=== PATIENT | male | born 1965 | race Asian ===

== ENCOUNTER 2022-03-10 20:09 | Outpatient (RCR) | payer OTHER, SELFPAY ==
[2022-03-10 21:00] LABS: Basophils Absolute Auto 0.02 K/uL (0.00-0.30); Basophils Percent Auto 0.3 % (0.0-3.0); Eosinophils Absolute Auto 0.07 K/uL (0.00-0.50); Eosinophils Percent Auto 1.1 % (0.0-7.0); Hematocrit 46.2 % (37.0-53.0); Hemoglobin* 14.8 gm/dL (13.5-17.5); Immature Granulocytes Abs Auto 0.01 K/uL (0.00-0.30); Lymphocytes Absolute Auto 2.08 K/uL (0.90-2.90); Lymphocytes Percent Auto 33.3 % (20-44); Mean Corpuscular HGB Conc 32 gm/dL (32-36); Mean Corpuscular Hemoglobin 30 pg (26-34); Mean Corpuscular Volume 94 fL (80-100); Monocytes Percent Auto 7.2 % (0.0-11.0); Neutrophils Absolute Auto 3.61 K/uL (1.7-7.0); Neutrophils Percent Auto 57.9 % (42.0-72.0); Platelet Count* 312 K/uL (140-440); RDW Coefficient of Variation % 12.3 % (11.5-15.5); Red Blood Count 4.93 m/uL (4.30-5.90); White Blood Count* 6.24 K/uL (4.50-11.00)
[2022-03-10 21:03] LABS: Slide Review Reflex No
[2022-11-22 17:03] LABS: Basophils Absolute Auto 0.02 K/uL (0.00-0.30); Basophils Percent Auto 0.3 % (0.0-3.0); Eosinophils Absolute Auto 0.14 K/uL (0.00-0.50); Eosinophils Percent Auto 2.2 % (0.0-7.0); Hematocrit 43.9 % (37.0-53.0); Hemoglobin* 14.4 gm/dL (13.5-17.5); Lymphocytes Absolute Auto 2.04 K/uL (0.90-2.90); Lymphocytes Percent Auto 31.4 % (20-44); Mean Corpuscular HGB Conc 33 gm/dL (32-36); Mean Corpuscular Hemoglobin 31 pg (26-34); Mean Corpuscular Volume 95 fL (80-100); Monocytes Percent Auto 7.2 % (0.0-11.0); Neutrophils Absolute Auto 3.83 K/uL (1.7-7.0); Neutrophils Percent Auto 58.9 % (42.0-72.0); Platelet Count* 272 K/uL (140-440); RDW Coefficient of Variation % 12.4 % (11.5-15.5); Red Blood Count 4.64 m/uL (4.30-5.90)
[2022-11-22 17:10] LABS: Slide Review Reflex No
== END 2023-03-03 23:00 | disposition home or self-care (01) ==
LOC: NPLBINS 20:09
PROVIDERS: PCP Internal Medicine; Visit Provider Internal Medicine
DX: Z79.899 Other long term (current) drug therapy (principal)
CPT/HCPCS: 36415; 85025

== ENCOUNTER 2022-07-06 18:06 | Emergency (ER) | payer OTHER, SELFPAY ==
[2022-07-06 19:59] VITALS: BP 125/64; PULSE 63; RESP 18; TEMP 36.4; O2SAT 97; BMI 32.9
--- NOTE | 2022-07-06 21:10 | CRLHL7_ITS ---
For Patients: As a result of the Century Cures Act, medical imaging exams and procedure reports are released immediately into your electronic medical record. You may view this report before your referring provider. If you have questions, please contact your health care provider. INDICATION: Vertigo. TECHNIQUE: CT head without contrast. COMPARISON: None. FINDINGS: CSF spaces: Within normal limits for age. Brain parenchyma: The mora-white differentiation is normal. Basal ganglia calcifications. No sign of mass, hemorrhage, or midline shift. Skull base and calvarium: The visualized paranasal sinuses and mastoid air cells demonstrate no acute or significant findings. Mildly anteroposterior elongation of the globes, nonspecific may reflect staphyloma versus axial myopia. No skull fractures. IMPRESSION: No acute intracranial abnormality. Please note that all CT scans at this facility use dose modulation, iterative reconstruction, and/or weight-based dosing when appropriate to reduce radiation dose to as low as reasonably achievable. Dictated by Holland Ng MD @ 07/06/2022 10:04:24 PM (Electronically Signed)
--- NOTE | 2022-07-06 21:10 | CRLHL7_ITS ---
For Patients: As a result of the Century Cures Act, medical imaging exams and procedure reports are released immediately into your electronic medical record. You may view this report before your referring provider. If you have questions, please contact your health care provider. DATE: 07/06/2022 CLINICAL HISTORY: Patient with vertigo. TECHNIQUE: Standard helical CT image acquisition of the neck up to the skull base after bolus intravenous contrast enhancement. Multiplanar reconstructed images performed on a separate workstation. COMPARISON: CT same day. FINDINGS: The origins of the great vessels from the aortic arch are patent. The origin of the right vertebral artery is patent. The origin of the left vertebral artery is patent. The common carotid arteries are patent. There is no stenosis at the origin of the right internal carotid artery. There is no stenosis at the origin of the left internal carotid artery. The rest of the cervical segments of the internal carotid arteries are patent up to the skull base. The left vertebral artery is dominant. The cervical segments of the vertebral arteries are patent up to the skull base. The visualized intracranial vasculature is unremarkable. The visualized lung apices are unremarkable. The thyroid gland is unremarkable. The soft tissues of the neck are unremarkable. There are degenerative changes in the cervical spine. IMPRESSION: Normal CT angiogram of the neck. Please note that all CT scans at this facility use dose modulation, iterative reconstruction, and/or weight-based dosing when appropriate to reduce radiation dose to as low as reasonably achievable. Dictated by Natasha Pritchard MD @ 07/07/2022 9:25:19 AM (Electronically Signed)
--- NOTE | 2022-07-06 21:10 | CRLHL7_ITS ---
For Patients: As a result of the Century Cures Act, medical imaging exams and procedure reports are released immediately into your electronic medical record. You may view this report before your referring provider. If you have questions, please contact your health care provider. DATE: 07/06/2022 CLINICAL HISTORY: Patient with vertigo. TECHNIQUE: Standard helical CT image acquisition through the intracranial circulation following intravenous administration of contrast material with bolus tracking. Multiplanar reconstructed images were performed and interpreted. COMPARISON: CT same day. FINDINGS: There is no cerebral aneurysm or large vessel occlusion. The right internal carotid artery is normal. The right middle cerebral artery and its branches are normal. The right anterior cerebral artery and its branches are normal. The left internal carotid artery is normal. The left middle cerebral artery and its branches are normal. The left anterior cerebral artery and its branches are normal. The anterior communicating artery is well visualized and appears normal. The right vertebral artery and PICA are normal. The left vertebral artery and PICA are normal. The left vertebral artery is dominant. The basilar artery is patent and appears normal. The right posterior cerebral artery is normal. The left posterior cerebral artery is normal. The visualized venous structures are patent. IMPRESSION: Normal CT angiogram of the head without intracranial aneurysm or other neurovascular abnormality. Please note that all CT scans at this facility use dose modulation, iterative reconstruction, and/or weight-based dosing when appropriate to reduce radiation dose to as low as reasonably achievable. Dictated by Natasha Pritchard MD @ 07/07/2022 9:27:36 AM (Electronically Signed)
--- OUTSIDE RECORDS SUMMARY | 2022-07-06 21:19 | XMS_ITS | Clinical Summary ---
:1965 Author Organization [facility] [place] [address] Care Team Providers Name Role Phone Rafaela Collins MD Primary Care Provider Allergies Active Allergy Reactions Severity Noted Date Comments Gluten Diarrhea High 04/09/2020 Lactose Diarrhea High 04/09/2020 Medications Medication Sig Dispensed Refills Start Date End Date Status prednisoLONE acetate Place 1 Drop into 0 02/18/2020 Active 1% ophthalmic both eyes every (ECONOPRED PLUS, PRED hour. FORTE, OMNIPRED) suspension ibuprofen (ADVIL; Take 600 mg by 0 Active MOTRIN) 200 mg tablet mouth once daily if needed. medication order CYCLOGYL? 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 Add as: CYCLOGYL 1 % ophthalmic solution 1 dispense in past 2 months Kan Cabrera MA ...............9:20 AM 04/09/2020 predniSONE Take 1 to 2 tabs 120 tablet 1 04/23/2020 Active (DELTASONE) 20 mg daily as directed tabletIndications: in taper Dwcs-Llinaots-Fudywx syndrome of both eyes predniSONE Take 1-1/2 tabs 100 tablet 1 05/22/2020 A ctive (DELTASONE) 10 mg daily x2 weeks tabletIndications: then 1 tab daily Jwcg-Vmjvugej-Bjegxv syndrome of both eyes, Sensorineural hearing loss (SNHL) of both ears pantoprazole TAKE 1 TABLET BY 90 tablet 0 10/16/2020 Active (PROTONIX) 40 mg MOUTH EVERY DAY delayed-release tabletIndications: Ghwy-Tedvejdo-Betgvx syndrome of both eyes Active Problems Problem Noted Date Ftgh-Kfkjrvwc-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 2-4 times a month 02/19/2020 How many drinks containing alcohol do you have on a Not aske d typical day when you are drinking? How often do you have six or more drinks on one Not asked occasion? Comment: Not asked Sex Assigned at Date Recorded Not on file Obstetrics History Last Filed Vital Signs Vital Sign Reading Time Taken Comments Blood Pressure 110/67 02/21/2020 9:05 AM CDT Pulse 66 02/21/2020 9:05 AM CDT Temperature 36.5 ??C (97.7 ??F) 02/21/2020 9:05 AM CDT Respiratory Rate 16 02/21/2020 9:05 AM CDT Oxygen Saturation 94% 02/21/2020 9:05 AM CDT Inhaled Oxygen Concentration - - Weight 106.6 kg (235 lb) 02/19/2020 2:39 PM CDT Height 177.8 cm (5' 10) 02/19/2020 2:39 PM CDT Body Mass Index 33.72 02/19/2020 2:39 PM CDT Plan of Treatment Health Maintenance Due Date Last Done Comments COVID-19 vaccine series (#1) 04/12/1966 Tdap 1976 Depression screening for age 12+ 1977 BMI (ht and wt on same day) for age 18+ 1983 Hepatitis C screening for age 18-79 1983 Tetanus booster 1985 Colonoscopy through age 75 2010 Lipids for age 45-75 2010 Zoster (shingles) series for age 50+ (1 of 2) 2015 Influenza for age 50-64 05/05/2022 Results Not on filefrom Last 3 Months Insurance Payer Benefit Plan / Subscriber ID Effective Dates Phone Addre ss Type Group [employer] [place] [employer] [id number] 2015-Present [address] [place] [address] ([id number] Advance Directives Latest Code Status on File Code Status Date Activated Date Inactivated Comments Full Code 02/19/2020 6:33 PM 02/21/2020 2:35 PM Care Teams Layer Out Plate Glass Relationship Specialty Start Date End Date Rafaela Collins MD PCP - General Internal Medicine 02/19/201999 [place] [address]
[2022-07-06 21:43] LABS: Basophils Absolute Auto 0.01 K/uL (0.00-0.30); Basophils Percent Auto 0.1 % (0.0-3.0); Eosinophils Absolute Auto 0.02 K/uL (0.00-0.50); Eosinophils Percent Auto 0.2 % (0.0-7.0); Hematocrit 47.1 % (37.0-53.0); Hemoglobin* 15.4 gm/dL (13.5-17.5); Lymphocytes Percent Auto 10.3 % (20-44); Mean Corpuscular HGB Conc 33 gm/dL (32-36); Mean Corpuscular Hemoglobin 31 pg (26-34); Mean Corpuscular Volume 94 fL (80-100); Monocytes Percent Auto 2.3 % (0.0-11.0); Platelet Count* 266 K/uL (140-440); RDW Coefficient of Variation % 12.3 % (11.5-15.5); Red Blood Count 5.04 m/uL (4.30-5.90); White Blood Count* 10.34 K/uL (4.50-11.00)
[2022-07-06 21:53] LABS: Slide Review Reflex No
[2022-07-06 22:08] LABS: Albumin* 4.8 g/dL (3.3-5.0); Chloride* 101 mmol/L (96-114); Potassium* 3.9 mmol/L (3.6-5.1); Sodium* 138 mmol/L (135-149)
[2022-07-06 22:10] LABS: Carbon Dioxide* 28 mmol/L (20-32); Creatinine* 0.8 mg/dL (0.5-1.5); Est. Creatinine Clearance* 106.46; Estimated Glomerular Filt Rate 104 ml/min
[2022-07-06 22:11] LABS: Alanine Aminotransferase* 33 U/L (4-50); Alkaline Phosphatase* 78 U/L (40-150); Aspartate Amino Transferase* 36 U/L (12-35); Bilirubin Direct* 0.1 mg/dL (0.0-0.5); Bilirubin Total* 0.5 mg/dL (0.1-1.5); Blood Urea Nitrogen* 14 mg/dL (7-30); Calcium* 9.5 mg/dL (8.4-10.6); Glucose* 130 mg/dL (60-115); Total Protein* 7.4 g/dL (6.0-8.3)
--- NOTE | 2022-07-06 22:14 | ED.GENADULT ---
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 Patient states that morning he felt a little bit off. He states that he stood up 1 time and felt a little bit lightheaded. But around 4 in he became acutely nauseated began to experience vertiginous symptoms with the room moving around him, and started vomiting profusely. This lasted for 2 hours nonstop. He stated that closed his eyes the feeling of lightheadedness and dizziness continued and this did not help the vomiting. He did state that if he stood very very still it helps a little bit but certainly did not remove the symptoms completely. After 2 hours of this, his symptoms finally started to subside and that is when he was able to get into his car and come to the ER. He states that now he feels very tired but he feels significantly better. He is no longer vertiginous. The room is no longer spinning around him. He is no longer vomiting or feeling nauseated. She states that he does get vertigo episodes because of the VKH, but has never been acute like this and associated with all the vomiting. He did call his doctor at [facility] who recommended he come to the ED to have his eye pressures checked. Related Data Home Medications Medication Instructions Recorded Confirmed mycophenolate mofetil 500 mg tablet 500 mg PO TID 07/06/22 07/06/22 prednisolone acetate 1 % eye drp ophthalmic (eye) 07/06/22 drops,suspension Allergies Allergy/AdvReac Type Severity Reaction Status Date / Time lactose AdvReac Intermediate diarrhea, Verified 07/06/22 21:33 GI upset Gluten Meal AdvReac Intermediate diarrhea, Uncoded 03/09/22 14:28 GI upset Review of Systems Status of ROS: Reports: 10 or more systems reviewed and unremarkable except as noted in History and below [facility] Surgical History (Updated 03/09/22 @ 14:28 by Nino Schaefer) History of appendectomy (2019) Social History Smoking Status: Never smoker How often do you have a drink containing alcohol: monthly or less AUDIT-C Alcohol total score: 1 Non-prescribed substance use: marijuana (any form) Exam Narrative: Exam Narrative: Well-nourished well-developed patient in no acute distress. Alert and oriented. Answers questions appropriately. Mood and affect are appropriate. Thoughts are goal oriented and rational. No tangential or magical thinking noted. Patient speaks in full sentences without needing to catch their breath. HEENT: Normocephalic atraumatic. Pupils are equally round reactive to light. Extraocular muscles are intact. Conjunctivae are moist without any icterus noted. Moist mucous membranes. Posterior pharynx is normal. Neck is soft without any lymphadenopathy or thyromegaly. No masses are appreciated. Cardiovascular: Heart is regular rate and rhythm S1 and S2 are present without any murmurs. Lungs: Clear to auscultation bilaterally no wheezes rhonchi or rales are appreciated. Patient takes deep breaths without any discomfort. Abdomen: Soft and nontender nondistended with normal bowel sounds. No guarding or rebound. No masses or organomegaly appreciated. Extremities: Bilateral lower extremities are without edema. Normal DP and PT pulses. Skin: Well perfused without any obvious rashes. Strength is 5/5 of the upper and lower extremities. Reflexes are 2+ and symmetric at the knees. Romberg sign is negative. Cranial nerves 3-12 are normal. Rvxdxe-kb-rkor is normal. Pxpg-fh-nsvq is normal. There is no nystagmus either horizontally or vertically. Gait is normal. Const: Vital Signs, click to edit/add: Vital Signs - 24 hr 07/06/22 19:59 Temperature 97.5 F L Pulse Rate [Pulse Oximeter] 63 Respiratory Rate 18 Blood Pressure [Ri ght Upper Arm] 125/64 Pulse Oximetry 97 Oxygen Delivery Me thod Room Air Course Course Hospital Course: Given the acute nature of his symptoms I was concerned about possibility of a stroke. We did proceed with a head CT, head and neck CTA. All were within normal limits. His labs were unremarkable. We were able to check his eye pressure: 18 mmHg on the right and 15 on the left-both within normal range. Vital Signs Vital signs: Initial Vital Signs Temperature 97.5 F L 07/06/22 19:59 Temperature Source Temporal Artery Scan 07/06/22 19:59 Pulse Rate 63 07/06/22 19:59 Respiratory Rate 18 07/06/22 19:59 Blood Pressure 125/64 07/06/22 19:59 Blood Pressure Mean 84 07/06/22 19:59 Blood Pressure Position Sitting 07/06/22 19:59 Pulse Oximetry 97 07/06/22 19:59 Oxygen Delivery Method 07/06/22 19:59 Vital Signs Temperature 97.5 F L 07/06/22 19:59 Pulse Rate 63 07/06/22 19:59 Respiratory Rate 18 07/06/22 19:59 Blood Pressure 125/64 07/06/22 19:59 Pulse Oximetry 97 07/06/22 19:59 Oxygen Delivery Method 07/06/22 19:59 Temperature 97.5 F L 07/06/22 19:59 Pulse Rate 63 07/06/22 19:59 Respiratory Rate 18 07/06/22 19:59 Blood Pressure 125/64 07/06/22 19:59 Pulse Oximetry 97 07/06/22 19:59 Oxygen Delivery Method 07/06/22 19:59 Medical Decision Making MDM Narrative Medical decision making narrative: Acute episode of vertigo and vomiting now resolved. Unclear if this is related to his VKH disease. Symptoms now completely resolved without any evidence of stroke on CTA. At this point given that the patient is asymptomatic, I do recommend he follow-up is team of doctors for further management. Lab Data Lab results reviewed: Yes I reviewed the patient's lab results Labs: Lab Results 07/06/22 07/06/22 Range/Units 21:25 21:25 WBC 10.34 (4.50-11.00) K/uL RBC 5.04 (4.30-5.90) m/uL Hgb 15.4 (13.5-17.5) gm/dL Hct 47.1 (37.0-53.0) % MCV 94 (80-100) fL MCH 31 (26-34) pg MCHC 33 (32-36) gm/dL RDW Coeff of Reilly 12.3 (11.5-15.5) % Plt Count 266 (140-440) K/uL Neut % (Auto) 87.0 H (42.0-72.0) % Lymph % (Auto) 10.3 L (20-44) % [place] % (Auto) 2.3 (0.0-11.0) % Eos % (Auto) 0.2 (0.0-7.0) % Baso % (Auto) 0.1 (0.0-3.0) % Neut # (Auto) 9.00 H (1.7-7.0) K/uL Lymph # (Auto) 1.10 (0.90-2.90) K/uL [place] # (Auto) 0.20 (0.00-0.90) K/UL Eos # (Auto) 0.02 (0.00-0.50) K/uL Baso # (Auto) 0.01 (0.00-0.30) K/uL Abs Immat Gran (auto) 0.01 (0.00-0.30) K/uL Sodium 138 (135-149) mmol/L Potassium 3.9 (3.6-5.1) mmol/L Chloride 101 (96-114) mmol/L Carbon Dioxide 28 (20-32) mmol/L BUN 14 (7-30) mg/dL Creatinine 0.8 (0.5-1.5) mg/dL Estimated Creat Clear 106.46 Estimated GFR 104 ml/min Glucose 130 H (60-115) mg/dL Calcium 9.5 (8.4-10.6) mg/dL Total Bilirubin 0.5 (0.1-1.5) mg/dL Direct Bilirubin 0.1 (0.0-0.5) mg/dL AST 36 H (12-35) U/L ALT 33 (4-50) U/L Alkaline Phosphatase 78 (40-150) U/L Troponin I < 0.01 L (0.01-0.04) ng/mL Total Protein 7.4 (6.0-8.3) g/dL Albumin 4.8 (3.3-5.0) g/dL Imaging Data CT scan - head: Attestation: I have reviewed the pertinent imaging results. Radiologist's impression: TECHNIQUE: CT head without contrast. COMPARISON: None. FINDINGS: CSF spaces: Within normal limits for age. Brain parenchyma: The mora-white differentiation is normal. Basal ganglia calcifications. No sign of mass, hemorrhage, or midline shift. Skull base and calvarium: The visualized paranasal sinuses and mastoid air cells demonstrate no acute or significant findings. Mildly anteroposterior elongation of the globes, nonspecific may reflect staphyloma versus axial myopia. No skull fractures. IMPRESSION: No acute intracranial abnormality. Head neck CTA: Attestation: I have reviewed the pertinent imaging results. Radiologist's impression: IMPRESSION: CTA head: Unremarkable. No sign of occlusion or significant aneurysm. CTA neck: Unremarkable. No sign of dissection or significant stenosis. ECG Data Attestation: I personally reviewed and interpreted this ECG as follows: (Sinus bradycardia with a pulse of 58, incomplete right bundle-branch block.) Discharge Plan Discharge Clinical Impression: Vertigo Patient Disposition: Home, Self-Care Condition: Improved Additional Instructions: Recommend you follow-up with your team of physicians for a follow-up examination. Prescriptions: No Action mycophenolate mofetil 500 mg tablet 500 mg PO TID prednisolone acetate 1 % drops,suspension ophthalmic (eye) Follow Up/Referrals: Rafaela Collins MD [Primary Care Provider] - Stand Alone Forms: Quantitative Medicine Info Instructions
[2022-07-06 22:26] LABS: Troponin I* < 0.01 ng/mL (0.01-0.04)
== END 2022-07-06 22:38 | disposition home or self-care (01) ==
PROVIDERS: Emergency Provider Family Medicine; PCP Internal Medicine
DX: R42 Dizziness and giddiness (principal)
CPT/HCPCS: 36415; 70450; 70496; 70498; 80048; 80076; 84484; 85025; 93005; 99285; Q9967

== ENCOUNTER 2023-03-29 11:30 | Outpatient (RCR) | payer OTHER, SELFPAY ==
[2023-03-29 11:45] LABS: Basophils Absolute Auto 0.02 K/uL (0.00-0.30); Basophils Percent Auto 0.4 % (0.0-3.0); Eosinophils Absolute Auto 0.22 K/uL (0.00-0.50); Eosinophils Percent Auto 4.1 % (0.0-7.0); Hemoglobin* 14.7 gm/dL (13.5-17.5); Lymphocytes Absolute Auto 2.21 K/uL (0.90-2.90); Lymphocytes Percent Auto 41.2 % (20-44); Mean Corpuscular HGB Conc 33 gm/dL (32-36); Mean Corpuscular Hemoglobin 31 pg (26-34); Mean Corpuscular Volume 95 fL (80-100); Monocytes Percent Auto 7.3 % (0.0-11.0); Neutrophils Absolute Auto 2.53 K/uL (1.7-7.0); Platelet Count* 271 K/uL (140-440); RDW Coefficient of Variation % 12.4 % (11.5-15.5); Red Blood Count 4.75 m/uL (4.30-5.90); White Blood Count* 5.37 K/uL (4.50-11.00)
[2023-03-29 11:50] LABS: Slide Review Reflex No
== END 2024-03-03 08:12 | disposition home or self-care (01) ==
LOC: LAB 11:30
PROVIDERS: PCP Internal Medicine; Visit Provider Internal Medicine
DX: Z79.899 Other long term (current) drug therapy (principal)
CPT/HCPCS: 36415; 85025

== ENCOUNTER 2023-08-21 15:16 | Outpatient (RCR) | payer OTHER, SELFPAY | END 2023-10-06 14:20 | disposition home or self-care (01) | PROVIDERS: PCP Internal Medicine; Visit Provider Physician Assistant Surgical | DX: M25.511 Pain in right shoulder (principal); M75.31 Calcific tendinitis of right shoulder; M53.84 Other specified dorsopathies, thoracic region; R29.898 Other symptoms and signs involving the musculoskeletal system; Z74.09 Other reduced mobility; Z51.89 Encounter for other specified aftercare | CPT/HCPCS: 97110; 97161 ==

== ENCOUNTER 2023-09-27 13:38 | Emergency (ER) | payer OTHER, SELFPAY ==
[2023-09-27] VITALS (20 sets, daily range): BP systolic 118–139; BP diastolic 76–106; PULSE 45–86; RESP 16; TEMP 35.9; O2SAT 97–100; BMI 30.3
--- NOTE | 2023-09-27 15:36 | ED.GENADULT ---
HPI - General Adult General Date Seen: 09/27/23 Chief complaint: Abdominal Pain Stated complaint: Abdominal pain Time Seen by Provider: 09/27/23 15:00 History of Present Illness HPI narrative: 57-year-old gentleman who presents to the ER today for abdominal pain. Patient began overnight last night. He was awoken sub 1st from sleep with abdominal pain. He has also had some bright red bloody stools today. He is intermittently nauseous. has h/o Bcaw-Fcskcmzp-Nnwfdp disease and takes mycophenalate . He also has a history of gluten sensitivity and can get crampy abdominal pain and bloody stools whenever he eats gluten. He has been fairly good restricting his gluten for the past few years so really has symptoms. He does not know what he ate that would have triggered a gluten reaction. He did have some gluten free pizza yesterday. He was awoken from sleep overnight with crampy abdominal pain. He had a bloody (bright red liquid blood) stool. Difficult estimate total volume but perhaps a tbsp or a couple of tbsp. He had a crampy pain that kept him up throughout the night. He was feeling tired and worn out this morning with ongoing pain. He did have 1 normal brown bowel movement this morning. Since then he has had several episodes where a head urgency to pass a BM but knows stool. This afternoon he had another episode where he thought he had to go to the bathroom but only passed a few drops of small red liquid. Difficult for him to estimate total volume but perhaps a tsp or tbsp. He is not lightheaded. He is not having fever or chills. No other body aches or systemic illness. No weakness. No rectal discomfort or any concern for skin breakdown or fissure. No recent travel. No recent antibiotics. No known sick contacts. He has been taking his mycophenolate, but actually is working with his doctors through the [facility] and may be reducing the dose upcoming. He is not on any other steroids. Related Data Home Medications Medication Instructions Recorded Confirmed mycophenolate mofetil 500 mg tablet 500 mg PO TID 07/06/22 08/15/23 prednisolone acetate 1 % eye drp ophthalmic (eye) 07/06/22 08/15/23 drops,suspension Allergies Allergy/AdvReac Type Severity Reaction Status Date / Time lactose AdvReac Intermediate diarrhea, Verified 08/15/23 14:37 GI upset gluten AdvReac Gastrointestinal Verified 08/15/23 14:37 [facility]et [facility] Medical History (Updated 09/27/23 @ 18:58 by Vinay Bull MD) Lesion of vocal cord (~1970) ?J38.3 - Other diseases of vocal cords (ICD-10) Surgical History (Updated 08/14/23 @ 14:52 by Magaly Naik ~ [facility], [facility]) History of arthroscopy of right knee (12/06/05) ?Z98.890 - Other specified postprocedural states (ICD-10) History of appendectomy (03/02/19) ?Z90.49 - Acquired absence of other specified parts of digestive tract (ICD-10) Social History Smoking Status: Never smoker How often do you have a drink containing alcohol: monthly or less AUDIT-C Alcohol total score: 1 Non-prescribed substance use: marijuana (any form) Exam Narrative: Exam Narrative: Constitutional: Appears well-developed and well-nourished. Alert. Conversant. Non toxic. HENT: Head: Atraumatic. Nose: Nose normal. Mouth/Throat: Oral mucosa is clear and moist. no trismus. Pharynx normal. Tonsils symmetric. No tonsillar enlargement, erythema, or exudate. Eyes: Conjunctivae normal. EOM normal. Pupils equal, round, and reactive to light. No scleral icterus. Neck: Normal range of motion. Neck supple. No tracheal deviation present. Cardiovascular: Normal rate, regular rhythm. No gallop. No friction rub. No murmur heard. Symmetric radial artery pulses Pulmonary/Chest: Effort normal. No stridor. No respiratory distress. No wheezes. No rales. No rhonchi . No tenderness. Abdominal: Soft. Bowel sounds normal. No distension. No mass. No tenderness. No rebound. No guarding. Musculoskeletal: RUE: Normal range of motion. No tenderness. No deformity LUE: Normal range of motion. No tenderness. No deformity RLE: Normal range of motion. No edema. No tenderness. No deformity LLE: Normal range of motion. No edema. No tenderness. No deformity Lymph: No cervical adenopathy. Neurological: Alert and oriented to person, place, and time. Normal strength. CN II-VII intact. No sensory deficit. GCS eye subscore is 4. GCS verbal subscore is 5. GCS motor subscore is 6. Normal coordination Skin: Skin is warm and dry. No rash noted. No pallor. Normal capillary refill. Psychiatric: Normal mood. Normal affect. Const: Vital Signs, click to edit/add: Vital Signs - 24 hr 09/27/23 13:44 09/27/23 13:58 09/27/23 13:59 Temperature 96.7 F L Pulse Rate 66 64 Pulse Rate [Pulse Oximeter] 45 L Respiratory Rate 16 Blood Pressure 139/106 H Blood Pressure [Ri ght Upper Arm] 118/76 Pulse Oximetry 100 100 [facility] 09/27/23 14:00 09/27/23 14:15 09/27/23 14:30 Temperature Pulse Rate 62 64 61 Pulse Rate [Pulse Oximeter] Respiratory Rate Blood Pressure Blood Pressure [Ri ght Upper Arm] Pulse Oximetry 99 100 100 [facility] 09/27/23 14:45 09/27/23 15:00 09/27/23 15:15 Temperature Pulse Rate 67 68 75 Pulse Rate [Pulse Oximeter] Respiratory Rate Blood Pressure Blood Pressure [Ri ght Upper Arm] Pulse Oximetry 100 99 99 [facility] 09/27/23 15:33 09/27/23 15:45 09/27/23 16:00 Temperature Pulse Rate 73 73 66 Pulse Rate [Pulse Oximeter] Respiratory Rate Blood Pressure Blood Pressure [Ri ght Upper Arm] Pulse Oximetry 99 100 99 [facility] 09/27/23 16:25 09/27/23 16:30 09/27/23 16:45 Temperature Pulse Rate 75 75 78 Pulse Rate [Pulse Oximeter] Respiratory Rate Blood Pressure Blood Pressure [Ri ght Upper Arm] Pulse Oximetry 97 98 99 [facility] 09/27/23 17:00 09/27/23 17:15 09/27/23 17:30 Temperature Pulse Rate 75 82 77 Pulse Rate [Pulse Oximeter] Respiratory Rate Blood Pressure Blood Pressure [Ri ght Upper Arm] Pulse Oximetry 97 97 97 [facility] 09/27/23 17:45 Temperature Pulse Rate 79 Pulse Rate [Pulse Oximeter] Respiratory Rate Blood Pressure Blood Pressure [Ri ght Upper Arm] Pulse Oximetry 97 Oxygen Delivery Me thod Course Course ED Course: Recheck-still declines pain meds. Doing well. No diarrhea in the past couple of hours since our 1st encounter. Pain still mild and tolerable. If anything, getting better. He is thirsty and wants to go home. Vital Signs Vital signs: Initial Vital Signs Temperature 96.7 F L 09/27/23 13:44 Temperature Source Temporal Artery Scan 09/27/23 13:44 Pulse Rate 45 L 09/27/23 13:44 Pulse Rhythm Irregular 09/27/23 13:44 Respiratory Rate 16 09/27/23 13:44 Blood Pressure 118/76 09/27/23 13:44 Blood Pressure Mean 90 09/27/23 13:44 Blood Pressure Position Sitting 09/27/23 13:44 Pulse Oximetry 100 09/27/23 13:44 Oxygen Delivery Method Room Air 09/27/23 13:44 Vital Signs Temperature 96.7 F L 09/27/23 13:44 Pulse Rate 45 L 09/27/23 13:44 Respiratory Rate 16 09/27/23 13:44 Blood Pressure 118/76 09/27/23 13:44 Pulse Oximetry 100 09/27/23 13:44 Oxygen Delivery Method Room Air 09/27/23 13:44 Temperature 96.7 F L 09/27/23 13:44 Pulse Rate 79 09/27/23 17:45 Respiratory Rate 16 09/27/23 13:44 Blood Pressure 139/106 H 09/27/23 13:58 Pulse Oximetry 97 09/27/23 17:45 Oxygen Delivery Method Room Air 09/27/23 13:44 Medical Decision Making [facility] Narrative Medical decision making narrative: Presented to the Emergency Department with bilateral lower quadrant, left> right sided abdominal pain along with a couple of bloody stools/a bit of diarrhea. The differential diagnosis of abdominal pain includes: Appendicitis, Bowel Obstruction, Ulcer, Ischemia, Cholecystitis, Diverticulitis, Pancreatitis, UTI, kidney stone, Enteritis/Colitis, amongst many other etiologies. []Laboratory testing does not reveal a cause for the patient's pain. Differential would also include colitis, such as infectious colitis, autoimmune. Less likely would be ischemic, given young age. He is on CellCept for his autoimmune disease which put him at risk for infections. He also has a history of gluten sensitivity so could be having symptoms due to gluten enteropathy as well. CT Imaging is noted to be normal. Laboratory workup reassuring. The exact etiology of the abdominal pain and bloody stool is not clear at this time. No life threatening cause or need for emergent surgery or hospital admission is detected today. The patient was advised that if symptoms do not completely resolve within another 12-24 hours re-evaluation with primary care or return to the ED is indicated. The patient also understands that if they worsen, they should return to the ER right away. I discussed the uncertainty about the diagnosis and answered the patient's questions. Abdominal pain return precautions discussed. Will order outpatient stool culture and C diff since he is on mycophenolate. He is provided with a stool collection kit and he will return back sample to the lab if ongoing diarrhea. Lab Data Labs: Lab Results 09/27/23 Range/Units 15:44 WBC 8.30 (4.50-11.00) K/uL RBC 4.76 (4.30-5.90) m/uL Hgb 14.5 (13.5-17.5) gm/dL Hct 45.1 (37.0-53.0) % MCV 95 (80-100) fL MCH 31 (26-34) pg MCHC 32 (32-36) gm/dL RDW Coeff of Reilly 12.4 (11.5-15.5) % Plt Count 289 (140-440) K/uL Neut % (Auto) 80.0 H (42.0-72.0) % Lymph % (Auto) 13.6 L (20-44) % Elk % (Auto) 6.0 (0.0-11.0) % Eos % (Auto) 0.2 (0.0-7.0) % Baso % (Auto) 0.1 (0.0-3.0) % Neut # (Auto) 6.60 (1.7-7.0) K/uL Lymph # (Auto) 1.10 (0.90-2.90) K/uL Elk # (Auto) 0.50 (0.00-0.90) K/UL Eos # (Auto) 0.02 (0.00-0.50) K/uL Baso # (Auto) 0.01 (0.00-0.30) K/uL Abs Immat Gran (auto) 0.01 (0.00-0.30) K/uL Imm/Tot Granulo (auto) 0.1 % Sodium 138 (135-149) mmol/L Potassium 4.1 (3.6-5.1) mmol/L Chloride 105 (96-114) mmol/L Carbon Dioxide 26 (20-32) mmol/L Anion Gap 7 (7-15) mEq/L BUN 11 (7-30) mg/dL Creatinine 0.6 (0.5-1.5) mg/dL Estimated Creat Clear 140.25 Estimated GFR 113 ml/min Glucose 105 (60-115) mg/dL Calcium 8.9 (8.4-10.6) mg/dL Total Bilirubin 0.6 (0.1-1.5) mg/dL AST 41 H (12-35) U/L ALT 40 (4-50) U/L Alkaline Phosphatase 73 (40-150) U/L Total Protein 6.8 (6.0-8.3) g/dL Albumin 4.2 (3.3-5.0) g/dL Lipase 46 (23-300) U/L Discharge Plan Discharge Clinical Impression: Bloody stool, Abdominal pain Patient Disposition: Home, Self-Care Condition: Stable Instructions: Rectal Bleeding (ED), Abdominal Pain (ED) Additional Instructions: As we discussed, please come back to the ER right away if her symptoms worsen. If your symptoms are not completely resolved within 24 hours, please come back to the ER for a recheck. If you have ongoing bloody stool or diarrhea, please collect a sample and bring back stool to the lab for a stool culture and Clostridium difficile test. Prescriptions: No Action mycophenolate mofetil 500 mg tablet 500 mg PO TID prednisolone acetate 1 % drops,suspension ophthalmic (eye) Follow Up/Referrals: Rafaela Collins MD [Primary Care Provider] - Stand Alone Forms: [employer] Info Instructions
--- NOTE | 2023-09-27 16:00 | CRLHL7_ITS ---
For Patients: As a result of the Century Cures Act, medical imaging exams and procedure reports are released immediately into your electronic medical record. You may view this report before your referring provider. If you have questions, please contact your health care provider. INDICATION: ABD PAIN, BLOODY DIARRHEA X1 DAY TECHNIQUE: CT abdomen and pelvis acquired with 100 cc Isovue 370 IV contrast. COMPARISON: CT abdomen/pelvis on March 02, 2019 FINDINGS: Lower chest: Stable calcified granulomas in the medial left lower lobe. Liver: Unremarkable. Normal in size and attenuation. No suspicious masses. Gallbladder and bile ducts: Unremarkable. No stones or inflammation. No biliary dilatation. Pancreas: Unremarkable. No mass or inflammation. Spleen: Unremarkable. Normal in size. No masses. Adrenal glands: Unremarkable. No nodules. Kidneys: Unremarkable. No suspicious masses. Tiny nonobstructing 2 millimeter stone at the lower pole of the right kidney. No hydronephrosis. GI tract: No evidence of bowel obstruction or inflammation. Status post appendectomy. Few colonic diverticula without CT evidence of acute diverticulitis. Vasculature: Abdominal aorta is normal in caliber. Mesenteric arteries are patent. Lymph nodes: No lymphadenopathy. Peritoneum/Abdominal Wall: Unremarkable. No sign of mass or infiltration. No free air or significant free fluid. Pelvis: Mildly enlarged prostate with similar appearing central calcifications. Bones: No acute fracture or malalignment. Similar-appearing degenerative disc disease throughout the lumbar spine. No suspicious osseous lesions. IMPRESSION: 1. No CT evidence of an acute process involving the abdomen or pelvis. 2. Incidental findings as detailed above. Please note that all CT scans at this facility use dose modulation, iterative reconstruction, and/or weight-based dosing when appropriate to reduce radiation dose to as low as reasonably achievable. Dictated by Anatoliy Christie MD @ 09/27/2023 4:44:26 PM (Electronically Signed)
[2023-09-27 16:17] LABS: Hematocrit 45.1 % (37.0-53.0); Hemoglobin* 14.5 gm/dL (13.5-17.5); Mean Corpuscular HGB Conc 32 gm/dL (32-36); Mean Corpuscular Hemoglobin 31 pg (26-34); Mean Corpuscular Volume 95 fL (80-100); Platelet Count* 289 K/uL (140-440); Red Blood Count 4.76 m/uL (4.30-5.90)
[2023-09-27 16:18] LABS: Basophils Absolute Auto 0.01 K/uL (0.00-0.30); Basophils Percent Auto 0.1 % (0.0-3.0); Eosinophils Absolute Auto 0.02 K/uL (0.00-0.50); Eosinophils Percent Auto 0.2 % (0.0-7.0); Immature Granulocytes Abs Auto 0.01 K/uL (0.00-0.30); Immature Granulocytes Pct Auto 0.1 %; Lymphocytes Percent Auto 13.6 % (20-44); RDW Coefficient of Variation % 12.4 % (11.5-15.5)
[2023-09-27 16:31] LABS: Slide Review Reflex No
[2023-09-27 16:35] LABS: Albumin* 4.2 g/dL (3.3-5.0); Chloride* 105 mmol/L (96-114); Potassium* 4.1 mmol/L (3.6-5.1); Sodium* 138 mmol/L (135-149)
[2023-09-27 16:38] LABS: Alanine Aminotransferase* 40 U/L (4-50); Alkaline Phosphatase* 73 U/L (40-150); Anion Gap 7 mEq/L (7-15); Aspartate Amino Transferase* 41 U/L (12-35); Bilirubin Total* 0.6 mg/dL (0.1-1.5); Blood Urea Nitrogen* 11 mg/dL (7-30); Calcium* 8.9 mg/dL (8.4-10.6); Carbon Dioxide* 26 mmol/L (20-32); Creatinine* 0.6 mg/dL (0.5-1.5); Est. Creatinine Clearance* 140.25; Estimated Glomerular Filt Rate 113 ml/min; Glucose* 105 mg/dL (60-115); Lipase* 46 U/L (23-300); Total Protein* 6.8 g/dL (6.0-8.3)
--- OUTSIDE RECORDS SUMMARY | 2023-09-27 16:38 | XMS_ITS | Encounter Summary ---
Author Name Unknown Organization [facility] Address [address] [place] [address] Care Team Providers Care Cooler Worker Name Role Phone Elsewhere, Pcp Primary Care Provider Unavailabl e Encounter Details Date Type Department Care Team (Late st Contact Info) Description 05/01/2023 Orders Only Division of Rheumatology in [place], [place] [address] [place] [address] Christofer England, FITNESS CLUB MANAGER, C.N.P. [address] [place] [address] Vogt Koyanagi Syndrome Bilateral Social History Tobacco Use Types Packs/Day Years Used Date Smoking Tobacco: Passive Smo ke Exposure - Never Smoker Passive Smoke Exposure: Yes Smokeless Tobacco: Former Chew Quit: 10/01/1988 Alcohol Use Standard Drinks/Week Comments Yes 4 (1 standard drink = 0.6 oz pur e alcohol) Humiliation, Afraid, Rape, and Kick questionnair e Answer Date Recorded Within the last year, have y ou been afraid of your partner or ex-partner? No 04/07/2023 Within the last year, have y ou been humiliated or emotionally abused in other ways by your partner or ex-partner? No Within the last year, have y ou been kicked, hit, slapped, or otherwise physically hurt by your partner or ex-partner? No 04/07/2023 Within the last year, have y ou been raped or forced to have any kind of sexual activity by your partner or ex-partner? No 04/07/2023 Social Connection and Isolation Panel [NHANES] A nswer Date Recorded In a typical week, how many times do you talk on the phone with family, friends, or neighbors? Never 08/15/2021 How often do you get together with friends or re latives? Once a week 08/15/2021 How often do you attend yarsani or orthodox serv ices? Never 08/15/2021 Do you belong to any clubs o r organizations such as yarsani groups, unions, fraternal or athletic groups, or school groups? No 08/15/2021 How often do you attend meet ings of the clubs or organizations you belong to? Never 08/15/2021 Are you , , di vorced, , never , or living with a partner? 08/15/2021 AUDIT-C Answer Date Recorded Q1: How often do you have a drink containing alc ohol? 2-3 times a week 08/15/2021 Q2: How many drinks containi ng alcohol do you have on a typical day when you are drinking? 1 or 2 08/15/2021 Q3: How often do you have si x or more drinks on one occasion? Never 08/15/2021 Overall Financial Resource Strain (CARDIA) Answe r Date Recorded How hard is it for you to pa y for the very basics like food, housing, medical care, and heating? Not hard at all 04/07/2023 [facility] of Occupat ional Health - Occupational Stress Questionnaire Answer Date Recorded Do you feel stress - tense, restless, nervous, or anxious, or unable to sleep at night because your mind is troubled all the time - these days? To some extent 08/15/2021 Exercise Vital Sign Answer Date Recorde d On average, how many days pe r week do you engage in moderate to strenuous exercise (like a brisk walk)? 4 days 02/01/2023 On average, how many minutes do you engage in exercise at this level? 70 min 02/01/2023 Hunger Vital Sign Answer Date Recorded Within the past 12 months, y ou worried that your food would run out before you got the money to buy more. Never true 04/07/20 23 Within the past 12 months, t he food you bought just didn't last and you didn't have money to get more. Never true 04/07/2023 PRAPARE - Transportation Answer Date Re corded In the past 12 months, has l ack of transportation kept you from medical appointments or from getting medications? No 12/2022 In the past 12 months, has l ack of transportation kept you from meetings, work, or from getting things needed for daily living? No 04/07/2023 Nutrition Answer Date Recorded Nutrition: EVOO Fat Source No 02/01 On average, how many serving s of fruits and vegetables do you eat per day (serving size is equal to 1 cup or approximately the size of a tennis ball)? 0-2 02/01/2023 Dental Answer Date Recorded Dental: Regular Dentist Yes 09/04/19 Employment Answer Date Recorded Employment status Employed and actively working without restrictions 02/01/2023 Housing Stability Answer Date Recorded What is your living situation today? I have a [facility] place to live 04/07/2023 Education Answer Date Recorded What is the highest level of school you have completed or the highest degree you have received? Professional school degree (e.g., MD, DDS, DVM, EFREM) 07/16/2020 Sex and Gender Information Value Date Recorded Sex Assigned at Male 08/15/2021 10:21 AM INSPECTOR [employer] Gender Identity Male 08/15/2021 10:21 AM INSPECTOR [employer] Sexual Orientation Straight 08/15/2021 10 :21 AM INSPECTOR [employer]S documented as of this encounter Plan of Treatment Not on file documented as of this encounter Visit Diagnoses Diagnosis Vogt Koyanagi Syndrome Bilateral documented in this encounter Care Teams Cooler Worker Relationship Specialty Start Date End Date Elsewhere, Pcp PCP - General Internal Medicine 04/13/23 documented as of this encounter
--- OUTSIDE RECORDS SUMMARY | 2023-09-27 16:38 | XMS_ITS | Clinical Summary ---
Author Name Unknown Organization [facility] Address [place], [place] [address] Care Team Providers Care Cylinder Honer Name Role Phone Rafaela Collins MD Primary Care Provider [phone] Allergies Active Allergy Reactions Criticality Noted Date Comments Gluten Diarrhea High 04/09/2020 Lactose Diarrhea High 04/09/2020 Medications Medication Sig Dispensed Refills Start Date End Date Status prednisoLONE acetate 1% ophthalmic (ECONOPRED PLUS, PRED FORTE, OMNIPRED) suspension Place 1 Drop into both eyes every hour. 0 02/18/2020 Active ibuprofen (ADVIL; MOTRIN) 200 mg tablet Take 600 mg by mouth once daily if needed. 0 Active medication order composer CYCLOGYL? AYLA 1% OP New Add as: CYCLOGYL 1 % ophthalmic solution 1 dispense in past 2 months Maryistarikki Cabrera MA ...............9:2 0 AM 04/09/2020 0 04/09/2020 Active predniSONE (DELTASONE) 20 mg tabletIndications:V oaa-Juokzsoe-Ojfxka syndrome of both eyes Take 1 to 2 tabs daily as directed in taper 120 tablet 1 04/23/2020 Active predniSONE (DELTASONE) 10 mg tabletIndications:V xsk-Dtvwdzdr-Hbgcuc syndrome of both eyes,Sensorineural hearing loss (SNHL) of both ears Take 1-1/2 tabs daily x2 weeks then 1 tab daily 100 tablet 1 05/22/2020 Active pantoprazole (PROTONIX) 40 mg delayed-release tabletIndications:V jwk-Kljgslqn-Vbslvj syndrome of both eyes TAKE 1 TABLET BY MOUTH EVERY DAY 90 tablet 0 10/16/2020 Active Active Problems Problem Noted Date Diagnosed Date Gerg-Jqqglhpv-Yebfei syndrome of both eyes 02/18 Acute headache 02/19/2020 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 Social History Tobacco Use Types Packs/Day Years Used Date Smoking Tobacco: Never Smokeless Tobacco: Former Chew Quit: 02/27/1990 Alcohol Use Standard Drinks/Week Comments Yes 0 (1 standard drink = 0.6 oz pur e alcohol) Social Connections Answer Date Recorded Frequency of Communication with Friends and Fami ly Not on file 09/04/2021 Financial Resource Strain Answer Date R ecorded Difficulty of Paying Living Expenses Not on file 09/04/2021 Difficulty of Paying Living Expenses Not on file 09/04/2021 Sex and Gender Information Value Date Recorded Sex Assigned at Not on file Gender Identity Not on file Sexual Orientation Not on file Obstetrics History Last Filed Vital Signs Vital Sign Reading Time Taken Comments Blood Pressure 110/67 02/21/2020 9:05 AM CDT Pulse 66 02/21/2020 9:05 AM CDT Temperature 36.5 ??C (97.7 ??F) 02/21/2020 9:05 AM CD T Respiratory Rate 16 02/21/2020 9:05 AM CDT [...] 1976 Depression screening for age 12+ 1977 HIV for age 15-65 1980 BMI (ht and wt on same day) for age 18+ 1983 Hepatitis C screening for ag e 18-79 1983 Tetanus booster 1985 Colonoscopy through age 75 2010 Lipids for age 45-75 2010 Zoster (shingles) series for age 50+ (1 of 2) 2015 Influenza for age 50-64 05/05/2023 Pneumococcal series for age 6-64 Aged Out No longer eligible based on patient's age to complete this topic Advance Directives Latest Code Status on File Code Status Date Activated Date Inactivated Comments Full Code 02/19/2020 6:33 PM 02/21/2020 2:35 PM Care Teams Cylinder Honer Relationship Specialty Start Date End Date Rafaela Collins MD [address] [place] [address] PCP - General Internal Medicine 02/19/20
--- OUTSIDE RECORDS SUMMARY | 2023-09-27 16:38 | XMS_ITS | Encounter Summary ---
Author Name Unknown Organization [facility] Address [address] [place] [address] Care Team Providers Care Salary And Wage Administrator Name Role Phone Elsewhere, Pcp Primary Care Provider Unavailabl e Reason for Visit * Reason Onset Date Comments Med Refill Order Clarification 05/03/2023 QTY still no t right Encounter Details Date Type Department Care Team (Late st Contact Info) Description 05/03/2023 Refill Division of Rheumatology in [place], [place] [address] [place] [address] Christofer England, TESTING ENGINEER, C.N.P. [address] [place] [address] Med Refill; Order Clarification (QTY still not right) Social History Tobacco Use Types Packs/Day Years [...] week 08/15/2021 How often do you attend jainism or episcopalian serv ices? Never 08/15/2021 Do you belong to any clubs o r organizations such as jainism groups, unions, fraternal or athletic groups, or [...] and heating? Not hard at all 04/07/2023 [facility] of Occupat ional Health - Occupational Stress [...] money to buy more. Never true 04/07/20 Within the past 12 months, t he [...] your living situation today? I have a [facility] place to live 04/07/2023 Education Answer Date Recorded What is the highest level of school you have completed or the highest degree you have received? Professional school degree (e.g., MD, DDS, DVM, EFREM) 07/16/2020 Sex and Gender Information Value Date Recorded Sex Assigned at Male 08/15/2021 10:21 AM DINKEY MECHANIC Gender Identity Male 08/15/2021 10:21 AM DINKEY MECHANIC Sexual Orientation Straight 08/15/2021 10 :21 AM DINKEY MECHANIC documented as of this encounter Miscellaneous Notes * Addendum Note - Kassidy Liang R.N. - 05/23/2023 1:02 PM CDTAddended by: KASSIDY LIANG on: 05/23/2023 01:02 PM Modules accepted: Orders * Telephone Encounter - Christofer England APRN, C.N.P. - 05/03/2023 12:36 PM CDT Updated rx sent. documented in this encounter Plan of Treatment Not on file documented as of this encounter Visit Diagnoses Diagnosis Vogt Koyanagi Syndrome Bilateral documented in this encounter Care Teams Salary And Wage Administrator Relationship Specialty Start Date End Date Elsewhere, Pcp PCP - General Internal Medicine 04/13/23 documented as of this encounter
--- OUTSIDE RECORDS SUMMARY | 2023-09-27 16:38 | XMS_ITS | Encounter Summary ---
Author Name Unknown Organization [facility] Address [address] [place] [address] Care Team Providers Care Computer Programmer Name Role Phone Elsewhere, Pcp Primary Care Provider Unavailabl e Encounter Details Date Type Department Care Team (Late st Contact Info) Description 04/27/2023 3:00 PM CDT Ancillary Procedure Department of Ophthalmology Social History Tobacco Use Types Packs/Day Years [...] week 08/15/2021 How often do you attend scientology or religion serv ices? Never 08/15/2021 Do you belong to any clubs o r organizations such as scientology groups, unions, fraternal or athletic groups, or [...] and heating? Not hard at all 04/07/2023 [facility] - Occupational Stress [...] your living situation today? I have a [facility] place to live 04/07/2023 Education Answer Date Recorded What is the highest level of school you have completed or the highest degree you have received? Professional school degree (e.g., MD, DDS, DVM, EFREM) 07/16/2020 Sex and Gender Information Value Date Recorded Sex Assigned at Male 08/15/2021 10:21 AM COPYMAN Gender Identity Male 08/15/2021 10:21 AM COPYMAN Sexual Orientation Straight 08/15/2021 10 :21 AM COPYMAN documented as of this encounter Plan of Treatment Not on file documented as of this encounter Procedures Procedure Name Priority Date/Time Associated Diagnosis Comments OPHTHALMOLOGY IMAGE EXAM Routine 04/27/2023 3:00 PM CDT documented in this encounter Results * Generic Eye Procedure 200 R-Ophthalmology Image Exam (04/27/2023 3:00 PM CDT) 04/27/2023 3:00 PM CDT Narrative IIMS - 04/27/2023 3:23 PM CDT This order has been created and auto-finalized to support the import of images acquired without order. The clinical documentation to support these images can be found on the encounter that produced images. Provider Not In System IMG NON RAD IMAGI NG PROCEDURES IIMS NA documented in this encounter Visit Diagnoses Not on filedocumented in this encounter Care Teams Computer Programmer Relationship Specialty Start Date End Date Elsewhere, Pcp PCP - General Internal Medicine 04/13/23 documented as of this encounter
--- OUTSIDE RECORDS SUMMARY | 2023-09-27 16:38 | XMS_ITS | Encounter Summary ---
Author Name Unknown Organization [facility] Address [address] [place] [address] Care Team Providers Care Provider Relations Consultant Name Role Phone Elsewhere, Pcp Primary Care Provider Unavailabl e Reason for Visit * Outpatient (Routine) - Closed Specialty Diagnoses / Procedures Referred By Don t Referred To Contact Ophthalmology Diagnoses Vogt Koyanagi Syndrome Bilateral Procedures OPTICAL COHERENCE TOMOGRAPHY - MACULA/RETINA - OU - BOTH EYES OPH TEST OCT Sarah Dick M.D. [address] [place] [phone] Rst Oph [place] [address] [place] [phone] Referral ID Status Reason Start Date Expiration Date Visits Re quested Visits Authorized [id number] Closed 04/20/2020 04/27/2025 3 3 Encounter Details Date Type Department Care Team (Late st Contact Info) Description 04/27/2023 2:30 PM CDT Ancillary Procedure Department of Ophthalmology in [place], [place] [address] [place] [phone] Sarah Dick M.D. [address] [place] [phone] Social History Tobacco Use Types Packs/Day Years [...] week 08/15/2021 How often do you attend jew or presybeterian serv ices? Never 08/15/2021 Do you belong to any clubs o r organizations such as jew groups, unions, fraternal or athletic groups, or [...] and heating? Not hard at all 04/07/2023 [facility] Occupat ional Health - Occupational Stress [...] your living situation today? I have a [facility] place to live 04/07/2023 Education Answer Date Recorded What is the highest level of school you have completed or the highest degree you have received? Professional school degree (e.g., MD, DDS, DVM, EFREM) 07/16/2020 Sex and Gender Information Value Date Recorded Sex Assigned at Male 08/15/2021 10:21 AM BOX LOADER Gender Identity Male 08/15/2021 10:21 AM BOX LOADER Sexual Orientation Straight 08/15/2021 10 :21 AM BOX LOADER documented as of this encounter Plan of Treatment Not on file documented as of this encounter Procedures Procedure Name Priority Date/Time Associated Diagnosis Comments ANGIOGRAPHY - OU - BOTH EYES Routine 04/27/2023 3:12 PM CDT Vogt Koyanagi Syndrome Bilateral documented in this encounter Results * Fluorescein Angiography - OU - Both Eyes (04/27/2023 3:12 PM CDT) Narrative OPHTHALMOLOGY IMAGING EXAM - 05/11/2023 4:10 PM CDT Right Eye Dye used is fluorescein. Fluorescein dose given is normal. Field of view is ultra-wide view. Left Eye Dye used is fluorescein. Fluorescein dose given is normal. Field of view is ultra-wide view. Notes Optos fluorescein angiography The right eye has a circular area of hyperfluorescence superior to the optic nerve (appears to be a window defect). 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 There is no significant peripheral vascular leakage. No late disc or macular leakage. The left eye has punctate hyperfluorescent stippling in the superotemporal macula on earlier frames, but these areas do not leak on late frames. There are also small spots of hyperfluorescence in the superonasal and inferior periphery. No late disc or macular leakage. Sarah Dick M.D. OPHTH PHOTOGRAPHY OPHTHALMOLOGY IMAGING EXAM documented in this encounter Visit Diagnoses Not on filedocumented in this encounter Care Teams Provider Relations Consultant Relationship Specialty Start Date End Date Elsewhere, Pcp PCP - General Internal Medicine 04/13/23 documented as of this encounter
--- OUTSIDE RECORDS SUMMARY | 2023-09-27 16:38 | XMS_ITS | Encounter Summary ---
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 [address] [place] [address] [facility] Referral ID Status Reason Start Date Expiration Date Visits Re quested Visits Authorized [id number] Closed 04/20/2020 05/20/2035 1 1 Encounter Details Date Type Department Care Team (Latest Contact Info) Description 07/06/2023 9:00 AM CDT Office Visit Department of Ophthalmology in [place], [place] [address] [place] [address] Sarah Dick M.D. [address] [place] [id number] Vogt Koyanagi Syndrome Bilateral (Primary Dx); Membrane Macula Epiretinal Bilateral Social History Tobacco Use Types Packs/Day [...] week 08/15/2021 How often do you attend quaker or mandaeism serv ices? Never 08/15/2021 Do you belong to any clubs o r organizations such as quaker groups, unions, fraternal or athletic groups, or [...] and heating? Not hard at all 04/07/2023 [facility] - Occupational Stress Questionnaire Answer Date Recorded [...] your living situation today? I have a [facility] place to live 04/07/2023 Education Answer Date Recorded What is the highest level of school you have completed or the highest degree you have received? Professional school degree (e.g., MD, DDS, DVM, EFREM) 07/16/2020 Sex and Gender Information Value Date Recorded Sex Assigned at Male 08/15/2021 10:21 AM BIBLE READER Gender Identity Male 08/15/2021 10:21 AM BIBLE READER Sexual Orientation Straight 08/15/2021 10 :21 AM BIBLE READER documented as of this encounter Progress Notes * Sarah Dick M.D. 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 He is adopted, Mother is English, father of ancestry His symptoms started when he woke around 330am with the most painful headache he had ever had, centered just above his right eye. He thought he had injured his head in his sleep. Within 1-2 days, he noticed difficulty going from distance to near vision. (He wears contact lens with monovision.) Another day or so later, he noticed difficulty with distance vision. He had a regular appointment with [facility] eye doctor for a check up - called for an earlier appointment. Saw Dr. Shahid 2-3 days after that. He did not have any redness or light sensitivity at that time. 02/18/20 - block stacker Dr. Fifi Shahid at [facility] in [place]. He had had red eyes for 2-3 weeks prior to presentation with intermittent headache behind the eyes. He was diagnosed bilateral anterior uveitis and prescribed topical steroids and cycloplegic eye drops. She referred him to his PCP Dr. Rafaela Collins to assess for systemic disease. 02/18/20 - Dr. Collins. No synovitis present on exam. Ordered CBC/diff, ESR, CRP, LATRICIA, TSH, CCP, RF, CMP (all normal/negative except AST slightly elevated.) He was referred to stave machine tender Dr. Ledesma in [place]. On 02/19/20, he saw Dr. Ledesma who sent him directly to a retina specialist. He saw Dr. Zelaya on 02/19/20 after five days of headaches and worsening vision. Prior to the onset of vision changes, he had had a prodrome of flu-like symptoms followed by a severe headache and then vision changes. 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 He was admitted for IV steroids x 3 doses. His vision improved within 24 hours. Additional testing included blood cultures, syphilis, quantiferon, chest x-ray, Lyme screening, lysozyme, HLA-B27. After the three doses of IV steroids, he was put on high dose oral prednisone [address] Logan Zelaya on 02/26/20. VA 20/25 and 20/30. Both eyes had decreased disc edema and vitreous cell. The choroidal folds and macular serous fluid were also resolving. [place] Dr. Nancy Meeks - 02/28/20. He was on prednisone at 60 mg. Oral prednisone was tapered as follows: 03/04/20 40 mg x 1wk, then continued to decrease by [address] Zelaya on 03/25/20. VA 20/20 both eyes. He had run out of eye drops and developed bilateral red eyes and right sided headache. Anterior segment inflammation was resolved, decreased disc edema, rare vitreous cell, resolved subretinal fluid in both eyes. Oral prednisone had been tapered from 60mg to 20 mg daily. Decreased prednisolone drops to BID both eyes, recommended continued slow taper of oral prednisone. As soon as he decreased prednisone from 20 mg to 10 mg, he developed tinnitus and difficulty hearing. Initially he thought there was something wrong with the TV when his hearing changed, but then he switched to a different TV and realized that the problem was with his ears. Audiometry testing on 04/2020 showed low worse than high tone hearing loss bilaterally as well as cochlear sensitivity. He saw ENT specialist Dr. Garnica who recommended increasing PO prednisone to10-20 mg daily as well as evaluation with ENT and rheumatology at [place]. Subsequently, he did increase prednisone to 20mg x 2 wks, 15 mg x 2wks, then 10 mg. The tinnitus isresolved, he is not sure if the hearing loss has improved. The most recent telemedicine visit with Dr. Meeks was 05/22/20. PMH Gluten sensitivity, lactose intolerance. 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 # Posterior vitreous detachment, right eye # status post LASIK (2000) # Positive hepatitis B core antibody CLINICAL COURSE FIRST EVALUATION WITH [facility] - telemedicine due to [facility] quarantine - 07/06/20 His current ocular symptoms are significant light sensitivity. No headache, just occasional tenderness of the eyes. Just before he takes the daily dose of prednisone he has some lightheadedness. Current dose of prednisone is 10 mg daily. He has been on this dose for about four weeks. He is on prednisolone eye drops as needed. He was told that he could use them when his eyes feel dry - uses them occasionally. His most recent visit with Dr. Zelaya was in March 2020. He has an appointment scheduled on 07/15/20. VA 20/20 both eyes, IOPs 17 &19 Review of testin07/06/2020 B-Scan Both Eyes: moderate vitreous opacities, probable posterior vitreous detachment, retina appears attached, no thickening noted, no Tenon's accentuation. ZK Macula OCT: normal thickness, no subretinal fluid, choroid is not thickened. Trace epiretinal membrane. Optos fluorescein angiography: non specific minimal peripheral leakage, no significant late disc ormacular leakage. Optos fluorescein angiography: no hypofluorescent lesions. I cannot assess for anterior chamber or vitreous cell via webcam evaluation, but the testing and imaging suggests that the Wbsf-Umikwgrz-Yioysc syndrome uveitis is currently controlled. It sounds like he did not have recurrent/worsening uveitis activity during the steroid taper, but the hearing loss is concerning. If he has recurrent uveitis, it would not necessarily be as severe as his initial presentation, but there is a risk of cumulative retinal damage and loss of vision if he has multiple recurrences of inflammation. There is data in the literature suggesting that early initiation of systemic corticosteroid sparing medication improves outcomes in Opsl-Slkjgwzp-Lbkjrr syndrome uveitis by lowering the risk of developing chronic uveitis and/or sunset glow fundus. We discussed that systemic corticosteroid-sparing immunosuppressive medications take time to build up a therapeutic effect - usually at least 8 weeks. No medication works in all cases. Side effects vary depending on the medication and the individual - not everyone develops significant side effects.Since he did have extraocular inflammation when prednisone was tapered, I would consider starting systemic immunosuppressive medication now in order to completely taper off PO prednisone and to prevent recurrent inflammation. His is concerned about having three different doctors in three different locations. His is on a Facebook page for Wxkc-Zagmphug-Llhora syndrome - wondering which medication he should take. They would like to consolidate care here with specialists who have familiarity with Nusb-Sjjdvzsz-Lajprv syndrome. Therefore, I will refer him to rheumatology & ENT (preferably Dr. Horner) here. He should continue prednisone 10 mg daily for now until we know when he can see rheumatology to consider startingsystemic IMT. Once he has started systemic medication, then we can resume slow prednisone taper, (possibly 1 mg every 4 wks.) We often start with a conventional immunosuppressive medication like methotrexate, CellCept, or azathioprine. I would not use cyclosporine in his age group due to the risk of hypertension and renal side effects. Another option is a TNF inhibitor such as adalimumab - there are several papers in the literature reporting efficacy of adalimumab in Ufhx-Odbkljnd-Rdawom syndrome. Assuming there are no systemic contraindications, I would lean towards trying methotrexate or adalimumab. Assuming he will see rheumatology within the next month, I will plan to see him again in early September with repeat ALEJANDRA OCT. 09/07/20: Since last visit he has not seen Dr. Zelaya, (he did talk with him, but he opted to cancel the appointment.) He has not had any new visual symptoms or hearing loss. On days when he does a lot of reading, he will get a headache in the center of his head. If he rests his eyes for 10-15 minutes, the symptoms resolve. He still has light sensitivity - his office is very dark. His eyes do seem to adjust to bright outdoor conditions after a period of time however. He saw Dr. Ordaz on 07/16/20. Due to his low TPMT activity, she prescribed CellCept which he started 28 days ago. No side effects as far has he has noticed thus far. Current dose is 1000mg BID. Current dose of oral prednisone is still 10 mg daily. He is scheduled to see Dr. Ordaz in rheumatology later today. The ENT appointment has not been scheduled thus far, so we will check into this. 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 Dilated exam shows vitreous cell without significant haze. No obvious active choroidal lesions. Macula OCT is stable in the right eye - no significant thickening of the retina or choroid. The macular thickness is very slightly increased in the left eye, likely due to epiretinal membrane contraction. The choroid is not thickened. It is too soon for the full effect of CellCept since he started the medication four weeks ago and has just reached the target dose. We will restart prednisolone eye drops while we give CellCept more time. He should use prednisolone drops TID both eyes x 1 week, then BID until follow up. We cannot begin to taper PO prednisone yet since he has active inflammation. If there is still active anterior chamber inflammation at his next visit, we might need to increaseCellCept. If there is still inflammation after about four months on the target dose, then I would think about Humira unless the hepatitis B core antibody status is a contraindication. 10/16/20: A week ago, he ran out of CellCept for 4 days due to issues with the mail order pharmacy. Restarted last week on Monday (10/09/20). While he was off CellCept he had headaches and mild nausea. Symptoms resolved now that he is back on CellCept. (24 hours after restarting). Oral prednisone 10 mg daily. CellCept is 1000 mg BID (he had just reached this dose at least visit on 09/07/20 - almost 6 weeks ago) He is on prednisolone drops BID both eyes as directed. Overall, he feels that his vision is better. visual acuity with correction 20/25 (20/20) and 20/30 (20/20) intraocular pressure 18 both eyes by ICAre Exam shows resolution of the keratitic precipitates, and anterior chamber cell is decreased to 0.5+ Vitreous cell and dilated exam stable. No testing today as planned. We should be starting to see the full effect of the target dose. Since he still has low grade anterior chamber cell on prednisolone drops, I do not want to decreasePO prednisone or prednisolone drops yet. We could give the current dose of CellCept about two more months, or we could consider increasing the dose now to 1500 mg BID (assuming no contraindications; he is not having any adverse effects.) Ifwe do not increase the dose now, but he still has the same amount of anterior chamber cell and or worse inflammation at next visit, then we will definitely need to increase CellCept or make other systemic medication changes. He will see Dr. Ordaz next. I will let Mr. Lai and his discuss the possible CellCept dose increase with her. I am okay with either decision (increase now or wait.) 12/17/2020 Saw Rheum 10/16/2020, decided on continuing Cellcept at 1000mg BID. He had labs locally on 12/11/20. AST was slightly elevated, but still within the monitoring parameters. Next labs should be due in twomonths. Since then, he reports no significant changes in is vision. Notes some continues light sensitivity,but has been stable. He gets an occasional headache, but this usually occurs when he has been doinga lot of computer work. (The headache related to Llkd-Ssxbllvh-Qtkdau syndrome is different than previous tension headaches.) No tinnitus. Systemic medication: 10 mg oral prednisone 1000 mg BID CellCept (target dose since approximately 09/07/20) Eye drops: Prednisolone drops daily both eyes Denies any missed doses since last visit, denies infections or illnesses. Visual acuity with correction 20/20 and 20/25 (20/20) - improved in both eyes vs last visit. Intraocular pressure 15 right eye and 13 left eye by ICare Exam shows continued resolution of the keratitic precipitates, and very trace anterior chamber cell. Vitreous cell and dilated exam stable. Macula OCT scans today stable - there is a slight decrease in the thickness of the choroid comparedto 09/2020, definite decrease vs 07/2020. Start slow taper of oral prednisone: decrease to 7.5 mg daily Continue prednisolone acetate drops daily in both eyes If stable at the next visit, we might decrease PO prednisone to 5 mg daily vs decreasing to 6 mg, then decreasing by 1 mg thereafter If there is worsening anterior chamber or vitreous inflammation or increased headaches/hearing changes at next visit, then we would need to increase CellCept. Follow up in about 6 weeks on 02/04/21 10:15am VA, leti Hughes [facility] 02/04/21: Since last visit, he recieived COVID-19 vaccination. Reports a few headaches since last visit, but none severe - not worse than in the past. Some continued light sensitivity. (some headache related to exposure to bright sunlight or eye strain) He has tapered the oral prednisone to 7.5mg as instructed. He remains on 1000mg BID Cellcept. He reports no missed doses, illnesses/infections He had labs on Monday through [facility]. (results not visible in Epic; most recent labs from 01/01/21 are in Media) Systemic medication: 7.5 mg oral prednisone 1000 mg BID CellCept (target dose since approximately 09/07/20) Eye drops: Prednisolone drops daily both eyes Visual acuity with correction 20/30 (20/20) and 20/30 (20/25) - slightly decreased vs last visit Current glasses are at least three years old Intraocular pressure 27 right eye and 25 left eye by applanation before dilation Tonopen 23 both eyes after dilation Exam shows continued resolution of the keratitic precipitates, and very trace anterior chamber cell. Vitreous cell and dilated exam remain stable. Eyes remain quiet. Stop prednisolone drops in both eyes. Decrease PO prednisone to 6 mg daily, then continue to decrease by 1 mg on the first of each month. Okay to stop calcium and vitamin D supplements (he reports that he drinks a lot of milk) 03/18/2021: Reports good adherence to pred and MMF. He has been tapering pred and notes some mild general malaise as he decreases each month but overall this is tolerable. Headache is very infrequent,tends to correspond with a day with a lot of visual tasks (reading documents, computer work.) He has tapered the oral prednisone to 5mg as instructed. He remains on 1000mg BID Cellcept. Eye drops: None Corrected distance visual acuity was 20/20 -2 in the right eye and 20/20 -3 in the left eye. He did get new glasses since last visit Intraocular pressure was 17 in the right eye and 16 in the left eye using Icare. 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 Macula OCT shows no change in retinal thickness, no intra or subretinal fluid. The choroid thickness does not have noticeable increase. No need to increase PO prednisone, but do not taper any further for now. Restart prednisolone eye drops in both eyes: 2 times per day for 2 weeks, Then 1 time per day until next visit. Continue the current dose of prednisone (5 mg daily) for now. I will contact Dr. Ordaz about increasing CellCept to three tablets, twice a day. Follow up in about 2 months with repeat macula OCT (05/17 or 05/20 in AM). 05/17/2021: No significant vision changes but he has had trouble tolerating the increased dose of Cellcept, which was increased in March 2021. He gets abdominal pain and diarrhea. His next appointment with Dr. Ordaz is in a month. He did receive the COVID booster and held CellCept for 5 days afterward. He did not have symptoms after the first two shots, but he did have symptoms including a fever after the third one. He has not had vision changes, floaters, or headaches. He has an occasional headache, but it is usually after a long day spent looking at the computer and writing documents. He continues oral prednisone to 5mg as instructed. He is on 1500 mg BID Cellcept. (started 1000 mg bid 06/2020, increased 03/2021 to 1500 bid) Eye drops: prednisolone daily Corrected distance visual acuity was 20/20 +2 in the right eye and 20/20 +1 in the left eye. Intraocular pressure was 14 in the right eye and 13 in the left eye using Icare. Prior recurrent anterior chamber uveitis appears resolved Vitreous cell and dilated exam remain stable. Macula OCT shows no change in retinal thickness, no intra or subretinal fluid. The choroid thickness appears stable. He did not have symptoms on CellCept 1500 and 1000 mg, so he would like to try decreasing to that dose again. If he still has symptoms of severe stomach cramping on the reduced dose, he should decrease back to 1000 mg BID. Continue prednisolone drops daily both eyes. Decrease PO prednisone to 4 mg daily. If he has recurrent inflammation when we try to taper off PO prednisone, or he has steroid-induced ocular hypertension with prednisolone, then we might need to consider adding Humira; since he cannottake methotrexate due to the presence of hepatitis B antibodies. He is not very excited about an injected medication, so he would like to avoid this step for now. He has an appt with Dr. Ordaz in about a month, but he will need to move the appointment to early July (possibly telemedicine if Dr. Ordaz agrees.) 07/09/21 The GI side effects resolved when he decreased CellCept to the current dose. No changes in vision or floaters. Medications: Oral prednisone 4 mg as instructed. CellCept 1500 mg and 1000 mg (started 1000 mg bid 06/2020, increased 03/2021 to 1500 bid) Most recent labs were in late May (due every 2 months) He has an appointment with Dr. Ordaz on 08/19/21. Eye drops: prednisolone daily VA with correction 20/20 OU Applanation 19 OU No recurrent anterior chamber uveitis in either eye Minimal stable vitreous cell without haze Stable fundus exam. Macula OCT shows no change in retinal thickness, no intra or subretinal fluid. The right has a slight decrease in choroidal thickness in the inferior macula and a focal area of increased thickening in the superior macula. The choroid thickness is stable in the left eye. There is no increase in inflammation despite the slight decrease in CellCept and oral prednisone. We can continue to slowly decrease oral prednisone. Continue the current doses of CellCept and prednisolone drops as above. Decrease oral prednisone to 3 mg daily Follow up in about 2 months on 09/17/21 at 8:30 AM with repeat macula OCT 09/24/21 No changes in vision or floaters. No increase in headaches. Just had one bad headache since last visit - usually occurs after long day of reading on the computer. Medications: Oral prednisone 3 mg as instructed last visit on 07/09/21. CellCept 1500 mg and 1000 mg (started 1000 mg bid 06/2020, increased 03/2021 to 1500 bid bit did nottolerate this dose.) Most recent labs were in early September 2021. (due every 2 months) No missed doses or infections. He saw Dr. Ordaz on 08/19/21, no changes were made. He will follow up in 1 year. Eye drops: prednisolone daily both eyes VA with correction 20/20-1 right eye and 20/30-2 (pinhole to 20/20-1) left eye. Applanation 18 and 21 with Icare. 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 Macula OCT shows no change in retinal thickness, no intra or subretinal fluid. The choroid thickness is stable in both eyes. There is no increase in inflammation. We can continue to slowly decrease oral prednisone. Continue the current doses of CellCept and prednisolone drops as above. Decrease oral prednisone to 2 mg daily Follow up in about 2 months on 11/25/21 at 8:30 AM with repeat macula OCT 12/27/2021: No changes in vision or floaters. No increase in headaches. He feels like his eyes become tired at the end of the day from reading and work. He says he maybe has had 1-2 headaches usually later in the day after working very long hours. Most recent labs were in early September 2021. (due every 2 months) He knows that he is due for labs,and he has a letter to do them at home. No missed doses or infections. He saw Dr. Ordaz on 08/19/21, no changes were made. He will follow up in 1 year. He is planning to get the second COVID booster; he is aware that he should hold CellCept for 1-2 weeks after the shot. Oral prednisone 2 mg as instructed last visit on 09/2021 CellCept 1500 mg and 1000 mg prednisolone daily both eyes VA with correction 20/30 (PH 20/20) and 20/25 (PH 20/20-1). No recurrent anterior chamber uveitis in either eye Minimal stable vitreous cell without haze Macula OCT shows no change in retinal thickness, no intra or subretinal fluid. The choroid thickness is stable in both eyes. PLAN: There is no increase in inflammation. We can continue to slowly decrease oral prednisone. Continue the current doses of CellCept and prednisolone drops as above. Decrease oral prednisone to 1 mg daily x 2 months, then stop Follow up in 3-4 months in mid-April with repeat macula OCT 04/22/22 Since last visit he stopped oral prednisone as planned. He felt a little off for about ten days after stopping prednisone, but after that he was fine. He was on vacation in mid-March and did not have headaches during that time, so he thinks headaches correlate with too much screen time/work.He feels like his eyes have been more dry lately, but also correlates with computer work. He is having CellCept monitoring labs as planned (last month most recently). He will be due for follow up with Dr. Ordaz around August 2022. Systemic Medications: CellCept 1500 mg and 1000 mg Eye drops: prednisolone daily both eyes VA with correction 20/30 (PH 20/20) and 20/30 (PH 20/25). 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 Macula OCT shows no change in retinal thickness, no intra or subretinal fluid. The choroid thickness is stable in both eyes. There is no increase in inflammation. No need to restart oral prednisone. Continue the current doses of CellCept and prednisolone drops as above. If stable at next visit we might try stopping prednisolone drops although we would need to reassessa little sooner. In the meantime if he is noticing issues with vision, he might benefit from an updated glasses Rx. (Also artificial tears for blurring with computer work.) 08/12/22 On 07/06/22 he called regarding an episode of severe vertigo with vomiting (5-6 times). No fevers. He denies diarrhea (resident triage note reported diarrhea). He went to the ED, but they werebusy. He fell asleep in the car in the parking lot for an hour and a half. He felt better when he woke up - he was still seen in the ED. Had a CT scan and labs. His eye pressure was checked and was around 15-16. He was discharged, and he has not had any other similar issues. He has a new glasses prescription now. He is not sure when he last had labs. (Last note in the system is from March 2022) No changes in vision since last visit other than getting new glasses. He decided to stop doing monovision with a weaker contact lens in one eye. He felt like he was getting a lot of headaches doing that. This morning his eyes were very dry. Systemic Medications: CellCept 1500 mg and 1000 mg (started 1000 mg BID 06/2020, increased 03/2021 to 1500 BID but did nottolerate this dose.) Stopped oral prednisone as of early March 2022. Eye drops: prednisolone daily both eyes EXAM & IMAGING VA with correction 20/25 and 20/30 Intraocular pressure 18 and 18 with tonopen. 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 Macula OCT shows a few tiny intraretinal cysts just temporal to the fovea in the right eye, possibly related to traction from relatively thick epiretinal membrane. The left has no change in retinal thickness, no intra or subretinal fluid. The choroid thickness is stable in both eyes. PLAN There is no increase in inflammation. No need to restart oral prednisone. Continue the current doses of CellCept and prednisolone drops as above. He will get his monitoring labs done locally within the next week. He knows to hold CellCept for 7-10 days after getting the COVID bivalent booster. One month before next visit, stop prednisolone drops in both eyes. Use Bio True preservative free artificial tears for blurred vision and other dry eye symptoms. 11/28/22 He had monitoring labs done locally earlier this month- results scanned into document viewer. CBC was within normal limits with no neutropenia. He has a single new floater in the right eye which appeared a few weeks ago. No flashes, visual field cuts, or shower of hundreds or thousands of new floaters. He has a right-sided headache which is associated with some tenderness to palpation of the brow andperiorbital region which he mostly notices after a long day of reading or looking at a computer screen. No changes in vision since last visit. Systemic Medications: CellCept 1500 mg and 1000 mg (started 1000 mg BID 06/2020, increased 03/2021 to 1500 BID but did nottolerate this dose.) Eye drops: Off Prednisolone daily both eyes (stopped 1 month ago) VA with correction 20/25 and 20/30 iCare pressures 16 and 16 The left has just rare anterior chamber cell Minimal stable vitreous cell without haze The right has a new butler ring due to PVD from the optic nerve Macula OCT shows a few tiny intraretinal spaces just superior to the fovea in the right eye, likelyrelated to traction from relatively thick epiretinal membrane. The left has no change in retinal thickness, no intra or subretinal fluid (stable epiretinal membrane-related wrinkling). The choroid thickness is stable in both eyes. No recurrent/increased inflammation. 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 No need to restart prednisolone drops or PO prednisone. Continue the current doses of CellCept. He will be due for repeat monitoring labs in 2-3 months. 02/06/23 CellCept 1500 mg and 1000 mg VA with correction 20/25 and 20/20 The left has just rare anterior chamber cell Minimal stable vitreous cell without haze Macula OCT of the right eye shows a few more small intraretinal spaces just superior to the fovea in the right eye, likely related to traction from relatively thick epiretinal membrane. The left has no change in retinal thickness, no intra or subretinal fluid (stable epiretinal membrane-related wrin larry). The choroid thickness is stable in both eyes. The right eye has a few more intraretinal cysts just superior to the fovea, but vision is stable and there is no recurrent anterior chamber cell or increase in vitreous cell (actually slightly decreased since 11/2022). The OCT change in the right eye is most likely due to further changes epiretinal membrane traction.It is not visually significant so far. We discussed observation vs trying diclofenac or dorzolamidedrops. He opts for observation for now. No need to restart prednisolone drops or PO prednisone. Continue the current doses of CellCept. He is due for monitoring labs this month and has a follow up appt with Christofer England in April. He stopped PO prednisone nearly a year ago in March 2022. If exam, angiography, and OCT are stable at next visit with me in late April, we could consider decreasing CellCept slightly to 1000 mg BID. 04/27/23 Systemic Medications: CellCept 1500 mg and 1000 mg (started 1000 mg BID 06/2020, increased 03/2021 to 1500 BID but did nottolerate this dose.) VA with correction 20/40 (PH 20/25) and 20/25 (PH 20/20) Stable exam Macula OCT of the right eye shows stable small intraretinal spaces just superior to the fovea in the right eye, likely related to traction from relatively thick epiretinal membrane. The left has interim contraction of epiretinal membrane that causes an intraretinal cyst in the fovea. The choroid thickness is stable in both eyes. Fluorescein angiography shows no significant inflammation in either eye. PLAN: The right eye has stable intraretinal cysts just superior to the fovea, likely due to epiretinal membrane. The left now has interim contraction of epiretinal membrane in the fovea that is causing an intraretinal cyst as well. No evidence of active inflammation otherwise on exam, OCT, or fluorescein angiography. Okay to decrease CellCept to 1000 mg BID. No need to restart prednisolone drops or PO prednisone. Today - 07/06/23 No significant changes since last visit. Patient notes that he had a little bit of vertigo for 2-3 days after lowering the dose of CellCept, but has been asymptomatic since. He notes no new changes or symptoms otherwise. Systemic Medications: CellCept to 1000 mg BID since 04/2023 (started 1000 mg BID 06/2020, increased 03/2021 to 1500 BID butdid not tolerate this dose.) Stopped oral prednisone as of early March 2022. Eye drops: Artificial tears PRN EXAM & IMAGING VA with correction 20/20 and 20/20 iCare pressures 10 and 12 Stable exam Macula OCT of the right eye shows stable small intraretinal spaces just superior to the fovea in the right eye, likely related to traction from relatively thick epiretinal membrane. The left has stable contracted epiretinal membrane that causes an intraretinal cyst in the fovea. The choroid thickness might be slightly increased in both eyes. PLAN No evidence of active inflammation on exam. Minimal change in the choroid on OCT. No recurrent headache or hearing changes. Continue CellCept 1000 mg BID. He knows to get his labs this month. No need to restart prednisolone drops or PO prednisone. If stable next visit, we might consider decreasing CellCept again. Next time we do angiography, get ICG as well. Previously discussed using Bio True preservative free artificial tears for blurred vision and otherdry eye symptoms. He knows to call if he has any vision changes or recurrent headache. Follow up in 3 months - 09/28/23 8:30 am with repeat macula OCT Local PCP: Dr. Rafaela Collins Ophth: Dr. Zelaya Rheum: Dr. Nancy Meeks (in [facility]) now Dr. Ordaz ENT Dr. 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
--- OUTSIDE RECORDS SUMMARY | 2023-09-27 16:38 | XMS_ITS | Encounter Summary ---
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 [address] [place] [address] [facility] Referral ID Status Reason Start Date Expiration Date Visits Re quested Visits Authorized [id number] Closed 04/20/2020 05/20/2035 1 1 Reason for Visit * Outpatient (Routine) - Closed Specialty Diagnoses / Procedures Referred By Don hall Referred To Contact Ophthalmology Diagnoses Vogt Koyanagi Syndrome Bilateral Va, iCare, dilate, OCT, Optos fluorescein angiography, WMS Procedures OPH EST UVEITIS Sarah Dick M.D. [address] [place] [address] Sarah Dick M.D. [address] [place] [address] Referral ID Status Reason Start Date Expiration Date Visits Re quested Visits Authorized [id number] Closed 04/20/2020 05/20/2035 1 1 Encounter Details Date Type Department Care Team (Latest Contact Info) Description 04/27/2023 3:00 PM CDT Office Visit Department of Ophthalmology in [place], [place] [address] [place] [address] Sarah Dick M.D. [address] [place] [address] Vogt Koyanagi Syndrome Bilateral (Primary Dx); Membrane [...] week 08/15/2021 How often do you attend islam or yazdanism serv ices? Never 08/15/2021 Do you belong to any clubs o r organizations such as islam groups, unions, fraternal or athletic groups, or [...] and heating? Not hard at all 04/07/2023 [facility] [place] of Occupat ional Health - Occupational Stress [...] Date Recorded Dental: Regular Dentist Yes 09/04/19 23 Employment Answer Date Recorded Employment status Employed [...] Sex Assigned at Male 08/15/2021 10:21 AM INSTITUTIONAL RESEARCH DIRECTOR Gender Identity Male 08/15/2021 10:21 AM INSTITUTIONAL RESEARCH DIRECTOR Sexual Orientation Straight 08/15/2021 10 :21 AM INSTITUTIONAL RESEARCH DIRECTOR documented as of this encounter Progress Notes * Sarah Dick M.D. 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 He is adopted, Mother is Amharic, father of ancestry His symptoms started when [...] vision. He had a regular appointment with [facility] eye doctor for a check up - called for an earlier appointment. Saw Dr. Shahid 2-3 days after that. He did not have any redness or light sensitivity at that time. 02/18/20 - social work lecturer Dr. Fifi Shahid at [facility] in [place]. He had had red eyes for 2-3 [...] AST slightly elevated.) He was referred to ironer sock Dr. Ledesma in [place]. On 02/19/20, he saw Dr. Ledesma who [...] folds. 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 He was admitted for [...] and macular serous fluid were also resolving. Account Classification Clerk Dr. Nancy Meeks - 02/28/20. He was [...] as evaluation with ENT and rheumatology at [place]. Subsequently, he did increase prednisone to 20mg x 2 wks, 15 mg x 2wks, then 10 mg. The tinnitus isresolved, he is not sure if the hearing loss has improved. The most recent telemedicine visit with Dr. Meeks was 05/22/20. PMH Gluten sensitivity, lactose intolerance. 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 It sounds [...] systemic corticosteroid sparing medication improves outcomes in Zbjl-Gnrclorc-Oyezkt syndrome uveitis by lowering the risk of [...] His is on a Facebook page for Wqcn-Nvacjmyc-Sdrnoq syndrome - wondering which medication he should take. They would like to consolidate care here with specialists who have familiarity with Tdcj-Kjoyhhyg-Vclszz syndrome. Therefore, I will refer him to [...] the literature reporting efficacy of adalimumab in Lahh-Cuxceeif-Vaxwbb syndrome. 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 (The headache related to Zgnk-Smcmxhxx-Opfcvh syndrome is different than previous tension headaches.) [...] about 6 weeks on 02/04/21 10:15am VA, iCare, leti, WMS 02/04/21: Since last visit, he recieived [...] illnesses/infections He had labs on Monday through [facility]. (results not visible in Epic; most [...] decreasing CellCept slightly to 1000 mg BID. TODAY - 04/27/23 No significant changes since last visit. He saw Christofer England earlier this month as planned. Labs have been stable. Systemic Medications: CellCept 1500 mg and 1000 mg (started 1000 mg BID 06/2020, increased 03/2021 to 1500 BID but did nottolerate this dose.) Stopped oral prednisone as of early March 2022. Eye drops: Off Prednisolone daily both eyes (stopped 1 month ago) Artificial tears PRN EXAM & IMAGING VA with correction 20/40 (PH 20/25) and 20/25 (PH 20/20) iCare pressures 10 and 10 Stable exam Macula OCT of the right [...] shows no significant inflammation in either eye. PLAN The right eye has stable intraretinal cysts just superior to the fovea, likely due to epiretinal membrane. The left now has interim contraction of epiretinal membrane in the fovea that is causing an intraretinal cyst as well. No evidence of active inflammation otherwise on exam, OCT, or fluoresceinangiography. Okay to decrease CellCept to 1000 mg BID. No need to restart prednisolone drops or PO prednisone. Previously discussed using Bio True preservative free artificial tears for blurred vision and otherdry eye symptoms. His current glasses are about 1.5 years old. Discussed that if he is bothered by his distance vision, he would probably benefit from an updated prescription. He knows to call if he has any vision changes or recurrent headache. Follow up in July 2023 (07/06/23 in AM) with repeat macula OCT Local PCP: Dr. Rafaela Collins Ophth: Dr. Zelaya Rheum: Dr. Nancy Meeks (in [facility]) now Dr. Ordaz ENT Dr. 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 OCT device used was Spectralis . Scan locations included macula. Findings include epiretinal membrane. Central macular thickness 291 um. Left Eye Reliability was good. OCT device used was Spectralis . Scan locations included macula. Findings include epiretinal membrane. Central macular thickness 387 um. Notes LDC RIGHT - normal macular thickness except relative thickening in nasal paramacular region - stable vs previous. intact foveal depression and retinal layers except the interdigitation zone might be less robust than normal. There are a few intraretinal cysts perifoveal and just superior to the fovea - possibly related to epiretinal membrane which is relatively thick. No subretinal fluid. The choroid is not thickened - compared to 04/2023, there might be a very slight increase in thickness, however; the previous focal area of increased thickening in the superior macula has not recurred. Posterior hyaloid is attached. LEFT - stable irregular thickening in central macula due to epiretinal membrane contraction - cyst in the fovea as well. intact foveal depression and retinal layers except the interdigitation zone might be less robust than normal. No subretinal fluid. The choroid is not thickened, but it might be very slightly thicker vs 04/2023. Sarah Dick M.D. 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
--- OUTSIDE RECORDS SUMMARY | 2023-09-27 16:38 | XMS_ITS ---
Author Name Unknown Organization [facility] Address [address] [place] [address] Care Team Providers Care Forecast Analyst Name Role Phone Unavailable Unavailable Unavailable Surgery Details Not on file Complications Check Surgery Details section. Procedure Estimated Blood Loss Check Surgery Details section. Procedure Findings Check Surgery Details section. Procedure Specimens Taken Check Surgery Details section.
--- OUTSIDE RECORDS SUMMARY | 2023-09-27 16:38 | XMS_ITS | Encounter Summary ---
Author Name Unknown Organization [facility] Address [address] [place] [address] Care Team Providers Care Product Safety Officer Name Role Phone Elsewhere, Pcp Primary Care Provider Unavailabl e Encounter Details Date Type Department Care Team (Latest Contact Info) Description 07/06/2023 8:10 AM CDT Ancillary Procedure Department of Ophthalmology in [place], [place] [address] [place] [address] Sarah Dick M.D. [address] [place] [phone] Vogt Koyanagi Syndrome Bilateral; Membrane Macula Epiretinal Bilateral Social History Tobacco [...] week 08/15/2021 How often do you attend sabianism or synagogue serv ices? Never 08/15/2021 Do you belong to any clubs o r organizations such as sabianism groups, unions, fraternal or athletic groups, or [...] and heating? Not hard at all 04/07/2023 [facility]ational Stress Questionnaire Answer Date [...] your living situation today? I have a [facility] place to live 04/07/2023 Education Answer Date Recorded What is the highest level of school you have completed or the highest degree you have received? 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
--- OUTSIDE RECORDS SUMMARY | 2023-09-27 16:38 | XMS_ITS | Encounter Summary ---
Author Name Unknown Organization [facility] Address [address] [place] [address] Care Team Providers Care Plush Cutter Name Role Phone Elsewhere, Pcp Primary Care Provider Unavailabl e Encounter Details Date Type Department Care Team (Late st Contact Info) Description 07/06/2023 Ancillary Procedure Department of Ophthalmology Social History [...] week 08/15/2021 How often do you attend mormon or denominational serv ices? Never 08/15/2021 Do you belong to any clubs o r organizations such as mormon groups, unions, fraternal or athletic groups, or [...] and heating? Not hard at all 04/07/2023 [facility] of Occupat ional Health - Occupational Stress [...] Sex Assigned at Male 08/15/2021 10:21 AM RAILROAD SWITCHMAN Gender Identity Male 08/15/2021 10:21 AM RAILROAD SWITCHMAN Sexual Orientation Straight 08/15/2021 10 :21 AM RAILROAD SWITCHMAN documented as of this encounter Plan of Treatment Not on file documented as of this encounter Procedures Procedure Name Priority Date/Time Associated Diagnosis Comments OPHTHALMOLOGY IMAGE EXAM Routine 07/06/2023 12:00 AM CDT documented in this encounter Results * Eyes Spectralis OCT-Ophthalmology Image Exam (07/06/2023 12:00 AM CDT) Narrative IIMS - 07/06/2023 9:55 AM CDT This order has been created and auto-finalized to support the import of images acquired without order. The clinical documentation to support these images can be found on the encounter that produced images. Provider Not In System IMG NON RAD IMAGI NG PROCEDURES IIMS NA documented in this encounter Visit Diagnoses Not on filedocumented in this encounter Care Teams Plush Cutter Relationship Specialty Start Date End Date Elsewhere, Pcp PCP - General Internal Medicine 04/13/23 documented as of this encounter
--- OUTSIDE RECORDS SUMMARY | 2023-09-27 16:38 | XMS_ITS | Clinical Summary ---
Author Name Unknown Organization [facility] Address [address] [place] [address] Care Team Providers Care Cylinder Grinder Name Role Phone Elsewhere, Pcp Primary Care Provider Unavailabl e Source Comments Patient records contain information from all sites at [facility]. For routine questions regarding patient records, call [phone] during business hours, M-F 8:00 AM - 5:00 PM Central Time. Record requests for emergency care only can be directed to [phone] at any time.[facility] Allergies Active Allergy Reactions Criticality Noted Date Comments Gluten Diarrhea,GI intolerance High 04/09/2020 Lactose Diarrhea,GI intolerance High 04/09/2020 Medications Medication Sig Dispensed Refills Start Date End Date Status mycophenolate (CELLCEPT) 500 mg tabletIndications:Vo gt Koyanagi Syndrome Bilateral Take 2 tablets (1,000 mg total) by mouth 2 (two) times a day. 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 Vogt Koyanagi Syndrome Bilateral (Primary Dx); Membrane Macula Epiretinal Bilateral 07/06/2023 8:10 AM CDT Ancillary Procedure Department of Ophthalmology in [place], [place] [address] [place] [address] Sarah Dick M.D. Vogt Koyanagi Syndrome Bilateral; Membrane Macula Epiretinal Bilateral 07/06/2023 Ancillary Procedure Department of Ophthalmology from Last 3 Months Immunizations Name Administration Dates Next Due Td (Adult), adsorbed 03/26/2004 Family History * Patient is adopted Medical History Relation Name Comments No Known Problems Brother Pancreatic cancer Father Edis Lindo No Known Problems Father's Brother No Known Problems Father's Sister No Known Problems Maternal Grandfather No Known Problems Maternal Grandmother No Known Problems Mother No Known Problems Mother's Brother No Known Problems Mother's Sister No Known Problems Other No Known Problems Paternal Grandfather No Known Problems Paternal Grandmother No Known Problems Sister Relation Name Status Comments Brother Father dEis Lindo Father's Brother Father's Sister Maternal Grandfather Maternal Grandmother Mother Mother's Brother Mother's Sister Other Paternal Grandfather Paternal Grandmother Sister Social History Tobacco Use Types Packs/Day Years Used Date Smoking Tobacco: Passive Smo ke Exposure - Never Smoker Passive Smoke Exposure: Yes Smokeless Tobacco: Former Chew Quit: 10/01/1988 Tobacco Cessation:Counseling Given: Not Answered Alcohol Use Standard Drinks/Week Comments Yes 4 [...] week 08/15/2021 How often do you attend mandaeism or sabianism serv ices? Never 08/15/2021 Do you belong to any clubs o r organizations such as mandaeism groups, unions, fraternal or athletic groups, or [...] and heating? Not hard at all 04/07/2023 [facility] of Occupat ional Health - Occupational Stress [...] your living situation today? I have a [facility] place to live 04/07/2023 Education Answer Date Recorded What is the highest level of school you have completed or the highest degree you have received? Professional school degree (e.g., MD, DDS, DVM, EFREM) 07/16/2020 Sex and Gender Information Value Date Recorded Sex Assigned at Male 08/15/2021 10:21 AM LADIES UNDERWEAR OPERATOR Gender Identity Male 08/15/2021 10:21 AM LADIES UNDERWEAR OPERATOR Sexual Orientation Straight 08/15/2021 10 :21 AM LADIES UNDERWEAR OPERATOR Last Filed Vital Signs Vital Sign Reading Time Taken Comments Blood Pressure 125/75 04/14/2023 9:34 AM CDT Pulse 61 04/14/2023 9:34 AM CDT Temperature 36 ??C (96.8 ??F) 04/14/2023 9:34 AM CDT Respiratory Rate - - Oxygen Saturation - - Inhaled Oxygen Concentration - - Weight 102 kg (224 lb 3.3 oz) 04/14/2023 9:34 AM CDT Height 179.5 cm (5' 10.67) 04/14/2023 9:34 AM C DT Body Mass Index 31.56 04/14/2023 9:34 AM CDT Plan of Treatment Health Maintenance Due Date Last Done Comments CT Colonography 1965 Cologuard 1965 Colonoscopy 1965 Colorectal Cancer Screening 1965 FIT 1965 HIV Screening 1965 Lipid (Cholesterol) Screening 1965 Pneumococcal vaccine (0-64 years) (1 of 2 - PCV) 1971 Hepatitis B Vaccines (2 of 3 - Hep B Twinrix 3-dose series) 09/04/2014 08/07/2014 Fasting Glucose for Diabetes Screening 02/18/2023 02/19/2020 Depression Screening (Annual PHQ-2) 09/04/2023 DTaP,Tdap,and Td Vaccines (2 - Td or Tdap) 08/07/2024 08/07/2014, 03/26/2004 Zoster Vaccines Completed 09/10/2021, 07/11/2021 COVID-19 Vaccine Completed 09/06/2023, , 04/21/2021, Additional history exists Influenza Vaccine Completed 09/06/2023, , 07/11/2021, Additional history exists HPV Vaccines Aged Out No longer eligi ble based on patient's age to complete this topic Procedures Procedure Name Priority Date/Time Associated Diagnosis Comments OPTICAL COHERENCE TOMOGRAPHY - MACULA/RETINA - OU - BOTH EYES Routine 07/06/2023 8:09 AM CDT 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 OCT device [...] vs 04/2023. Sarah Dick M.D. OPHTH TOMOGRAPHY Performing Organization Address [facility] Co de Phone Number OPHTHALMOLOGY IMAGING EXAM * Eyes Spectralis OCT-Ophthalmology Image Exam (07/06/2023 12:00 AM CDT) Narrative [facility] - 07/06/2023 9:55 AM CDT This order has been created and auto-finalized to support the import of images acquired without order. The clinical documentation to support these images can be found on the encounter that produced images. Provider Not In System IMG NON RAD IMAGI NG PROCEDURES Performing Organization Address [facility] Co de Phone Number [facility]S NA from Last 3 Months Care Teams Cylinder Grinder Relationship Specialty Start Date End Date Elsewhere, Pcp PCP - General Internal Medicine 04/13/23
--- OUTSIDE RECORDS SUMMARY | 2023-09-27 16:38 | XMS_ITS | Encounter Summary ---
Author Name Unknown Organization [facility] Address [address] [place] [address] Care Team Providers Care Peoplesoft Business Analyst Name Role Phone Elsewhere, Pcp Primary Care Provider Unavailabl e Encounter Details Date Type Department Care Team (Late st Contact Info) Description 04/27/2023 Ancillary Procedure Department of Ophthalmology Social History [...] week 08/15/2021 How often do you attend cheondoism or restorationism serv ices? Never 08/15/2021 Do you belong to any clubs o r organizations such as cheondoism groups, unions, fraternal or athletic groups, or [...] and heating? Not hard at all 04/07/2023 [facility] of Occupat ional Health - Occupational Stress [...] Sex Assigned at Male 08/15/2021 10:21 AM AUTOMATIC PROFILE SHAPER OPERATOR Gender Identity Male 08/15/2021 10:21 AM AUTOMATIC PROFILE SHAPER OPERATOR Sexual Orientation Straight 08/15/2021 10 :21 AM AUTOMATIC PROFILE SHAPER OPERATOR documented as of this encounter Plan of Treatment Not on file documented as of this encounter Procedures Procedure Name Priority Date/Time Associated Diagnosis Comments OPHTHALMOLOGY IMAGE EXAM Routine 04/27/2023 12:00 AM CDT documented in this encounter Results * Eyes Spectralis OCT-Ophthalmology Image Exam (04/27/2023 12:00 AM CDT) Narrative [facility] - 04/27/2023 3:38 PM CDT This order has been created and auto-finalized to support the import of images acquired without order. The clinical documentation to support these images can be found on the encounter that produced images. Provider Not In System IMG NON RAD IMAGI NG PROCEDURES IIME NA documented in this encounter Visit Diagnoses Not on filedocumented in this encounter Care Teams Peoplesoft Business Analyst Relationship Specialty Start Date End Date Elsewhere, Pcp PCP - General Internal Medicine 04/13/23 documented as of this encounter
--- OUTSIDE RECORDS SUMMARY | 2023-09-27 16:38 | XMS_ITS | Referral Summary ---
Author Name Unknown Organization [facility] Address [address] [place] [address] Care Team Providers Care Biofuels Product Manager Name Role Phone Elsewhere, Pcp Primary Care Provider Unavailabl e Source Comments Patient records contain information from all sites at [facility]. For routine questions regarding patient records, call [phone] during business hours, M-F 8:00 AM - 5:00 PM Central Time. Record requests for emergency care only can be directed to [phone] at any time.[facility] Encounters Date Type Department Care Team Description 07/06/2023 Ancillary Procedure Department of Ophthalmology 07/06/2023 9:00 AM CDT Office Visit Department of Ophthalmology in [place], [place] [address] [place] [address] Sarah Dick M.D. Vogt Koyanagi Syndrome Bilateral (Primary Dx); Membrane Macula Epiretinal Bilateral 07/06/2023 8:10 AM CDT Ancillary Procedure Department of Ophthalmology in [place], [place] [address] [place] [address] Sarah Dick M.D. 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 Never 08/15/2021 Do you belong to any clubs o r organizations such as baptism groups, unions, fraternal or athletic groups, or [...] and heating? Not hard at all 04/07/2023 [facility] of Occupat ional Health - Occupational [...] Sex Assigned at Male 08/15/2021 10:21 AM JEWELRY COATER Gender Identity Male 08/15/2021 10:21 AM JEWELRY COATER Sexual Orientation Straight 08/15/2021 10 :21 AM JEWELRY COATER Last Filed Vital Signs Vital Sign Reading [...] 04/14/2023 9:34 AM CDT Plan of Treatment Not on file Procedures Procedure Name Priority Date/Time Associated Diagnosis [...] OPHTHALMOLOGY IMAGING EXAM - 07/12/2023 10:57 AM JEWELRY COATER Right Eye Reliability was good. OCT device [...] Dick M.D. OPHTH TOMOGRAPHY Performing Organization Address [facility] de Phone Number OPHTHALMOLOGY IMAGING EXAM * [...] RAD IMAGI NG PROCEDURES Performing Organization Address [facility] Co de Phone Number IIMS NA from Last 3 Months Care Teams Biofuels Product Manager Relationship Specialty Start Date End Date Elsewhere, Pcp PCP - General Internal Medicine 04/13/23
--- OUTSIDE RECORDS SUMMARY | 2023-09-27 16:39 | XMS_ITS | Encounter Summary ---
Author Name Unknown Organization [facility] Address [address] [place] [address] Care Team Providers Care Assessment Consultant Name Role Phone Unavailable Primary Care Provider Unavailabl e Encounter Details Date Type Department Care Team (Late st Contact Info) Description 01/19/2023 Clinical Communication Division of Rheumatology in [place], [place] [address] [place] [address] Christofer England, MERCHANDISING CONSULTANT, C.N.P. [address] [place] [address] Social History Tobacco Use Types Packs/Day Years Used Date Smoking Tobacco: Passive Smo ke Exposure - Never Smoker Smokeless Tobacco: Former Chew Quit: 10/01/1988 Alcohol Use Standard Drinks/Week Comments Yes 4 (1 standard drink = 0.6 oz pur e alcohol) Humiliation, Afraid, Rape, and Kick questionnair e Answer Date Recorded Within the last year, have y ou been afraid of your partner or ex-partner? No 02/01/2023 Within the last year, have y ou been humiliated or emotionally abused in other ways by your partner or ex-partner? No Within the last year, have y ou been kicked, hit, slapped, or otherwise physically hurt by your partner or ex-partner? No 02/01/2023 Within the last year, have y ou been raped or forced to have any kind of sexual activity by your partner or ex-partner? No 02/01/2023 Social Connection and Isolation Panel [NHANES] A nswer Date Recorded In a typical week, how many times do you talk on the phone with family, friends, or neighbors? Never 08/15/2021 How often do you get together with friends or re latives? Once a week 08/15/2021 How often do you attend nondenominational or congregation serv ices? Never 08/15/2021 Do you belong to any clubs o r organizations such as nondenominational groups, unions, fraternal or athletic groups, or [...] care, and heating? Not hard at all 02/01/2023 [facility] of Occupat ional Health - Occupational Stress [...] the money to buy more. Never true 02/02/20 23 Within the past 12 months, t he food you bought just didn't last and you didn't have money to get more. Never true 02/01/2023 PRAPARE - Transportation Answer Date Re corded In the past 12 months, has l ack of transportation kept you from medical appointments or from getting medications? No 01/04 In the past 12 months, has l ack of transportation kept you from meetings, work, or from getting things needed for daily living? No 02/01/2023 Nutrition Answer Date Recorded Nutrition: EVOO Fat [...] your living situation today? [facility] have a [facility] place to live 02/01/2023 Education Answer Date Recorded What is the highest level of school you have completed or the highest degree you have received? Professional school degree (e.g., MD, DDS, DVM, EFREM) 07/16/2020 Sex and Gender Information Value Date Recorded Sex Assigned at Male 08/15/2021 10:21 AM INTELLIGENCE INTERN Gender Identity Male 08/15/2021 10:21 AM INTELLIGENCE INTERN Sexual Orientation Straight 08/15/2021 10 :21 AM INTELLIGENCE INTERN documented as of this encounter Miscellaneous Notes * Telephone Encounter - Antione Ordaz M.D. - 01/25/2023 5:20 PM CDT The labs I check with him are CBC, AST and he has a positive Hep B core antibody on CellCept so I will check an HBV DNA periodically. Last one was done in 2020. Thank you for seeing him. documented in this encounter Plan of Treatment Not on file documented as of this encounter Results * HBV DNA Detect/Quant, Serum (04/14/2023 8:36 AM CDT) HBV DNA Detect/Quant, S Undetected Undetected IU/mL 04/15/2023 1:34 PM CDT [facility] Comment: Result in log IU/mL is Undetected. ----ADDITIONAL INFORMATION---- The quantification range of this assay is 10 to 1,000,000,000 IU/mL (1.00 log to 9.00 log IU/mL). Testing was performed using the devaughn HBV test ([employer] with the devaughn 6800 System. Blood (Blood, Venous) 04/14/2023 8:36 AM CDT 04/14/2023 11:49 AM CDT Dany Kimble APRNNRobinPRobin LAB MICROBIO LOGY - BLOOD ORDERABLES Performing Organization Address City/[facility]/ZIP Co de Phone Number [facility] [address] [place] [address] [facility] [address] [place] [address] [place] [address] * Creatinine with Estimated GFR (04/14/2023 8:36 AM CDT) Creatinine 1.02 0.74 - 1.35 mg/dL 04/14/2023 9:30 AM CDT DTL Estimated GFR (eGFR) 86 >=60 mL/min/BSA 04/14/2023 9:30 AM CDT DT Comment: Estimated GFR calculated using the 2020 CKD_EPI creatinine equation. Blood (Blood, Venous) 04/14/2023 8:36 AM CDT 04/14/2023 9:14 AM CDT Dany Kimble APRNN.P. LAB BLOOD AD D-ON Performing Organization Address City/[facility]/ZIP Co de Phone Number [facility] [address] [place] [address], [facility] DTL [facility] [address] [place] [address] * AST (Aspartate Aminotransferase) (04/14/2023 8:36 AM CDT) Aspartate Aminotransferase (AST), S 29 8 - 48 U/L 04/14/2023 9:30 AM CDT DTL Blood (Blood, Venous) 04/14/2023 8:36 AM CDT 04/14/2023 9:14 AM CDT Christofer England APRN, C.N.P. LAB BLOOD AD D-ON [facility] [address] [place] [address], [facility] DTL [facility] [address] [place] [address] * CBC with Differential, Blood (04/14/2023 8:36 AM CDT) Hemoglobin 14.8 13.2 - 16.6 g/dL 04/14/2023 9:07 AM CDT DTL Hematocrit 45.5 38.3 - 48.6 % 04/14/2023 9:07 AM CDT DTL Erythrocytes 4.75 4.35 - 5.65 x10(12)/L 04/14/2023 9:07 AM CDT DTL MCV 95.8 78.2 - 97.9 fL 04/14/2023 9:07 AM CDT DTL RBC Distrib Width 12.5 11.8 - 14.5 % 04/14/2023 9:07 AM CDT DTL Platelet Count 258 135 - 317 x10(9)/L 04/14/2023 9:07 AM CDT DTL Leukocytes 6.0 3.4 - 9.6 x10(9)/L 04/14/2023 9:07 AM CDT DTL Neutrophils 2.68 1.56 - 6.45 x10(9)/L 04/14/2023 9:07 AM CDT DHPM Lymphocytes 2.59 0.95 - 3.07 x10(9)/L 04/14/2023 9:07 AM CDT DTL Monocytes 0.48 0.26 - 0.81 x10(9)/L 04/14/2023 9:07 AM CDT DTL Eosinophils 0.21 0.03 - 0.48 x10(9)/L 04/14/2023 9:07 AM CDT DTL Basophils 0.03 0.01 - 0.08 x10(9)/L 04/14/2023 9:07 AM CDT DTL Blood (Blood, Venous) 04/14/2023 8:36 AM CDT 04/14/2023 8:59 AM CDT Christofer England APRN, C.N.P. LAB BLOOD AD D-ON [facility] [address] [place] [address], [facility] DTL [facility] [address] [place] [address] documented in this encounter Visit Diagnoses Diagnosis Vogt Koyanagi Syndrome Bilateral- Primary documented in this encounter
--- OUTSIDE RECORDS SUMMARY | 2023-09-27 16:39 | XMS_ITS | Encounter Summary ---
Author Name Unknown Organization [facility] Address [address] [place] [address] Care Team Providers Care Union Organiser Name Role Phone Unavailable Primary Care Provider Unavailabl e Reason for Visit * Reason Comments Med Refill Encounter Details Date Type Department Care Team (Late st Contact Info) Description 04/07/2023 Refill Division of Rheumatology in [place], [place] [address] [place] [address] Antione Ordaz M.D. [address] [place] [phone] Med Refill Social History Tobacco Use Types Packs/Day Years [...] week 08/15/2021 How often do you attend taoism or bahai serv ices? Never 08/15/2021 Do you belong to any clubs o r organizations such as taoism groups, unions, fraternal or athletic groups, or [...] heating? Not hard at all 04/07/2023 [facility] of Occupat ional Health - Occupational [...] your living situation today? I have a [facility] place to live 04/07/2023 Education Answer Date Recorded What is the highest level of school you have completed or the highest degree you have received? Professional school degree (e.g., MD, DDS, DVM, EFREM) 07/16/2020 Sex and Gender Information Value Date Recorded Sex Assigned at Male 08/15/2021 10:21 AM RECREATIONAL COUNSELOR Gender Identity Male 08/15/2021 10:21 AM RECREATIONAL COUNSELOR Sexual Orientation Straight 08/15/2021 10 :21 AM RECREATIONAL COUNSELOR documented as of this encounter Miscellaneous Notes * Telephone Encounter - Milagro Rodriguez, R.N. - 04/10/2023 10:37 AM CDT Prescription renewal request for mycophenolate mofetil (Cellcept) received from pharmacy. HISTORY OF PRESENT ILLNESS Last Rheum visit: 08/19/2021with Antione Ordaz MD Future office visit: 04/14/2023 with Christofer England CNP Last monitoring labs/eye exam: 03/29/2023 : within protocol parameters. Prescription request matches current plan of care. Prescription request matches a current prescription in the Medication List. Exclusion criteria: None ASSESSMENT/PLAN Prescription request Scheduled to see provider on 04/14/2023. Patient has been given 90 day refill in past on 12/09/2022 with portal message to inform. documented in this encounter Plan of Treatment Not on file documented as of this encounter Visit Diagnoses Diagnosis Vogt Koyanagi Syndrome Bilateral documented in this encounter
--- OUTSIDE RECORDS SUMMARY | 2023-09-27 16:39 | XMS_ITS | Encounter Summary ---
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 [address] [place] [phone] Rst [facility] [address] [place] [phone] Referral ID Status Reason Start Date Expiration Date Visits Re quested Visits Authorized [id number] Closed 09/04/2022 05/20/2035 1 1 Encounter Details Date Type Department Care Team (Latest Contact Info) Description 04/14/2023 8:23 AM CDT - 04/14/2023 11:59 PM CDT Hospital Encounter Department of Laboratory Medicine and Pathology, [facility], in [place], [place] [address] [place] [phone] Christofer England APRN, C.N.P. [address] [place] [phone] Vogt Koyanagi Syndrome Bilateral Discharge Disposition: Home or Self Care Social History Tobacco Use Types Packs/Day Years [...] How often do you attend sabianism or mosque serv ices? Never 08/15/2021 Do you belong [...] and heating? Not hard at all 04/07/2023 [facility] [place] of Occupat ional Health - Occupational Stress [...] your living situation today? I have a [facility] place to live 04/07/2023 Education Answer Date Recorded What is the highest level of school you have completed or the highest degree you have received? Professional school degree (e.g., MD, DDS, DVM, EFREM) 07/16/2020 Sex and Gender Information Value Date Recorded Sex Assigned at Male 08/15/2021 10:21 AM MASTER CONTROL TECHNICIAN Gender Identity Male 08/15/2021 10:21 AM MASTER CONTROL TECHNICIAN Sexual Orientation Straight 08/15/2021 10 :21 AM MASTER CONTROL TECHNICIAN documented as of this encounter Medications at Time of Discharge Medication Sig Dispensed Refills Start Date End Date mycophenolate (CELLCEPT) 500 mg tabletIndications:Vogt Koyanagi Syndrome Bilateral 3 tabs am and 2 tabs pm. 150 tablet 2 04/14/2023 05/01/2023 documented as of this encounter Plan of Treatment Not on file documented as of this encounter Procedures Procedure Name Priority Date/Time Associated Diagnosis Comments HBV DNA DETECT/QUANT, PCR, S Routine 04/14/2023 8:36 AM CDT Vogt Koyanagi Syndrome Bilateral CBC WITH DIFFERENTIAL, B Routine 023 8:36 AM CDT Vogt Koyanagi Syndrome Bilateral ASPARTATE AMINOTRANSFERASE (AST), S/P Routine 04/14/2023 8:36 AM CDT Vogt Koyanagi Syndrome Bilateral CREATININE WITH EGFR, S/P Routine 04/14/2023 8:36 AM CDT Vogt Koyanagi Syndrome Bilateral documented in this encounter Results * HBV DNA Detect/Quant, Serum (04/14/2023 8:36 AM CDT) Pathologist [facility] HBV DNA Detect/Quant, S Undetected Undetected IU/mL 04/15/2023 1:34 PM CDT [facility] Comment: Result in log IU/mL is Undetected. ----ADDITIONAL INFORMATION---- The quantification range of this assay is 10 to 1,000,000,000 IU/mL (1.00 log to 9.00 log IU/mL). Testing was performed using the devaughn HBV test ([employer] with the devaughn [employer] System. Blood (Blood, Venous) 04/14/2023 8:36 AM CDT 04/14/2023 11:49 AM CDT Christofer England APRN, C.N.P. LAB MICROBIO LOGY - BLOOD ORDERABLES [facility] [address] [place] [address] [facility] [address] [place] [address] [place] [address] * Creatinine with Estimated GFR (04/14/2023 8:36 AM CDT) Pathologist [facility] Creatinine 1.02 0.74 - 1.35 mg/dL 04/14/2023 9:30 AM CDT DTL Estimated GFR (eGFR) 86 >=60 mL/min/BSA 04/14/2023 9:30 AM CDT D[facility] Comment: Estimated GFR calculated using the 2020 CKD_EPI creatinine equation. Blood (Blood, Venous) 04/14/2023 8:36 AM CDT 04/14/2023 9:14 AM CDT Dany Kimble APRNNWill LAB BLOOD AD D-ON Performing Organization Address [facility] Co de Phone Number [facility] [place] [address] [facility] 200 [place] [address] * AST (Aspartate Aminotransferase) (04/14/2023 8:36 AM CDT) [facility] Aspartate Aminotransferase (AST), S 29 8 - 48 U/L 04/14/2023 9:30 AM CDT DTL Blood (Blood, Venous) 04/14/2023 8:36 AM CDT 04/14/2023 9:14 AM CDT Dany Kimble APRNNWill LAB BLOOD AD D-ON Performing Organization Address City/[facility]/ZIP Co de Phone Number [facility] [place] [address] [facility] 200 [place] [address] * CBC with Differential, Blood (04/14/2023 8:36 AM CDT) [facility] Hemoglobin 14.8 13.2 - 16.6 g/dL 04/14/2023 [...] - 6.45 x10(9)/L 04/14/2023 9:07 AM CDT PM Lymphocytes 2.59 0.95 - 3.07 x10(9)/L 04/14/2023 9:07 AM CDT DTL Monocytes 0.48 0.26 - 0.81 x10(9)/L 04/14/2023 9:07 AM CDT DTL Eosinophils 0.21 0.03 - 0.48 x10(9)/L 04/14/2023 9:07 AM CDT DTL Basophils 0.03 0.01 - 0.08 x10(9)/L 04/14/2023 9:07 AM CDT DTL Blood (Blood, Venous) 04/14/2023 8:36 AM CDT 04/14/2023 8:59 AM CDT Christofer England APRN C.N.P. LAB BLOOD AD D-ON [facility] [place] [address] [place] [address], [facility] DTL [facility] [address] [place] [address] [facility] [address] [place] [address] documented in this encounter Visit Diagnoses Diagnosis Vogt Koyanagi Syndrome Bilateral documented in this encounter Care Teams Clinical Practitioner Relationship Specialty Start Date End Date Elsewhere, Pcp PCP - General Internal Medicine 04/13/23 documented as of this encounter
--- OUTSIDE RECORDS SUMMARY | 2023-09-27 16:39 | XMS_ITS | Encounter Summary ---
Author Name Unknown Organization [facility] Address [address] [place] [address] Care Team Providers Care Sheet Pile Driver Operator Name Role Phone Unavailable Primary Care Provider Unavailabl e Reason for Visit * Reason Onset Date Comments Lab Monitoring 03/30/2023 Labs collected o n 03/29/23 Encounter Details Date Type Department Care Team (Latest Contact Info) Description 03/30/2023 Clinical Communication Division of Rheumatology in [place], [place] [address] [place] [phone] Antione Ordaz M.D. [address] [place] [phone] Lab Monitoring (Labs collected on 03/29/23) Social History Tobacco Use Types Packs/Day Years [...] week 08/15/2021 How often do you attend mormonism or baptism serv ices? Never 08/15/2021 Do you belong to any clubs o r organizations such as mormonism groups, unions, fraternal or athletic groups, or [...] and heating? Not hard at all 02/01/2023 [facility] [place] of Occupat ional Health - Occupational Stress [...] money to buy more. Never true 02/02/20 Within the past 12 months, t he [...] your living situation today? I have a [facility] place to live 02/01/2023 Education Answer Date Recorded What is the highest level of school you have completed or the highest degree you have received? Professional school degree (e.g., MD, DDS, DVM, EFREM) 07/16/2020 Sex and Gender Information Value Date Recorded Sex Assigned at Male 08/15/2021 10:21 AM RECORD CHANGER Gender Identity Male 08/15/2021 10:21 AM RECORD CHANGER Sexual Orientation Straight 08/15/2021 10 :21 AM RECORD CHANGER documented as of this encounter Miscellaneous Notes * Telephone Encounter - Tori Vilchis RRobinN. - 03/30/2023 3:18 PM CDT Documentation note only, patient not contacted ASSESSMENT Rheumatology monitoring labs completed at an external lab on 03/29/23 were reviewed per Rheumatologydivision parameters. Labs reviewed: absolute neutrophil count, hemoglobin, leukocytes, platelets External labs were entered into Labs Tab and sent for scanning. Labs Tab of Chart Review PLAN Patient to continue with current plan of care. documented in this encounter Plan of Treatment Not on file documented as of this encounter Visit Diagnoses Not on filedocumented in this encounter
--- OUTSIDE RECORDS SUMMARY | 2023-09-27 16:39 | XMS_ITS | Encounter Summary ---
Author Name Unknown Organization [facility] Address [address] [place] [address] Care Team Providers Care Millinery Copyist Name Role Phone Unavailable Primary Care Provider Unavailabl e Reason for Referral * Outpatient (Routine) - Closed Specialty Diagnoses / Procedures Referred By Don hall Referred To Contact Ophthalmology Diagnoses Vogt Koyanagi Syndrome Bilateral Sarah Dick M.D. [address] [place] [phone] [facility] Referral ID Status Reason Start Date Expiration Date Visits Re quested Visits Authorized [id number] Closed 09/04/2025 02/05/2027 1 1 Reason for Visit * Outpatient (Routine) - Closed Specialty Diagnoses / Procedures Referred By Don hall Referred To Contact Ophthalmology Diagnoses Vogt Koyanagi Syndrome Bilateral Sarah Dick M.D. [address] [place] [phone] [facility] Referral ID Status Reason Start Date Expiration Date Visits Re quested Visits Authorized [id number] Closed 04/20/2020 05/20/2035 1 1 Encounter Details Date Type Department Care Team (Latest Contact Info) Description 02/06/2023 8:30 AM CDT Office Visit Department of Ophthalmology in [place], [place] [address] [place] [phone] [place] [phone] Vogt Koyanagi Syndrome Bilateral (Primary Dx); Membrane [...] How often do you attend jew or hoahaoism serv ices? Never 08/15/2021 Do you belong [...] and heating? Not hard at all 02/01/2023 [facility] - Occupational Stress Questionnaire Answer Date Recorded [...] have a [facility] place to live 02/01/2023 Education Answer Date Recorded What is the highest level of school you have completed or the highest degree you have received? Professional school degree (e.g., MD, DDS, DVM, EFREM) 07/16/2020 Sex and Gender Information Value Date Recorded Sex Assigned at Male 08/15/2021 10:21 AM STALLION KEEPER Gender Identity Male 08/15/2021 10:21 AM STALLION KEEPER Sexual Orientation Straight 08/15/2021 10 :21 AM STALLION KEEPER documented as of this encounter Progress Notes * Sarah Dick M.D. 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 He is adopted, Mother is Mongolian, father of ancestry His symptoms started when [...] vision. He had a regular appointment with [facility] eye doctor for a check up - called for an earlier appointment. Saw Dr. Shahid 2-3 days after that. He did not have any redness or light sensitivity at that time. 02/18/20 - gravity meter observer Dr. Fifi Shahid at [facility] in [place]. He had had red eyes for 2-3 [...] AST slightly elevated.) He was referred to human projectile Dr. Ledesma in [place]. On 02/19/20, he saw Dr. Ledesma who [...] folds. 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 He was admitted for [...] and macular serous fluid were also resolving. Marketing Ambassador Dr. Nancy Meeks - 02/28/20. He was [...] as evaluation with ENT and rheumatology at [facility]. Subsequently, he did increase prednisone to 20mg x 2 wks, 15 mg x 2wks, then 10 mg. The tinnitus isresolved, he is not sure if the hearing loss has improved. The most recent telemedicine visit with Dr. Meeks was 05/22/20. PMH Gluten sensitivity, lactose intolerance. 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 It sounds [...] systemic corticosteroid sparing medication improves outcomes in Lpdj-Ywvvigaz-Zousdm syndrome uveitis by lowering the risk of [...] His is on a Facebook page for Paxm-Rvkpxfmd-Pvjszs syndrome - wondering which medication he should take. They would like to consolidate care here with specialists who have familiarity with Rmir-Anlsqbxw-Ouvwuz syndrome. Therefore, I will refer him to [...] the literature reporting efficacy of adalimumab in Gxtt-Jqombddl-Gmbnvy syndrome. 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 (The headache related to Qmxv-Wpdmfzuk-Qdlmgn syndrome is different than previous tension headaches.) [...] illnesses/infections He had labs on Monday through [facility]. (results not visible in Epic; most [...] for repeat monitoring labs in 2-3 months. TODAY - 02/06/23 No infections or missed doses of CellCept since last visit. He is due for labs soon. He has a rheumatology appointment on 04/14/23. He still sees one floater in the right eye, only notices it when he looks for it. He has had a few headaches, but nothing unusual. Often associated with eye strain/reading a lot. Systemic Medications: CellCept 1500 mg and 1000 mg (started 1000 mg BID 06/2020, increased 03/2021 to 1500 BID but did nottolerate this dose.) Stopped oral prednisone as of early March 2022. Eye drops: Off Prednisolone daily both eyes (stopped 1 month ago) Artificial tears PRN EXAM & IMAGING VA with correction 20/25 and 20/20 iCare pressures 14 and 14 The left has just rare anterior chamber [...] thickness is stable in both eyes. PLAN The right eye has a few more [...] decreasing CellCept slightly to 1000 mg BID. Previously discussed using Bio True preservative free artificial tears for blurred vision and otherdry eye symptoms. Follow up in April 2023 (04/28/23 8:30 am) with repeat macula OCT & Optos fluorescein angiography. Local PCP: Dr. Rafaela Collins Ophth: Dr. Zelaya Rheum: Dr. Nancy Meeks (in [facility]) now Dr. Ordaz ENT Dr. Cj Garnica documented in this encounter Plan of Treatment Scheduled Referrals Name Type Priority Associated Diagnoses Order Schedule Ophthalmology office visit (clinic) Outpatient Referral Routine Vogt Koyanagi Syndrome Bilateral Expected: 04/28/2023, Expires: 02/06/2026 documented as of this encounter Results * Optical Coherence Tomography - Macula/Retina - OU - Both Eyes (04/27/2023 3:36 PM CDT) CMT L Microns 392 um OPH THALMOLOGY IMAGING EXAM CMT R Microns 297 um OPH THALMOLOGY IMAGING EXAM Narrative OPHTHALMOLOGY IMAGING EXAM - 05/11/2023 4:06 PM CDT Right Eye Reliability was good. OCT device used was Spectralis . Scan locations included macula. Findings include epiretinal membrane. Central macular thickness 297 um. Left Eye Reliability was good. OCT device used was Spectralis . Scan locations included macula. Findings include epiretinal membrane. Central macular thickness 392 um. Notes RIGHT - normal macular thickness except relative thickening in nasal paramacular region - stable vs previous. intact foveal depression and retinal layers except the interdigitation zone might be less robust than normal. There are a few more intraretinal cysts perifoveal and just superior to the fovea - possibly related to epiretinal membrane which is relatively thick. No subretinal fluid. The choroid is not thickened; the previous focal area of increased thickening in the superior macula has not recurred. Posterior hyaloid is attached. LEFT - stable irregular thickening in central macula due to epiretinal membrane contraction. intact foveal depression and retinal layers except the interdigitation zone might be less robust than normal. no intra or subretinal fluid. The choroid is not thickened; it is stable vs previous. Sarah Dick M.D. 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
--- OUTSIDE RECORDS SUMMARY | 2023-09-27 16:39 | XMS_ITS | Encounter Summary ---
Author Name Unknown Organization [facility] Address [address] [place] [address] Care Team Providers Care Construction Inspector Name Role Phone Elsewhere, Pcp Primary Care Provider Unavailabl e Reason for Visit * Outpatient (Routine) - Closed Specialty Diagnoses / Procedures Referred By Don hall Referred To Contact Ophthalmology Diagnoses Vogt Koyanagi Syndrome Bilateral Procedures OPTICAL COHERENCE TOMOGRAPHY - MACULA/RETINA - OU - BOTH EYES OPH TEST OCT Sarah Dick M.D. [address] [place] [phone] [address] [place] [address] [place] [phone] Referral ID Status Reason Start Date Expiration Date Visits Re quested Visits Authorized [id number] Closed 04/20/2020 04/27/2025 3 3 Encounter Details Date Type Department Care Team (Latest Contact Info) Description 04/27/2023 2:15 PM CDT Procedure visit Department of Ophthalmology in [place], [place] [address] [place] [phone] Sarah Dick M.D. [address] [place] [phone] Sinan Desir Vogt Koyanagi Syndrome Bilateral Social History Tobacco [...] week 08/15/2021 How often do you attend baptist or yazdanism serv ices? Never 08/15/2021 Do you belong to any clubs o r organizations such as baptist groups, unions, fraternal or athletic groups, or [...] and heating? Not hard at all 04/07/2023 [place] of Occupat ional Health - Occupational Stress [...] you have received? Professional school degree (e.g., , DDS, DVM, EFREM) 07/16/2020 Sex and Gender Information Value Date Recorded Sex Assigned at Male 08/15/2021 10:21 AM BRICK PAVER Gender Identity Male 08/15/2021 10:21 AM BRICK PAVER Sexual Orientation Straight 08/15/2021 10 :21 AM BRICK PAVER documented as of this encounter Progress Notes * Sinan Desir - 04/27/2023 2:15 PM CDT Patient was assessed for Angiogram. Verified education and informed consent has been completed. Patient fits discharge criteria; patient sent to have IV removed. Dr. DICK is the authorizing prescriber who directed the protocol. Patient's creatinine level is Lab Results Component Value Date CREATININE 1.02 04/14/2023 Adverse reaction noted: NONE. documented in this encounter Plan of Treatment [...] Koyanagi Syndrome Bilateral documented in this encounter Administered Medications Active Administered Medications - up to 3 most recent administrations Medication Order MAR Action Action Date Dose Rate Site sodium chloride 0.9 % injection 3 mL 3 mL, intravenous, As needed, line care, As needed for line care, Peripheral Intravenous Catheter and Rapid Infusion Catheter, Starting on Mon02/06/23 at 0951 Given 04/27/2023 2:58 PM CDT 3 mL Inactive Administered Medications - up to 3 most recent administrations Medication Order MAR Action Action Date Dose Rate Site fluorescein 100 mg/mL (10 %) injection 500 mg (AK-FLUOR/FLUORESCEIN) 500 mg, intravenous, Once in imaging, contrast, Starting on Mon02/06/23 at 0951, For 1 dose Given 04/27/2023 2:58 PM CDT 500 mg documented in this encounter Care Teams Construction Inspector Relationship Specialty Start Date End Date Elsewhere, Pcp PCP - General Internal Medicine 04/13/23 documented as of this encounter
--- OUTSIDE RECORDS SUMMARY | 2023-09-27 16:39 | XMS_ITS | Encounter Summary ---
Author Name Unknown Organization [facility] Address [address] [place] [address] Care Team Providers Care Coordinator Of Health Services Name Role Phone Unavailable Primary Care Provider Unavailabl e Encounter Details Date Type Department Care Team (Latest Contact Info) Description 02/06/2023 8:00 AM CDT Ancillary Procedure Department of Ophthalmology in [place], [place] [address] [place] [address] Sarah Dick M.D. [address] [place] [phone] Membrane Macula Epiretinal Bilateral (Primary Dx); Vogt Koyanagi Syndrome Bilateral Social History Tobacco [...] week 08/15/2021 How often do you attend episcopal or spiritism serv ices? Never 08/15/2021 Do you belong to any clubs o r organizations such as episcopal groups, unions, fraternal or athletic groups, or [...] and heating? Not hard at all 02/01/2023 [facility] of Occupat ional Health - Occupational Stress [...] your living situation today? I have a [facility] place to live 02/01/2023 Education Answer Date Recorded What is the highest level of school you have completed or the highest degree you have received? 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 OCT device used was Spectralis . Scan locations included macula. Findings include epiretinal membrane. Central macular thickness 292 um. Left Eye Reliability was good. OCT device used was Spectralis . Scan locations included macula. Findings include epiretinal membrane. Central macular thickness 360 um. Notes RIGHT - normal macular thickness except relative thickening in nasal paramacular region - very slight increase in thickness overall and just superior to fovea. intact foveal depression and retinal layers except [...] vs previous. Sarah Dick M.D. OPHTH TOMOGRAPHY OPHTHALMOLOGY IMAGING EXAM documented in this encounter Visit Diagnoses Diagnosis Membrane Macula Epiretinal Bilateral- Primary Vogt Koyanagi Syndrome Bilateral documented in this encounter
--- OUTSIDE RECORDS SUMMARY | 2023-09-27 16:39 | XMS_ITS | Encounter Summary ---
Author Name Unknown Organization [facility] Address [address] [place] [address] Care Team Providers Care Birdcage Assembler Name Role Phone Unavailable Primary Care Provider Unavailabl e Reason for Visit * Reason Comments Med Refill Encounter Details Date Type Department Care Team (Late st Contact Info) Description 12/09/2022 Refill Division of Rheumatology in [place], [place] [address] [place] [address] Antione Ordaz M.D. [address] [place] [phone] Med Refill Social History Tobacco Use Types Packs/Day Years Used Date Smoking Tobacco: Passive Smo ke Exposure - Never Smoker Smokeless Tobacco: Former Chew Quit: 10/01/1988 Alcohol Use Standard Drinks/Week Comments Yes 4 (1 standard drink = 0.6 oz pur e alcohol) Social Connection and Isolation Panel [NHANES] A nswer Date Recorded In a typical week, how many times do you talk on the phone with family, friends, or neighbors? Never 08/15/2021 How often do you get together with friends or re latives? Once a week 08/15/2021 How often do you attend nondenominational or confucianist serv ices? Never 08/15/2021 Do you belong [...] care, and heating? Not hard at all 08/15/2021 [facility] of Occupat ional Health - Occupational Stress [...] to strenuous exercise (like a brisk walk)? 3 days 08/15/2021 On average, how many minutes do you engage in exercise at this level? 60 min 08/15/2021 Hunger Vital Sign Answer Date Recorded Within the past 12 months, y ou worried that your food would run out before you got the money to buy more. Never true 08/15/20 21 Within the past 12 months, t he food you bought just didn't last and you didn't have money to get more. Never true 08/15/2021 PRAPARE - Transportation Answer Date Re corded In the past 12 months, has l ack of transportation kept you from medical appointments or from getting medications? No 08/04 In the past 12 months, has l ack of transportation kept you from meetings, work, or from getting things needed for daily living? No 08/15/2021 Housing Stability Vital Sign Answer Rc e Recorded In the last 12 months, was t here a time when you were not able to pay the mortgage or rent on time? No 08/15/2021 In the last 12 months, how many places have you lived? 1 08/15/2021 In the last 12 months, was t here a time when you did not have a steady place to sleep or slept in a fci (including now)? No 08/15/2021 Nutrition Answer Date Recorded Nutrition: EVOO Fat Source No 08/15 On average, how many serving s of fruits and vegetables do you eat per day (serving size is equal to 1 cup or approximately the size of a tennis ball)? 0-1 08/15/2021 Dental Answer Date Recorded Dental: Regular Dentist Yes 09/04/19 Employment Answer Date Recorded Employment status Employed and actively working without restrictions 08/15/2021 Education Answer Date Recorded What is the highest level of school you have completed or the highest degree you have received? Professional school degree (e.g., MD, DDS, DVM, EFREM) 07/16/2020 Sex and Gender Information Value Date Recorded Sex Assigned at Male 08/15/2021 10:21 AM MANAGER ENROLLMENT Gender Identity Male 08/15/2021 10:21 AM MANAGER ENROLLMENT Sexual Orientation Straight 08/15/2021 10 :21 AM MANAGER ENROLLMENT documented as of this encounter Miscellaneous Notes * Telephone Encounter - Guerita León RRobinN. - 12/09/2022 12:52 PM CDT Prescription renewal request for mycophenolate mofetil (Cellcept) received from pharmacy. HISTORY OF PRESENT ILLNESS Last Rheum visit: 08/19/2021 with Antione Ordaz MD Future office visit: ordered, not yet scheduled Last monitoring labs/eye exam: 11/22/2022: within protocol parameters. Prescription request matches current plan of care. Prescription request matches a current prescription in the Medication List. Exclusion criteria: None ASSESSMENT/PLAN Prescription request pended for provider review due to due for annual Rheumatology appointment, 90 day supply pended. documented in this encounter Plan of Treatment Not on file documented as of this encounter Visit Diagnoses Diagnosis Vogt Koyanagi Syndrome Bilateral documented in this encounter
--- OUTSIDE RECORDS SUMMARY | 2023-09-27 16:39 | XMS_ITS | Encounter Summary ---
Author Name Unknown Organization [facility] Address [address] [place] [address] Care Team Providers Care Inventory Control Assistant Name Role Phone Elsewhere, Pcp Primary Care Provider Unavailabl e Reason for Visit * Reason Onset Date Comments Pre-visit Intake 04/13/2023 Encounter Details Date Type Department Care Team (Latest Contact Info) Description 04/13/2023 8:45 AM CDT Clinical Communication Virtual Review in [place], [place] [address] [place], [place] [phone] Pre-visit Intake Social History Tobacco Use Types Packs/Day Years [...] How often do you attend jew or sabianist serv ices? Never 08/15/2021 Do you belong [...] and heating? Not hard at all 04/07/2023 [facility] of Occupat ional Health - Occupational [...] your living situation today? I have a [facility] place to live 04/07/2023 Education Answer Date Recorded What is the highest level of school you have completed or the highest degree you have received? Professional school degree (e.g., MD, DDS, DVM, EFREM) 07/16/2020 Sex and Gender Information Value Date Recorded Sex Assigned at Male 08/15/2021 10:21 AM MANAGER ETL Gender Identity Male 08/15/2021 10:21 AM MANAGER ETL Sexual Orientation Straight 08/15/2021 10 :21 AM MANAGER ETL documented as of this encounter Plan of Treatment Not on file documented as of this encounter Visit Diagnoses Not on filedocumented in this encounter Care Teams Inventory Control Assistant Relationship Specialty Start Date End Date Elsewhere, Pcp PCP - General Internal Medicine 04/13/23 documented as of this encounter
--- OUTSIDE RECORDS SUMMARY | 2023-09-27 16:39 | XMS_ITS | Encounter Summary ---
Author Name Unknown Organization [facility] Address [address] [place] [address] Care Team Providers Care Escrow Closer Name Role Phone Unavailable Primary Care Provider Unavailabl e Encounter Details Date Type Department Care Team (Late st Contact Info) Description 11/28/2022 Ancillary Procedure Department of Ophthalmology Social History [...] week 08/15/2021 How often do you attend presybeterian or shinto serv ices? Never 08/15/2021 Do you belong to any clubs o r organizations such as presybeterian groups, unions, fraternal or athletic groups, or [...] and heating? Not hard at all 08/15/2021 [facility] of Occupat ional [facility] - Occupational Stress Questionnaire Answer [...] place to sleep or slept in a alf (including now)? No 08/15/2021 Nutrition Answer Date [...] Sex Assigned at Male 08/15/2021 10:21 AM EDITOR MAP Gender Identity Male 08/15/2021 10:21 AM EDITOR MAP Sexual Orientation Straight 08/15/2021 10 :21 AM EDITOR MAP documented as of this encounter Plan of Treatment Not on file documented as of this encounter Procedures Procedure Name Priority Date/Time Associated Diagnosis Comments OPHTHALMOLOGY IMAGE EXAM Routine 11/28/2022 12:00 AM CDT documented in this encounter Results * Eyes Spectralis OCT-Ophthalmology Image Exam (11/28/2022 12:00 AM CDT) Narrative [facility] - 11/28/2022 9:06 AM CDT This order has been created [...]
--- OUTSIDE RECORDS SUMMARY | 2023-09-27 16:39 | XMS_ITS | Encounter Summary ---
Author Name Unknown Organization [facility] Address [address] [place] [address] Care Team Providers Care Vp Emerging Media Name Role Phone Unavailable Primary Care Provider Unavailabl e Encounter Details Date Type Department Care Team (Late st Contact Info) Description 02/06/2023 Ancillary Procedure Department of Ophthalmology Social History [...] week 08/15/2021 How often do you attend confucianism or anabaptist serv ices? Never 08/15/2021 Do you belong to any clubs o r organizations such as confucianism groups, unions, fraternal or athletic groups, or [...] Not hard at all 02/01/2023 [facility] of Occupat ional Health - Occupational Stress [...] Sex Assigned at Male 08/15/2021 10:21 AM HOME SECURITY ALARM INSTALLER Gender Identity Male 08/15/2021 10:21 AM HOME SECURITY ALARM INSTALLER Sexual Orientation Straight 08/15/2021 10 :21 AM HOME SECURITY ALARM INSTALLER documented as of this encounter Plan of Treatment Not on file documented as of this encounter Procedures Procedure Name Priority Date/Time Associated Diagnosis Comments OPHTHALMOLOGY IMAGE EXAM Routine 02/06/2023 12:00 AM CDT documented in this encounter Results * Eyes Spectralis OCT-Ophthalmology Image Exam (02/06/2023 12:00 AM CDT) Narrative [facility] - 02/06/2023 8:29 AM CDT This order has been created and auto-finalized to support the import of images acquired without order. The clinical documentation to support these images can be found on the encounter that produced images. Provider Not In System IMG NON RAD IMAGI NG PROCEDURES IILA NA documented in this encounter Visit Diagnoses Not on filedocumented in this encounter
--- OUTSIDE RECORDS SUMMARY | 2023-09-27 16:39 | XMS_ITS | Encounter Summary ---
Author Name Unknown Organization [facility] Address [address] [place] [address] Care Team Providers Care Holistic Health Practitioner Name Role Phone Elsewhere, Pcp Primary Care Provider Unavailabl e Reason for Referral * Outpatient (Routine) - Pending Review Specialty Diagnoses / Procedures Referred By Don hall Referred To Contact Rheumatology Christofer England APRN, C.N.P. [address] [place] [phone] [facility] Referral ID Status Reason Start Date Expiration Date V isits Requested Visits Authorized [id number] Pending Review 04/14/2023 04/13/2026 1 1 Reason for Visit * Outpatient (Routine) - Closed Specialty Diagnoses / Procedures Referred By Don hall Referred To Contact Rheumatology Diagnoses dx Antione Ordaz M.D. [address] [place] [phone] [facility] Referral ID Status Reason Start Date Expiration Date Visits Re quested Visits Authorized [id number] Closed 09/04/2022 10/16/2026 1 1 Encounter Details Date Type Department Care Team (Latest Contact Info) Description 04/14/2023 9:30 AM CDT Office Visit Division of Rheumatology in [place], [place] [address] [place] [phone] Christofer England, PRINCE, C.N.P. [address] [place] [phone] Vogt Koyanagi Syndrome Bilateral (Primary Dx); High Risk Medication Social History Tobacco Use Types Packs/Day Years [...] week 08/15/2021 How often do you attend denominational or jain serv ices? Never 08/15/2021 Do you belong to any clubs o r organizations such as denominational groups, unions, fraternal or athletic groups, or [...] and heating? Not hard at all 04/07/2023 [facility] - Occupational Stress Questionnaire Answer Date [...] your living situation today? I have a [facility] place to live 04/07/2023 Education Answer Date Recorded What is the highest level of school you have completed or the highest degree you have received? Professional school degree (e.g., MD, DDS, DVM, EFREM) 07/16/2020 Sex and Gender Information Value Date Recorded Sex Assigned at Male 08/15/2021 10:21 AM DOOR ATTENDANT Gender Identity Male 08/15/2021 10:21 AM DOOR ATTENDANT Sexual Orientation Straight 08/15/2021 10 :21 AM DOOR ATTENDANT documented as of this encounter Last Filed Vital Signs Vital Sign Reading [...] Mass Index 31.56 04/14/2023 9:34 AM CDT documented in this encounter Progress Notes * Christofer England, PRINCE, C.N.P. - 04/14/2023 9:30 AM CDT SUBJECTIVE CHIEF COMPLAINT / REASON FOR VISIT Lucas Lai is a 57 y.o. male who presents for follow up of Vogt Koyanagi Manny syndrome. HISTORY OF PRESENT ILLNESS Mr. Lai is a very pleasant 57 y.o. male from [place], [place], presenting today as an established patient for follow up of Vogt Koyanagi Manny syndrome that was diagnosed in 2019. He developed reddening of the eyes, visual changes and headaches. On February 18, 2020, he was diagnosed with bilateral anterior uveitis. He had negative LATRICIA, negative anti CCP antibody, negative rheumatoid factor normal ESR. Infectious disease testing was negative for Lyme, QuantiFERON TB, HLA B27, syphilis. He has positive hepatitis B core antibody. He was started on high-dose prednisone in February 2020. Due to sustained ocular inflammation and an inability to taper off the prednisone, he was referred to Rheumatology and he saw Dr Ordaz initially in July 2020. It was at the time that he was started on CellCept therapy. CellCept currently 1500 mg and 1000 mg (started 1000 mg BID 06/2020, increased 03/2021 to 1500 BID but did not tolerate this dose.) Stopped oral prednisone as of early March 2022. Patient is followed closely by Dr. Dick in Ophthalmology. I had the pleasure of meeting Lucas for the first time today in follow-up. He is reporting todaythat he has been tolerating the CellCept well. His last visit to Rheumatology was in August 2021.He is not reporting any clinical side effects of concern. With regards to infections he does indicate that he had COVID at some point. He did receive Paxlovid treatment and reports good response to that. He has not noted any other significant infections of concern. He continues to follow closely with Dr. Dick in Ophthalmology. He has been off of prednisone now for one year. He indicates that he is increasingly feeling back to himself the longer he has been off of the prednisone. He does have follow-up visit with Dr. Dick in two weeks. No concerns today from the standpoint of his ocular disease. He reports rare headaches, nothing that has increased in frequency. Previous Reports Reviewed:lab reports, office notes, and outside records The following portions of the patient's history were reviewed and updated as appropriate: allergies, current medications, family history, medical history, social history, surgical history, and problem list. REVIEW OF SYSTEMS Pertinent positives and negatives as documented in the above history of present illness. REVIEW OF SYSTEMS OBJECTIVE PHYSICAL EXAMINATION Vitals reviewed. Constitutional Appearance: Normal appearance. He is well-developed. Eyes Conjunctiva/sclera: Conjunctivae normal. Pupils: Pupils are equal, round, and reactive to light. Cardiovascular Rate and Rhythm: Normal rate and regular rhythm. Pulses: Normal pulses. Pulmonary Effort: Pulmonary effort is normal. Breath sounds: Normal breath sounds. Abdominal Palpations: Abdomen is soft. Tenderness: There is no abdominal tenderness. Musculoskeletal General: No swelling or tenderness. Cervical back: Normal range of motion. Skin General: Skin is warm and dry. Neurological Mental Status: He is alert and oriented to person, place, and time. Lab: Laboratory studies completed locally prior to today's visit include a normal CBC and creatinine. Imaging: No imaging studies for today's visit. ASSESSMENT / PLAN #1 Vogt Koyanagi Syndrome Bilateral #2 High Risk Medication Julio ophthalmology notes reviewed from February there no concerns for active disease that would require increase in therapy. The patient recalls a discussion from visit in February that they may consider initiating a slow reduction in CellCept if things are stable at his upcoming visit in two weeks. For now will continue with plan as follows: CellCept refilled for current dose 1500 mg a.m. and 1000 mg p.m.. He will continue with laboratory monitoring to include CBC with differential every two months. He does have an active order for that which she does locally. We reviewed some of the side effects including infection and risk for skin cancers. Would encouragehim to touch bases with his primary care provider regarding periodic skin checks. Will anticipate follow-up in a year sooner if concerns arise. FOLLOW-UP Long-term management and follow-up: Mr. Lai will continue longitudinal management and follow-up in the Division of Rheumatology at [facility]. Next appointment in 12 months. Rheumatology-related medications: Prescriptions, laboratory monitoring, and refills will be managedby the Division of Rheumatology at [facility]. Disease flares or relapse: Mr. Lai will see Dr. Dick. PATIENT EDUCATION Ready to learn, no apparent learning barriers were identified; learning preferences include listening. Explained diagnosis and treatment plan; patient expressed understanding of the content. documented in this encounter Plan of Treatment Scheduled Orders Name Type Priority Associated Diagnoses Orde r Schedule CBC with Differential, Blood Lab Routine Vogt Koyanagi Syndrome Bilateral High Risk Medication Expected: 04/14/2024 (Approximate), Expires: 07/15/2024 Creatinine with Estimated GFR Lab Routine Vogt Koyanagi Syndrome Bilateral High Risk Medication Expected: 04/14/2024 (Approximate), Expires: 07/15/2024 AST (Aspartate Aminotransferase) Lab Routine Vogt Koyanagi Syndrome Bilateral High Risk Medication Expected: 04/14/2024 (Approximate), Expires: 07/15/2024 Scheduled Referrals Name Type Priority Associated Diagnoses Order Schedule Rheumatology office visit (clinic) Outpatient Referral Routine Expected: 04/14/2024 (Approximate), Expires: 07/15/2024 documented as of this encounter Visit Diagnoses Diagnosis Vogt Koyanagi Syndrome Bilateral- Primary High Risk Medication documented in this encounter Care Teams Holistic Health Practitioner Relationship Specialty Start Date End Date Elsewhere, Pcp PCP - General Internal Medicine 04/13/23 documented as of this encounter
--- OUTSIDE RECORDS SUMMARY | 2023-09-27 16:39 | XMS_ITS | Encounter Summary ---
Author Name Unknown Organization [facility] Address [address] [place] [address] Care Team Providers Care Flame Cutting Supervisor Name Role Phone Unavailable Primary Care Provider Unavailabl e Reason for Visit * Reason Comments Med Refill Encounter Details Date Type Department Care Team ([facility] st Contact Info) Description 03/17/2023 Refill Division of Rheumatology in [place], [place] [address] [place] [phone] Reese Jimenez M.D. [address] [place] [phone] Med Refill Social History Tobacco Use Types [...] week 08/15/2021 How often do you attend gnosticist or bahai serv ices? Never 08/15/2021 Do you belong to any clubs o r organizations such as gnosticist groups, unions, fraternal or athletic groups, or [...] and heating? Not hard at all 02/01/2023 [facility] - Occupational Stress Questionnaire Answer Date [...] living situation today? I have a [facility] place to live 02/01/2023 Education Answer Date Recorded What is the highest level of school you have completed or the highest degree you have received? Professional school degree (e.g., MD, DDS, DVM, EFREM) 07/16/2020 Sex and Gender Information Value Date Recorded Sex Assigned at Male 08/15/2021 10:21 AM RN NIGHT Gender Identity Male 08/15/2021 10:21 AM RN NIGHT Sexual Orientation Straight 08/15/2021 10 :21 AM RN NIGHT documented as of this encounter Miscellaneous Notes * Telephone Encounter - Tia Dooley M.S.N., R.N. - 03/21/2023 2:39 PM CDT Prescription renewal request for mycophenolate mofetil (Cellcept) received from pharmacy. HISTORY OF PRESENT ILLNESS Last Rheum visit: 08/19/2021 with Antione Ordaz MD Future office visit: 04/14/23 Last monitoring labs/eye exam: labs: outside protocol parameters. Last CBC w/differential was 11/2022, needed every 2 months Prescription request matches current plan of care. Prescription request matches a current prescription in the Medication List. Exclusion criteria: None ASSESSMENT/PLAN Prescription request pended for provider review due to missing monitoring labs. 30 day supply pended. Patient saw Dr. Dick on 02/06/23 and recommended that he continue 1500 mg qam and 1000 mg qpm at that time. documented in this encounter Plan of Treatment Not on file documented as of this encounter Visit Diagnoses Diagnosis Vogt Koyanagi Syndrome Bilateral documented in this encounter
--- OUTSIDE RECORDS SUMMARY | 2023-09-27 16:39 | XMS_ITS | Encounter Summary ---
Author Name Unknown Organization [facility] Address [address] [place] [address] Care Team Providers Care Advertising Dispatch Clerks Supervisor Name Role Phone Unavailable Primary Care Provider Unavailabl e Reason for Visit * Reason Onset Date Comments Lab Monitoring 03/29/2023 Collected 3 Encounter Details Date Type Department Care Team (Late st Contact Info) Description 03/29/2023 Refill Division of Rheumatology in [place], [place] [address] [place] [phone] Antione Ordaz M.D. [address] [place] [phone] Lab Monitoring (Collected 03/29/23) Social History Tobacco Use Types Packs/Day [...] week 08/15/2021 How often do you attend druze or pentecostalism serv ices? Never 08/15/2021 Do you belong to any clubs o r organizations such as druze groups, unions, fraternal or athletic groups, or [...] and heating? Not hard at all 02/01/2023 [facility] - Occupational Stress Questionnaire Answer Date [...] your living situation today? I have a [facility] place to live 02/01/2023 Education Answer Date Recorded What is the highest level of school you have completed or the highest degree you have received? Professional school degree (e.g., MD, DDS, DVM, EFREM) 07/16/2020 Sex and Gender Information Value Date Recorded Sex Assigned at Male 08/15/2021 10:21 AM ORE MIXER Gender Identity Male 08/15/2021 10:21 AM ORE MIXER Sexual Orientation Straight 08/15/2021 10 :21 AM ORE MIXER documented as of this encounter Miscellaneous Notes * Telephone Encounter - Soha Kaur, L.P.N. - 03/29/2023 2:32 PM CDT ASSESSMENT Rheumatology monitoring labs completed at an external lab on 03/29/2023 were reviewed per outside lab reference ranges. All monitored labs are within the reference range.. Labs reviewed: hemoglobin, leukocytes, platelets, and absolute neutrophil count External labs were entered into Labs Tab and sent for scanning. PLAN Patient to continue with current plan of care. documented in this encounter Plan of Treatment Not on file documented as of this encounter Procedures Procedure Name Priority Date/Time Associated Diagnosis Comments CBC WITH DIFFERENTIAL, B Routine 03/29/2023 documented in this encounter Results * CBC with Differential, Blood (03/29/2023) EXT Platelet Count 271 140 - 440 [facility] EXT Neutrophils 2.53 1.7 - 7 [facility] EXT Hemoglobin 14.7 13.5 - 17.5 [facility] EXT White Blood Cell (WBC) Count 5.4 4.5 - 11.0 [facility] Blood (Blood, Venous) Antione Ordaz M.D. LAB BLOOD ADD-ON [facility] [address] [place] [address], [facility] [phone] documented in this encounter Visit Diagnoses Not on filedocumented in this encounter
--- OUTSIDE RECORDS SUMMARY | 2023-09-27 16:39 | XMS_ITS | Encounter Summary ---
Author Name Unknown Organization [facility] Address [address] [place] [address] Care Team Providers Care Recruitment Consultant Name Role Phone Elsewhere, Pcp Primary Care Provider Unavailabl e Reason for Visit * Outpatient (Routine) - Closed Specialty Diagnoses / Procedures Referred By Don t Referred To Contact Ophthalmology Diagnoses Vogt Koyanagi Syndrome Bilateral Procedures OPTICAL COHERENCE TOMOGRAPHY - MACULA/RETINA - OU - BOTH EYES OPH TEST OCT Sarah Dick M.D. [address] [place] [address] Rst Oph [place] [address] [place] [phone] Referral ID Status Reason Start Date Expiration Date Visits Re quested Visits Authorized [id number] Closed 04/20/2020 04/27/2025 3 3 Encounter Details Date Type Department Care Team (Latest Contact Info) Description 04/27/2023 2:00 PM CDT Ancillary Procedure Department of Ophthalmology in [place], [place] [address] [place] [address] Sarah Dick M.D. [address] [place] [address] Vogt Koyanagi Syndrome Bilateral Social History Tobacco [...] week 08/15/2021 How often do you attend evangelical or episcopal serv ices? Never 08/15/2021 Do you belong to any clubs o r organizations such as evangelical groups, unions, fraternal or athletic groups, or [...] and heating? Not hard at all 04/07/2023 [facility] of Occupat ional Health - Occupational Stress [...] your living situation today? [facility] 04/07/2023 Education Answer Date Recorded What is the highest level of school you have completed or the highest degree you have received? Professional school degree (e.g., , DDS, DVM, EFREM) 07/16/2020 Sex and Gender Information Value Date Recorded Sex Assigned at Male 08/15/2021 10:21 AM CIVIL ENGINEER Gender Identity Male 08/15/2021 10:21 AM CIVIL ENGINEER Sexual Orientation Straight 08/15/2021 10 :21 AM CIVIL ENGINEER documented as of this encounter Plan of Treatment Not on file documented as of this encounter Procedures Procedure Name Priority Date/Time Associated Diagnosis Comments OPTICAL COHERENCE TOMOGRAPHY - MACULA/RETINA - OU - BOTH EYES Routine 04/27/2023 3:36 PM CDT Vogt Koyanagi Syndrome Bilateral documented [...] Bilateral documented in this encounter Care Teams Recruitment Consultant Relationship Specialty Start Date End Date Elsewhere, Pcp PCP - General Internal Medicine 04/13/23 documented as of this encounter
--- OUTSIDE RECORDS SUMMARY | 2023-09-27 16:40 | XMS_ITS | Encounter Summary ---
Author Name Unknown Organization [facility] Address [address] [place] [address] Care Team Providers Care Licensed Real Estate Broker Name Role Phone Unavailable Primary Care Provider Unavailabl e Reason for Visit * Reason Onset Date Comments Appointment 10/17/2022 For med refills Encounter Details Date Type Department Care Team (Latest Contact Info) Description 10/17/2022 Clinical Communication Division of Rheumatology in [place], [place] [address] [place] [address] Antione Ordaz M.D. [address] [place] [phone] Appointment (For med refills) Social History Tobacco Use Types Packs/Day Years [...] week 08/15/2021 How often do you attend roman catholic or caodaism serv ices? Never 08/15/2021 Do you belong to any clubs o r organizations such as roman catholic groups, unions, fraternal or athletic groups, or [...] and heating? Not hard at all 08/15/2021 [facility] of Occupat ional Health - Occupational Stress [...] place to sleep or slept in a care home (including now)? No 08/15/2021 Nutrition Answer Date [...] Sex Assigned at Male 08/15/2021 10:21 AM NURSERY SCHOOL TEACHER Gender Identity Male 08/15/2021 10:21 AM NURSERY SCHOOL TEACHER Sexual Orientation Straight 08/15/2021 10 :21 AM NURSERY SCHOOL TEACHER documented as of this encounter Plan of Treatment Not on file documented as of this encounter Visit Diagnoses Not on filedocumented in this encounter
--- OUTSIDE RECORDS SUMMARY | 2023-09-27 16:40 | XMS_ITS | Encounter Summary ---
Author Name Unknown Organization [facility] Address [address] [place] [address] Care Team Providers Care Depilatory Painter Name Role Phone Unavailable Primary Care Provider Unavailabl e Reason for Visit * Outpatient (Routine) - Closed Specialty Diagnoses / Procedures Referred By Don hall Referred To Contact Ophthalmology Diagnoses Vogt Koyanagi Syndrome Bilateral Procedures OPTICAL COHERENCE TOMOGRAPHY - MACULA/RETINA - OU - BOTH EYES OPH TEST OCT Sarah Dick M.D. [address] [place] [address] Rst Oph [place] [address] [place] [phone] Referral ID Status Reason Start Date Expiration Date Visits Re quested Visits Authorized [id number] Closed 11/28/2022 05/20/2035 1 1 Encounter Details Date Type Department Care Team (Latest Contact Info) Description 11/28/2022 8:50 AM CDT Ancillary Procedure Department of Ophthalmology in [place], [place] [address] [place] [address] Sarah Dick M.D. [address] [place] [address] Vogt Koyanagi Syndrome Bilateral Social [...] week 08/15/2021 How often do you attend confucianist or islam serv ices? Never 08/15/2021 Do you belong to any clubs o r organizations such as confucianist groups, unions, fraternal or athletic groups, or [...] and heating? Not hard at all 08/15/2021 [facility] of Occupat ional Health - Occupational Stress [...] place to sleep or slept in a long-term (including now)? No 08/15/2021 Nutrition Answer Date [...] Sex Assigned at Male 08/15/2021 10:21 AM SHELLACKER Gender Identity Male 08/15/2021 10:21 AM SHELLACKER Sexual Orientation Straight 08/15/2021 10 :21 AM SHELLACKER documented as of this encounter Plan of Treatment Not on file documented as of this encounter Procedures Procedure Name Priority Date/Time Associated Diagnosis Comments OPTICAL COHERENCE TOMOGRAPHY - MACULA/RETINA - OU - BOTH EYES Routine 11/28/2022 9:03 AM CDT Vogt Koyanagi Syndrome Bilateral documented in this encounter Results * Optical Coherence Tomography - Macula/Retina - OU - Both Eyes (11/28/2022 9:03 AM CDT) CMT L Microns 339 um OPH THALMOLOGY IMAGING EXAM CMT R Microns 278 um OPH THALMOLOGY IMAGING EXAM Narrative OPHTHALMOLOGY IMAGING EXAM - 11/28/2022 9:16 AM CDT Right Eye Reliability was good. OCT device used was Spectralis . Scan locations included macula. Findings include epiretinal membrane. Central macular thickness 278 um. Left Eye Reliability was good. OCT device used was Spectralis . Scan locations included macula. Findings include epiretinal membrane. Central macular thickness 339 um. Notes RIGHT - normal macular thickness except relative thickening in nasal paramacular region - overall stable thickness vs previous. intact foveal depression and retinal layers except the interdigitation zone might be less robust than normal. There are a few small angular spaces in the outer nuclear layer in the perifoveal region, allison superior to the fovea - possibly related to epiretinal membrane which is relatively thick. No subretinal fluid. The choroid is not thickened; the previous focal area of increased thickening in the superior macula has not recurred. Posterior hyaloid is attached. LEFT - stable thickening in superior paramacular region due to epiretinal membrane contraction - but the heat map is overall stable. intact foveal depression and retinal layers except the interdigitation zone might be less robust than normal. no intra or subretinal fluid. The choroid is not thickened; it is stable vs previous. Sarah Dick M.D. OPHTH TOMOGRAPHY OPHTHALMOLOGY IMAGING EXAM documented in this encounter Visit Diagnoses Diagnosis Vogt Koyanagi Syndrome Bilateral documented in this encounter
--- OUTSIDE RECORDS SUMMARY | 2023-09-27 16:40 | XMS_ITS | Encounter Summary ---
Author Name Unknown Organization [facility] Address [address] [place] [address] Care Team Providers Care Pipe Organ Technician Name Role Phone Unavailable Primary Care Provider Unavailabl e Reason for Referral * Outpatient (Routine) - Closed Specialty Diagnoses / Procedures Referred By Don hall Referred To Contact Rheumatology Diagnoses dx Antione Ordaz M.D. [address] [place] [address] [facility] Referral ID Status Reason Start Date Expiration Date Visits Re quested Visits Authorized [id number] Closed 09/04/2022 10/16/2026 1 1 PRESIDENT BUSINESS & CORPORATE DEVELOPMENT Encounter Details Date Type Department Care Team (Late st Contact Info) Description 10/17/2022 Orders Only Division of Rheumatology in [place], [place] [address] [place] [phone] Antione Ordaz M.D. [address] [place] [phone] Vogt Koyanagi Syndrome Bilateral (Primary Dx); Hepatitis B Personal History Social History Tobacco Use Types Packs/Day Years [...] week 08/15/2021 How often do you attend orthodoxy or druze serv ices? Never 08/15/2021 Do you belong to any clubs o r organizations such as orthodoxy groups, unions, fraternal or athletic groups, or [...] and heating? Not hard at all 08/15/2021 [facility] of Occupat ional Health - Occupational [...] Sex Assigned at Male 08/15/2021 10:21 AM VICE PRESIDENT BUSINESS & CORPORATE DEVELOPMENT Gender Identity Male 08/15/2021 10:21 AM VICE PRESIDENT BUSINESS & CORPORATE DEVELOPMENT Sexual Orientation Straight 08/15/2021 10 :21 AM VICE PRESIDENT BUSINESS & CORPORATE DEVELOPMENT documented as of this encounter Plan of Treatment Scheduled Referrals Name Type Priority Associated Diagnoses Order Schedule Rheumatology office visit (clinic) Outpatient Referral Routine Expected: 01/14/2023 (Approximate), Expires: 01/15/2024 documented as of this encounter Visit Diagnoses Diagnosis 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
--- OUTSIDE RECORDS SUMMARY | 2023-09-27 16:40 | XMS_ITS | Encounter Summary ---
Author Name Unknown Organization [facility] Address [address] [place] [address] Care Team Providers Care Screen Printer Helper Name Role Phone Unavailable Primary Care Provider Unavailabl e Reason for Visit * Reason Comments Med Refill Encounter Details Date Type Department Care Team (Late st Contact Info) Description 10/12/2022 Refill Division of Rheumatology in [place], [place] [address] [place] [address] Antione Ordaz M.D. [address] [place] [phone] Med Refill Social History Tobacco Use Types [...] How often do you attend orthodoxy or sabianism serv ices? Never 08/15/2021 Do [...] and heating? Not hard at all 08/15/2021 [facility] of Occupat ional Health - Occupational Stress [...] place to sleep or slept in a [facility] (including now)? No 08/15/2021 Nutrition Answer Date [...] Sex Assigned at Male 08/15/2021 10:21 AM SCOREBOARD OPERATOR Gender Identity Male 08/15/2021 10:21 AM SCOREBOARD OPERATOR Sexual Orientation Straight 08/15/2021 10 :21 AM SCOREBOARD OPERATOR documented as of this encounter Miscellaneous Notes * Telephone Encounter - Bianca Corcoran RJaquan. - 10/17/2022 10:22 AM SCOREBOARD OPERATOR Prescription renewal request for mycophenolate mofetil (Cellcept) received from pharmacy. HISTORY OF PRESENT ILLNESS Last Rheum visit: 08/19/2021 with Antione Ordaz MD Future office visit: not ordered Last monitoring labs/eye exam: 03/10/22: outside protocol parameters. Needs updated labs Prescription request matches current plan of care. Prescription request matches a current prescription in the Medication List. Exclusion criteria: None ASSESSMENT/PLAN Prescription request pended for provider review due to missing monitoring labs. 30 day supply pended. EBOARD OPERATOR documented in this encounter Plan of Treatment Not on file documented as of this encounter Visit Diagnoses Diagnosis Vogt Koyanagi Syndrome Bilateral documented in this encounter
--- OUTSIDE RECORDS SUMMARY | 2023-09-27 16:40 | XMS_ITS | Encounter Summary ---
Author Name Unknown Organization [facility] Address [address] [place] [address] Care Team Providers Care Biologics Specialist Name Role Phone Unavailable Primary Care Provider Unavailabl e Reason for Visit * Reason Onset Date Comments Lab Monitoring 11/23/2022 Collected 3 Encounter Details Date Type Department Care Team (Latest Contact Info) Description 11/23/2022 Clinical Communication Division of Rheumatology in [place], [place] [address] [place] [address] Antione Ordaz M.D. [address] [place] [address] Lab Monitoring (Collected 11/22/22) Social History Tobacco Use Types Packs/Day Years [...] week 08/15/2021 How often do you attend adventist or presybeterian serv ices? Never 08/15/2021 Do you belong to any clubs o r organizations such as adventist groups, unions, fraternal or athletic groups, or [...] and heating? Not hard at all 08/15/2021 [facility] [place] of Occupat ional Health - Occupational Stress [...] place to sleep or slept in a assisted (including now)? No 08/15/2021 Nutrition Answer Date [...] Sex Assigned at Male 08/15/2021 10:21 AM HIDE DYER Gender Identity Male 08/15/2021 10:21 AM HIDE DYER Sexual Orientation Straight 08/15/2021 10 :21 AM HIDE DYER documented as of this encounter Miscellaneous Notes * Telephone Encounter - Soha Kaur L.P.N. - 11/23/2022 4:50 PM CDT ASSESSMENT Rheumatology monitoring labs completed at an external lab on 11/22/2022 were reviewed per outside lab reference ranges. [...] Diagnosis Comments CBC WITH DIFFERENTIAL, B Routine 11/22/2022 documented in this encounter Results * CBC with Differential, Blood (11/22/2022) EXT Platelet Count 272 140 - 440 [facility] EXT Neutrophils 3.83 1.7 - 7 [facility] EXT Hemoglobin 14.4 13.5 - 17.5 [facility] EXT White Blood Cell (WBC) Count 6.5 4.5 - 11.0 [facility] Blood (Blood, Venous) Antione Ordaz M.D. LAB BLOOD ADD-ON [facility] [address] [place] [address] documented in this encounter Visit Diagnoses Not on filedocumented in this encounter
--- OUTSIDE RECORDS SUMMARY | 2023-09-27 16:40 | XMS_ITS | Encounter Summary ---
Author Name Unknown Organization [facility] Address [address] [place] [address] Care Team Providers Care Americanization Teacher Name Role Phone Unavailable Primary Care Provider Unavailabl e Reason for Referral * Outpatient (Routine) - Closed Specialty Diagnoses / Procedures Referred By Don hall Referred To Contact Ophthalmology Diagnoses Vogt Koyanagi Syndrome Bilateral Sarah Dick M.D. [address] [place] [address] [facility] Referral ID Status Reason Start Date Expiration Date Visits Re quested Visits Authorized [id number] Closed 04/20/2020 05/20/2035 1 1 Reason for Visit * Outpatient (Routine) - Closed Specialty Diagnoses / Procedures Referred By Don hall Referred To Contact Ophthalmology Diagnoses ov Sarah Dick M.D. [address] [place] [address] [facility] Referral ID Status Reason Start Date Expiration Date Visits Re quested Visits Authorized [id number] Closed 08/12/2022 08/11/2025 1 1 Encounter Details Date Type Department Care Team (Latest Contact Info) Description 11/28/2022 9:00 AM CDT Office Visit Department of Ophthalmology in [place], [place] [address] [place] [phone] Sarah Dick M.D. [address] [place] [address] Vogt Koyanagi Syndrome Bilateral (Primary Dx) Social History Tobacco Use Types Packs/Day Years [...] week 08/15/2021 How often do you attend latter day or spiritism serv ices? Never 08/15/2021 Do you belong to any clubs o r organizations such as latter day groups, unions, fraternal or athletic groups, or [...] and heating? Not hard at all 08/15/2021 [facility] [place] of Occupat ional Health - Occupational Stress [...] place to sleep or slept in a intermediate (including now)? No 08/15/2021 Nutrition Answer Date [...] Sex Assigned at Male 08/15/2021 10:21 AM GOLF COURSE PATROLLER Gender Identity Male 08/15/2021 10:21 AM GOLF COURSE PATROLLER Sexual Orientation Straight 08/15/2021 10 :21 AM GOLF COURSE PATROLLER documented as of this encounter Progress Notes * Sarah Dick M.D. 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 He is adopted, Mother is [place], father of ancestry His symptoms started when [...] vision. He had a regular appointment with [facility] for a check up - called for an earlier appointment. Saw Dr. Shahid 2-3 days after that. He did not have any redness or light sensitivity at that time. 02/18/20 - aviation maintenance technician Dr. Fifi Shahid at [facility] in [place]. He had had red eyes for 2-3 [...] AST slightly elevated.) He was referred to environmental air specialist Dr. Ledesma in [place]. On 02/19/20, he saw Dr. Ledesma who [...] folds. 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 He was admitted for [...] and macular serous fluid were also resolving. Legislative Analyst Dr. Nancy Meeks - 02/28/20. He was [...] as evaluation with ENT and rheumatology at [place]. Subsequently, he did increase prednisone to 20mg x 2 wks, 15 mg x 2wks, then 10 mg. The tinnitus isresolved, he is not sure if the hearing loss has improved. The most recent telemedicine visit with Dr. Meeks was 05/22/20. PMH Gluten sensitivity, lactose intolerance. 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 #2 status post LASIK (2000) #3 Positive hepatitis B core antibody CLINICAL COURSE FIRST EVALUATION WITH [facility] - telemedicine due to S quarantine - 07/06/20 His current ocular symptoms [...] the testing and imaging suggests that the Wrrr-Qmidikgm-Vixpsi syndrome uveitis is currently controlled. It sounds [...] systemic corticosteroid sparing medication improves outcomes in Rbef-Phhwabxt-Qorutk syndrome uveitis by lowering the risk of [...] His is on a Facebook page for Unmy-Thtqiwgj-Irkrlg syndrome - wondering which medication he should take. They would like to consolidate care here with specialists who have familiarity with Aeum-Nqebmtzh-Fvfsco syndrome. Therefore, I will refer him to [...] the literature reporting efficacy of adalimumab in Ztwd-Bnbqjqlt-Beklmj syndrome. 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 (The headache related to Wdps-Qsxdoayn-Kipqyn syndrome is different than previous tension headaches.) [...] illnesses/infections He had labs on Monday through [facility]. (results not visible in Epic; most recent [...] blurred vision and other dry eye symptoms. TODAY - 11/28/22 He had monitoring labs done locally [...] IMAGING [facility] with correction 20/25 and 20/30 [facility] [...] thickness is stable in both eyes. PLAN No recurrent/increased inflammation. 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 No need to restart prednisolone drops or PO prednisone. Continue the current doses of CellCept. He will be due for repeat monitoring labs in 2-3 months. Use Bio True preservative free artificial tears for blurred vision and other dry eye symptoms. Follow up in early February 2023 (02/06/23 8:30 am) with repeat macula OCT Local PCP: Dr. Rafaela Collins Ophth: Dr. Zelaya Rheum: Dr. Nancy Meeks (in [facility]) now Dr. Ordaz ENT Dr. 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
--- NOTE | 2023-09-27 18:57 | PC.NURSE ---
Hat and cup provided zuleima pt with instrctuion to get stool sample and bring it back to front desk administrator when complete. SO at BS and supportive. Pt resting quietly drinking fluids with out c/o or requests. Dr Bull had just been in [facility] plans of D/C
[2023-09-27 22:37] LABS: C.Difficile Negative (Negative); CDIFFEPI 027 PRESUMPTIVE NEGATIVE (Negative)
== END 2023-09-27 19:11 | disposition home or self-care (01) ==
PROVIDERS: Emergency Provider Emergency Medicine; PCP Internal Medicine
DX: K92.1 Melena (principal); R10.9 Unspecified abdominal pain
CPT/HCPCS: 36415; 74177; 80053; 83690; 85025; 87045; 87046; 87077; 87427; 87493; 93005; 99284; 99285; Q9967

== ENCOUNTER 2023-10-13 08:05 | Outpatient (CLI) | payer OTHER, SELFPAY ==
--- OUTSIDE RECORDS SUMMARY | 2023-10-13 08:08 | XMS_ITS | Encounter Summary ---
Author Name Unknown Organization [facility] Address [address] [place] [address] Care Team Providers Care Traveling Storekeeper Name Role Phone Elsewhere, Pcp Primary Care Provider Unavailabl e Reason for Visit * Reason Onset Date Comments Med Refill Order Clarification 05/03/2023 QTY still no t right Encounter Details Date Type Department Care Team (Late st Contact Info) Description 05/03/2023 Refill Division of Rheumatology in [place], [place] [address] [place] [address] Christofer England, SCHEDULING ANALYST, C.N.P. [address] [place] [address] Med Refill; Order Clarification (QTY still not [...] week 08/15/2021 How often do you attend yazdanism or jew serv ices? Never 08/15/2021 Do you belong to any clubs o r organizations such as yazdanism groups, unions, fraternal or athletic groups, or [...] and heating? Not hard at all 04/07/2023 [facility] [place] of Occupat ional Health - Occupational Stress [...] your living situation today? [facility] 04/07/2023 Education Answer Date Recorded What is the highest level of school you have completed or the highest degree you have received? Professional school degree (e.g., MD, DDS, DVM, EFREM) 07/16/2020 Sex and Gender Information Value Date Recorded Sex Assigned at Male 08/15/2021 10:21 AM MEDICAL SOCIAL CONSULTANT Gender Identity Male 08/15/2021 10:21 AM MEDICAL SOCIAL CONSULTANT Sexual Orientation Straight 08/15/2021 10 :21 AM MEDICAL SOCIAL CONSULTANT documented as of this encounter Miscellaneous Notes * Addendum Note - Kassidy Liang R.N. - 05/23/2023 1:02 PM CDTAddended by: KASSIDY LIANG on: 05/23/2023 01:02 PM Modules accepted: Orders * Telephone Encounter - Christofer England APRN, C.N.P. - 05/03/2023 12:36 PM CDT Updated rx sent. documented in this encounter Plan of Treatment Upcoming Encounters Date Type Department Care Team (Late st Contact Info) Description 11/29/2023 2:45 PM CDT Ancillary Procedure Department of Ophthalmology in [place], [place] [address] [place] [phone] Sarah Dick M.D. [address] [place] [phone] 11/29/2023 3:20 PM CDT Ancillary Procedure Department of Ophthalmology in [place], [place] [address] [place] [phone] Sarah Dick M.D. [address] [place] [phone] 11/29/2023 3:30 PM CDT Office Visit Department of Ophthalmology in [place], [place] [address] [place] [phone] Sarah Dick M.D. [address] [place] [phone] documented as of this encounter Visit Diagnoses Diagnosis Vogt Koyanagi Syndrome Bilateral documented in this encounter Care Teams Traveling Storekeeper Relationship Specialty Start Date End Date Elsewhere, Pcp PCP - General Internal Medicine 04/13/23 documented as of this encounter
--- OUTSIDE RECORDS SUMMARY | 2023-10-13 08:08 | XMS_ITS | Encounter Summary ---
Author Name Unknown Organization [facility] Address [address] [place] [address] Care Team Providers Care Churn Driller Helper Name Role Phone Elsewhere, Pcp Primary Care Provider Unavailabl e Encounter Details Date Type Department Care Team (Latest Contact Info) Description 07/06/2023 8:10 AM CDT Ancillary Procedure Department of Ophthalmology in [place], [place] [address] [place] [address] Sarah Dick M.D. [address] [place] [phone] Vogt Koyanagi Syndrome Bilateral; Membrane Macula Epiretinal [...] week 08/15/2021 How often do you attend protestant or taoist serv ices? Never 08/15/2021 Do you belong to any clubs o r organizations such as protestant groups, unions, fraternal or athletic groups, or [...] and heating? Not hard at all 04/07/2023 [facility] - Occupational Stress Questionnaire Answer Date [...] your living situation today? I have a [facility] place to live 04/07/2023 Education Answer Date Recorded What is the highest level of school you have completed or the highest degree you have received? Professional school degree (e.g., MD, DDS, DVM, EFREM) 07/16/2020 Sex and Gender Information Value Date Recorded Sex Assigned at Male 08/15/2021 10:21 AM FLOOD CONTROL ENGINEER Gender Identity Male 08/15/2021 10:21 AM FLOOD CONTROL ENGINEER Sexual Orientation Straight 08/15/2021 10 :21 AM FLOOD CONTROL ENGINEER documented as of this encounter Plan of Treatment Upcoming Encounters Date Type Department Care Team (Late st Contact Info) Description 11/29/2023 2:45 PM CDT Ancillary Procedure Department of Ophthalmology in [place], [place] [address] [place] [address] Sarah Dick M.D. [address] [place] [phone] 11/29/2023 3:20 PM CDT Ancillary Procedure Department of Ophthalmology in [place], [place] [address] [place] [phone] Sarah Dick M.D. [address] [place] [address] 11/29/2023 3:30 PM CDT Office Visit Department of Ophthalmology in [place], [place] [address] [place] [address] Sarah Dick M.D. [address] [place] [address] documented as of this encounter Procedures Procedure [...] OPHTHALMOLOGY IMAGING EXAM - 07/12/2023 10:57 AM FLOOD CONTROL ENGINEER Right Eye Reliability was good. OCT device [...] Bilateral documented in this encounter Care Teams Churn Driller Helper Relationship Specialty Start Date End Date Elsewhere, Pcp PCP - General Internal Medicine 04/13/23 documented as of this encounter
--- OUTSIDE RECORDS SUMMARY | 2023-10-13 08:08 | XMS_ITS | Encounter Summary ---
Author Name Unknown Organization [facility] Address [address] [place] [address] Care Team Providers Care Spinner Hydraulic Name Role Phone Elsewhere, Pcp Primary Care [...] week 08/15/2021 How often do you attend hindu or mu-ism serv ices? Never 08/15/2021 Do you belong to any clubs o r organizations such as hindu groups, unions, fraternal or athletic groups, or [...] and heating? Not hard at all 04/07/2023 [facility] Occupat ional Health - Occupational Stress [...] your living situation today? I have a [facility] place to live 04/07/2023 Education Answer Date Recorded What is the highest level of school you have completed or the highest degree you have received? Professional school degree (e.g., MD, DDS, DVM, EFREM) 07/16/2020 Sex and Gender Information Value Date Recorded Sex Assigned at Male 08/15/2021 10:21 AM FORMER HAND Gender Identity Male 08/15/2021 10:21 AM FORMER HAND Sexual Orientation Straight 08/15/2021 10 :21 AM FORMER HAND documented as of this encounter Plan of Treatment Upcoming Encounters Date Type Department Care Team (Late st Contact Info) Description 11/29/2023 2:45 PM CDT Ancillary Procedure Department of Ophthalmology in [place], [place] [address] [place] [phone] Sarah Dick M.D. [address] [place] [phone] 11/29/2023 3:20 PM CDT Ancillary Procedure Department of Ophthalmology in [place], [place] [address] [place] [phone] Sarah Dick M.D. [address] [place] [phone] 11/29/2023 3:30 PM CDT Office Visit Department of Ophthalmology in [place], [place] [address] [place] [address] Sarah Dick M.D. [address] [place] [phone] documented as of this encounter Procedures Procedure [...] on filedocumented in this encounter Care Teams Spinner Hydraulic Relationship Specialty Start Date End Date Elsewhere, Pcp PCP - General Internal Medicine 04/13/23 documented as of this encounter
--- OUTSIDE RECORDS SUMMARY | 2023-10-13 08:08 | XMS_ITS | Clinical Summary ---
Author Name Unknown Organization [facility] Address [address] [place] [address] Care Team Providers Care Associate Accountant Name Role Phone Elsewhere, Pcp Primary Care Provider Unavailabl e Source Comments Patient records contain information from all sites at [facility]. For routine questions regarding patient records, call [phone] during business hours, M-F 8:00 AM - 5:00 PM Central Time. Record requests for emergency care only can be directed to [phone] at any time.[facility] Allergies Active Allergy Reactions Criticality Noted Date [...] Encounters Date Type Department Care Team Description 09/28/2023 Clinical Communication Department of Ophthalmology in [place], [place] [address] [facility] [place] [address] Provider, Unknown from Last 3 Months Immunizations Name Administration [...] Sister Relation Name Status Comments Brother Father Edis Lindo Father's Brother Father's Sister Maternal Grandfather [...] week 08/15/2021 How often do you attend zoroastrian or methodist serv ices? Never 08/15/2021 Do you belong to any clubs o r organizations such as zoroastrian groups, unions, fraternal or athletic groups, or [...] and heating? Not hard at all 04/07/2023 [facility] of Occupat ional [facility] - Occupational Stress Questionnaire Answer Date [...] your living situation today? I have a [facility] place to live 04/07/2023 Education Answer Date Recorded What is the highest level of school you have completed or the highest degree you have received? Professional school degree (e.g., MD, DDS, DVM, EFREM) 07/16/2020 Sex and Gender Information Value Date Recorded Sex Assigned at Male 08/15/2021 10:21 AM MAPPER Gender Identity Male 08/15/2021 10:21 AM MAPPER Sexual Orientation Straight 08/15/2021 10 :21 AM MAPPER Last Filed Vital Signs Vital Sign Reading [...] 04/14/2023 9:34 AM CDT Plan of Treatment Upcoming Encounters Date Type Department Care Team (Late st Contact Info) Description 11/29/2023 2:45 PM CDT Ancillary Procedure Department of Ophthalmology in [place], [place] [address] [place] [phone] Sarah Dick M.D. 200 [place] [phone] 11/29/2023 3:20 PM CDT Ancillary Procedure Department of Ophthalmology in [place], [place] [address] [place] [phone] Sarah Dick M.D. 200 [place] [phone] 11/29/2023 3:30 PM CDT Office Visit Department of Ophthalmology in [place], [place] [address] [place] [address] Sarah Dick M.D. [address] [place] [phone] Health Maintenance Due Date Last Done Comments [...] on patient's age to complete this topic Care Teams Associate Accountant Relationship Specialty Start Date End Date Elsewhere, Pcp PCP - General Internal Medicine 04/13/23
--- OUTSIDE RECORDS SUMMARY | 2023-10-13 08:08 | XMS_ITS | Encounter Summary ---
Author Name Unknown Organization [facility] Address [address] [place] [address] Care Team Providers Care Director Security Risk Management Name Role Phone Elsewhere, Pcp Primary Care Provider Unavailabl e Encounter Details Date Type Department Care Team (Late st Contact Info) Description 05/01/2023 Orders Only Division of Rheumatology in [place], [place] [address] [place] [address] Christofer England, MANAGER PLACEMENT, C.N.P. [address] [place] [address] Vogt Koyanagi Syndrome Bilateral Social History Tobacco [...] week 08/15/2021 How often do you attend buddhist or quaker serv ices? Never 08/15/2021 Do you belong to any clubs o r organizations such as buddhist groups, unions, fraternal or athletic groups, or [...] at all 04/07/2023 [facility] Occupat ional Health - [...] your living situation today? I have a [facility] place to live 04/07/2023 Education Answer Date Recorded What is the highest level of school you have completed or the highest degree you have received? Professional school degree (e.g., MD, DDS, DVM, EFREM) 07/16/2020 Sex and Gender Information Value Date Recorded Sex Assigned at Male 08/15/2021 10:21 AM ELECTRICAL ENGINEERING INTERN Gender Identity Male 08/15/2021 10:21 AM ELECTRICAL ENGINEERING INTERN Sexual Orientation Straight 08/15/2021 10 :21 AM ELECTRICAL ENGINEERING INTERN documented as of this encounter Plan of Treatment Upcoming Encounters Date Type Department Care Team (Late st Contact Info) Description 11/29/2023 2:45 PM CDT Ancillary Procedure Department of Ophthalmology in [place], [place] [address] [place] [phone] Sarah Dick M.D. [address] [place] [phone] 11/29/2023 3:20 PM CDT Ancillary Procedure Department of Ophthalmology in [place], [place] [address] [place] [phone] Sarah Dick M.D. [address] [place] [phone] 11/29/2023 3:30 PM CDT Office Visit Department of Ophthalmology in [place], [place] [address] [place] [address] Sarah Dick M.D. [address] [place] [address] documented as of this encounter Visit Diagnoses Diagnosis Vogt Koyanagi Syndrome Bilateral documented in this encounter Care Teams Director Security Risk Management Relationship Specialty Start Date End Date Elsewhere, Pcp PCP - General Internal Medicine 04/13/23 documented as of this encounter
--- OUTSIDE RECORDS SUMMARY | 2023-10-13 08:08 | XMS_ITS | Clinical Summary ---
Author Name Unknown Organization [facility] Address [place], [place] [address] Care Team Providers Care Lead Housekeeper Name Role Phone Rafaela Collins MD Primary Care Provider [phone] Allergies Active Allergy Reactions Criticality Noted Date [...] 04/09/2020 Active predniSONE (DELTASONE) 20 mg tabletIndications:V bar-Smmlgvqq-Qbjfxk syndrome of both eyes Take 1 to 2 tabs daily as directed in taper 120 tablet 1 04/23/2020 Active predniSONE (DELTASONE) 10 mg tabletIndications:V gex-Acwlbcvx-Nkxmki syndrome of both eyes,Sensorineural hearing loss (SNHL) of both ears Take 1-1/2 tabs daily x2 weeks then 1 tab daily 100 tablet 1 05/22/2020 Active pantoprazole (PROTONIX) 40 mg delayed-release tabletIndications:V job-Bpfqcfqh-Ppumwp syndrome of both eyes TAKE 1 TABLET BY MOUTH EVERY DAY 90 tablet 0 10/16/2020 Active Active Problems Problem Noted Date Diagnosed Date Lxhi-Fsgpaoeq-Jevmbb syndrome of both eyes 02/18 Acute headache [...] 6:33 PM 02/21/2020 2:35 PM Care Teams Lead Housekeeper Relationship Specialty Start Date End Date Rafaela Collins MD [address] [place] [address] PCP - General Internal Medicine 02/19/20
--- OUTSIDE RECORDS SUMMARY | 2023-10-13 08:08 | XMS_ITS | Referral Summary ---
Author Name Unknown Organization [facility] Address [address] [place] [address] Care Team Providers Care Flour Broker Name Role Phone Elsewhere, Pcp Primary Care Provider Unavailabl e Source Comments Patient records contain information from all sites at [facility]. For routine questions regarding patient records, call [phone] during business hours, M-F 8:00 AM - 5:00 PM Central Time. Record requests for emergency care only can be directed to [phone] at any time.[facility] Encounters Date Type Department Care Team Description 09/28/2023 Clinical Communication Department of Ophthalmology in [place], [place] [address] [place] [address] Provider, Unknown from Last 3 Months Allergies Active Allergy [...] How often do you attend evangelical or sabianism serv ices? Never 08/15/2021 Do [...] and heating? Not hard at all 04/07/2023 [facility] of Occupat ional [facility] - Occupational Stress Questionnaire Answer Date [...] Sex Assigned at Male 08/15/2021 10:21 AM WORK FORCE ADVISOR Gender Identity Male 08/15/2021 10:21 AM WORK FORCE ADVISOR Sexual Orientation Straight 08/15/2021 10 :21 AM WORK FORCE ADVISOR Last Filed Vital Signs Vital Sign Reading [...] CDT Ancillary Procedure Department of Ophthalmology in [place], [place] [address] [place] [phone] Sarah Dick M.D. [address] [place] [phone] 11/29/2023 3:20 PM CDT Ancillary Procedure Department of Ophthalmology in [place], [place] [address] [place] [phone] Sarah Dick M.D. [address] [place] [phone] 11/29/2023 3:30 PM CDT Office Visit Department of Ophthalmology in [place], [place] [address] [place] [phone] Sarah Dick M.D. [address] [place] [phone] Care Teams Flour Broker Relationship Specialty Start Date End Date Elsewhere, Pcp PCP - General Internal Medicine 04/13/23
--- OUTSIDE RECORDS SUMMARY | 2023-10-13 08:08 | XMS_ITS | Encounter Summary ---
Author Name Unknown Organization [facility] Address [address] [place] [address] Care Team Providers Care Smeller Name Role Phone Elsewhere, Pcp Primary Care Provider Unavailabl e Encounter Details Date Type Department Care Team (Latest Contact Info) Description 09/28/2023 Clinical Communication Department of Ophthalmology in [place], [place] [address] [place] [address] Provider, Unknown Social History Tobacco Use Types Packs/Day Years [...] week 08/15/2021 How often do you attend scientologist or tenriism serv ices? Never 08/15/2021 Do you belong to any clubs o r organizations such as scientologist groups, unions, fraternal or athletic groups, or [...] heating? Not hard at all 04/07/2023 [facility] of Occupat ional Health - [...] your living situation today? I have a [facility] place to live 04/07/2023 Education Answer Date Recorded What is the highest level of school you have completed or the highest degree you have received? Professional school degree (e.g., MD, DDS, DVM, EFREM) 07/16/2020 Sex and Gender Information Value Date Recorded Sex Assigned at Male 08/15/2021 10:21 AM PHOTOGRAPHY MANAGER Gender Identity Male 08/15/2021 10:21 AM PHOTOGRAPHY MANAGER Sexual Orientation Straight 08/15/2021 10 :21 AM PHOTOGRAPHY MANAGER documented as of this encounter Plan of Treatment Upcoming Encounters Date Type Department Care Team (Late st Contact Info) Description 11/29/2023 2:45 PM CDT Ancillary Procedure Department of Ophthalmology in [place], [place] [address] [place] [address] Sarah Dick M.D. [address] [place] [phone] 11/29/2023 3:20 PM CDT Ancillary Procedure Department of Ophthalmology in [place], [place] [address] [place] [phone] Sarah Dick M.D. [address] [place] [phone] 11/29/2023 3:30 PM CDT Office Visit Department of Ophthalmology in [place], [place] [address] [place] [address] Saarh Dick M.D. [address] [place] [address] documented as of this encounter Visit Diagnoses Not on filedocumented in this encounter Care Teams Smeller Relationship Specialty Start Date End Date Elsewhere, Pcp PCP - General Internal Medicine 04/13/23 documented as of this encounter
--- OUTSIDE RECORDS SUMMARY | 2023-10-13 08:08 | XMS_ITS ---
Author Name Unknown Organization [facility] Address [address] [place] [address] Care Team Providers Care Oral Surgery Physician Name Role Phone Unavailable Unavailable Unavailable Surgery Details Not on file Complications Check Surgery Details section. Procedure Estimated Blood Loss Check Surgery Details section. Procedure Findings Check Surgery Details section. Procedure Specimens Taken Check Surgery Details section.
--- OUTSIDE RECORDS SUMMARY | 2023-10-13 08:08 | XMS_ITS | Encounter Summary ---
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 [address] [place] [address] [facility] Referral ID Status Reason Start Date Expiration Date Visits Re quested Visits Authorized [id number] Closed 04/20/2020 05/20/2035 1 1 Encounter Details Date Type Department Care Team (Latest Contact Info) Description 07/06/2023 9:00 AM CDT Office Visit Department of Ophthalmology in [place], [place] [address] [place] [address] Sarah Dick M.D. [address] [place] [phone] Vogt Koyanagi Syndrome Bilateral (Primary Dx); Membrane [...] week 08/15/2021 How often do you attend taoist or anabaptist serv ices? Never 08/15/2021 Do you belong to any clubs o r organizations such as taoist groups, unions, fraternal or athletic groups, or [...] and heating? Not hard at all 04/07/2023 [facility] of Occupat ional [facility] - Occupational Stress Questionnaire Answer Date [...] your living situation today? I have a [facility] place to live 04/07/2023 Education Answer Date Recorded What is the highest level of school you have completed or the highest degree you have received? Professional school degree (e.g., MD, DDS, DVM, EFREM) 07/16/2020 Sex and Gender Information Value Date Recorded Sex Assigned at Male 08/15/2021 10:21 AM CLINICAL SERVICES CONSULTANT Gender Identity Male 08/15/2021 10:21 AM CLINICAL SERVICES CONSULTANT Sexual Orientation Straight 08/15/2021 10 :21 AM CLINICAL SERVICES CONSULTANT documented as of this encounter Progress Notes * Sarah Dick M.D. 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 He had a regular appointment with [facility] eye doctor for a check up - called for an earlier appointment. Saw Dr. Shahid 2-3 days after that. He did not have any redness or light sensitivity at that time. 02/18/20 - business operations coordinator Dr. Fifi Shahid at [facility] in [place]. He had had red eyes for 2-3 [...] AST slightly elevated.) He was referred to scale and skip car operator Dr. Ledesma in [place]. On 02/19/20, he saw Dr. Ledesma who [...] folds. 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 He was admitted for [...] and macular serous fluid were also resolving. Oil Derrick Operator Dr. Nancy Meeks - 02/28/20. He was [...] as evaluation with ENT and rheumatology at [place]. Subsequently, he did increase prednisone to 20mg x 2 wks, 15 mg x 2wks, then 10 mg. The tinnitus isresolved, he is not sure if the hearing loss has improved. The most recent telemedicine visit with Dr. Meeks was 05/22/20. PMH Gluten sensitivity, lactose intolerance. 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 It sounds [...] systemic corticosteroid sparing medication improves outcomes in Ptgy-Ilctadnq-Cvzsmn syndrome uveitis by lowering the risk of [...] His is on a Facebook page for Bgbh-Lpwjkriq-Zqvnaa syndrome - wondering which medication he should take. They would like to consolidate care here with specialists who have familiarity with Msfp-Jzpxiyvv-Olqmkz syndrome. Therefore, I will refer him to [...] the literature reporting efficacy of adalimumab in Trwb-Nfpdgzoh-Owckww syndrome. 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 (The headache related to Wbzp-Feeixmkp-Geyolt syndrome is different than previous tension headaches.) [...] illnesses/infections He had labs on Monday through [facility]. (results not visible in Epic; most recent [...] Dr. Zelaya Rheum: Dr. Nancy Meeks (in [facility]) now Dr. Ordaz ENT Dr. Cj Garnica documented in this encounter Plan of Treatment Upcoming Encounters Date Type Department Care Team (Late st Contact Info) Description 11/29/2023 2:45 PM CDT Ancillary Procedure Department of Ophthalmology in [address] [phone] Sarah Dick M.D. [address] [place] [phone] 11/29/2023 3:20 PM CDT Ancillary Procedure Department of Ophthalmology in [address] [phone] Sarah Dick M.D. [address] [place] [phone] 11/29/2023 3:30 PM CDT Office Visit Department of Ophthalmology in [address] [phone] Sarah Dick M.D. [address] [place] [phone] Scheduled Orders Name Type Priority Associated Diagnoses [...] Bilateral documented in this encounter Care Teams Electric Power Line Examiner Relationship Specialty Start Date End Date Elsewhere, Pcp PCP - General Internal Medicine 04/13/23 documented as of this encounter
--- OUTSIDE RECORDS SUMMARY | 2023-10-13 08:09 | XMS_ITS | Encounter Summary ---
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 [address] [place] [address] [facility] Referral ID Status Reason Start Date Expiration Date Visits Re quested Visits Authorized [id number] Closed 04/20/2020 05/20/2035 1 1 Reason for Visit * Outpatient (Routine) - Closed Specialty Diagnoses / Procedures Referred By Don hall Referred To Contact Ophthalmology Diagnoses Vogt Koyanagi Syndrome Bilateral Va, iCare, dilate, OCT, Optos fluorescein angiography, WMS Procedures OPH EST UVEITIS Sarah Dick M.D. [address] [place] [address] Sarah Dick M.D. [address] [place] [address] Referral ID Status Reason Start Date Expiration Date Visits Re quested Visits Authorized [id number] Closed 04/20/2020 05/20/2035 1 1 Encounter Details Date Type Department Care Team (Latest Contact Info) Description 04/27/2023 3:00 PM CDT Office Visit Department of Ophthalmology in [place], [place] [address] [place] [address] Sarah Dick M.D. [address] [place] [address] Vogt Koyanagi Syndrome Bilateral (Primary Dx); Membrane [...] week 08/15/2021 How often do you attend anabaptism or christian serv ices? Never 08/15/2021 Do you belong to any clubs o r organizations such as anabaptism groups, unions, fraternal or athletic groups, or [...] and heating? Not hard at all 04/07/2023 [facility] [place] of Occupat ional Health - Occupational Stress [...] Sex Assigned at Male 08/15/2021 10:21 AM SALT MINER Gender Identity Male 08/15/2021 10:21 AM SALT MINER Sexual Orientation Straight 08/15/2021 10 :21 AM SALT MINER documented as of this encounter Progress Notes * Sarah Dick M.D. 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 He is adopted, Mother is Yoruba, father of ancestry His symptoms started when [...] He had a regular appointment with [facility] eye doctor for a check up - called for an earlier appointment. Saw Dr. Shahid 2-3 days after that. He did not have any redness or light sensitivity at that time. 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 He had had red eyes for 2-3 [...] AST slightly elevated.) He was referred to tearoom host Dr. Ledesma in [place]. On 02/19/20, he saw Dr. Ledesma who [...] folds. 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 He was admitted for [...] and macular serous fluid were also resolving. Waist Presser Dr. Nancy Meeks - 02/28/20. He was [...] as evaluation with ENT and rheumatology at [place]. Subsequently, he did increase prednisone to 20mg x 2 wks, 15 mg x 2wks, then 10 mg. The tinnitus isresolved, he is not sure if the hearing loss has improved. The most recent telemedicine visit with Dr. Meeks was 05/22/20. PMH Gluten sensitivity, lactose intolerance. 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 It sounds [...] systemic corticosteroid sparing medication improves outcomes in Prva-Btozvlxo-Axeaym syndrome uveitis by lowering the risk of [...] His is on a Facebook page for Cdrw-Dhjnhdfb-Jbifar syndrome - wondering which medication he should take. They would like to consolidate care here with specialists who have familiarity with Abyr-Ddodteyj-Aonqee syndrome. Therefore, I will refer him to [...] the literature reporting efficacy of adalimumab in Rxva-Xduxceyk-Rzbprt syndrome. 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 (The headache related to Nphu-Izjocbia-Hwzzli syndrome is different than previous tension headaches.) [...] illnesses/infections He had labs on Monday through [facility] [place]. (results not visible in Epic; most recent [...] Dr. Zelaya Rheum: Dr. Nancy Meeks (in [facility]) now Dr. Orlin Garnica documented in this encounter Plan of Treatment Upcoming Encounters Date Type Department Care Team (Late st Contact Info) Description 11/29/2023 2:45 PM CDT Ancillary Procedure Department of Ophthalmology in [place], [place] [address] [place] [phone] Sarah Dick M.D. [address] [place] [phone] 11/29/2023 3:20 PM CDT Ancillary Procedure Department of Ophthalmology in [place], [place] [address] [place] [phone] Sarah Dick M.D. [address] [place] [phone] 11/29/2023 3:30 PM CDT Office Visit Department of Ophthalmology in [place], [place] [address] [place] [phone] Sarah Dick M.D. [address] [place] [phone] Scheduled Referrals Name Type Priority Associated Diagnoses [...] OPHTHALMOLOGY IMAGING EXAM - 07/12/2023 10:57 AM SALT MINER Right Eye Reliability was good. OCT device [...] Bilateral documented in this encounter Care Teams Litigator Relationship Specialty Start Date End Date Elsewhere, Pcp PCP - General Internal Medicine 04/13/23 documented as of this encounter
--- OUTSIDE RECORDS SUMMARY | 2023-10-13 08:09 | XMS_ITS | Encounter Summary ---
Author Name Unknown Organization [facility] Address [address] [place] [address] Care Team Providers Care Employment Counselor Name Role Phone Elsewhere, Pcp Primary Care Provider Unavailabl e Reason for Visit * Outpatient (Routine) - Closed Specialty Diagnoses / Procedures Referred By Don t Referred To Contact Ophthalmology Diagnoses Vogt Koyanagi Syndrome Bilateral Procedures OPTICAL COHERENCE TOMOGRAPHY - MACULA/RETINA - OU - BOTH EYES OPH TEST OCT Sarah Dick M.D. [address] [place] [address] Rst Oph Darfur [address] [place] [phone] Referral ID Status Reason Start Date Expiration Date Visits Re quested Visits Authorized [id number] Closed 04/20/2020 04/27/2025 3 3 Encounter Details Date Type Department Care Team (Latest Contact Info) Description 04/27/2023 2:00 PM CDT Ancillary Procedure Department of Ophthalmology in [place], [place] [address] [place] [address] Sarah Dick M.D. [address] [place] [address] Vogt Koyanagi Syndrome Bilateral Social [...] week 08/15/2021 How often do you attend mandaen or sabianism serv ices? Never 08/15/2021 Do you belong to any clubs o r organizations such as mandaen groups, unions, fraternal or athletic groups, or [...] and heating? Not hard at all 04/07/2023 [facility] [place] of Occupat ional Health - Occupational Stress [...] Sex Assigned at Male 08/15/2021 10:21 AM FRUIT AND VEGETABLE FACTORY WORKER Gender Identity Male 08/15/2021 10:21 AM FRUIT AND VEGETABLE FACTORY WORKER Sexual Orientation Straight 08/15/2021 10 :21 AM FRUIT AND VEGETABLE FACTORY WORKER documented as of this encounter Plan of Treatment Upcoming Encounters Date Type Department Care Team (Late st Contact Info) Description 11/29/2023 2:45 PM CDT Ancillary Procedure Department of Ophthalmology in [place], [place] [address] [place] [phone] Sarah Dick M.D. [address] [place] [phone] 11/29/2023 3:20 PM CDT Ancillary Procedure Department of Ophthalmology in [place], [place] [address] [place] [address] Sarah Dick M.D. [address] [place] [phone] 11/29/2023 3:30 PM CDT Office Visit Department of Ophthalmology in [place], [place] [address] [place] [phone] Sarah Dick M.D. [address] [place] [phone] documented as of this encounter Procedures Procedure [...] Bilateral documented in this encounter Care Teams Employment Counselor Relationship Specialty Start Date End Date Elsewhere, Pcp PCP - General Internal Medicine 04/13/23 documented as of this encounter
--- OUTSIDE RECORDS SUMMARY | 2023-10-13 08:09 | XMS_ITS | Encounter Summary ---
Author Name Unknown Organization [facility] Address [address] [place] [address] Care Team Providers Care Space And Missile Defense Operations Name Role Phone Elsewhere, Pcp Primary Care Provider Unavailabl e Reason for Visit * Outpatient (Routine) - Closed Specialty Diagnoses / Procedures Referred By Don hall Referred To Contact Ophthalmology Diagnoses Vogt Koyanagi Syndrome Bilateral Procedures OPTICAL COHERENCE TOMOGRAPHY - MACULA/RETINA - OU - BOTH EYES OPH TEST OCT Sarah Dick M.D. [address] [place] [address] Rst Oph [place] [address] [place] [phone] Referral ID Status Reason Start Date Expiration Date Visits Re quested Visits Authorized [id number] Closed 04/20/2020 04/27/2025 3 3 Encounter Details Date Type Department Care Team (Latest Contact Info) Description 04/27/2023 2:15 PM CDT Procedure visit Department of Ophthalmology in [place], [place] [address] [place] [address] Sarah Dick M.D. [address] [place] [phone] Sinan Desir Vogt Koyanagi Syndrome [...] week 08/15/2021 How often do you attend lutheran or nondenominational serv ices? Never 08/15/2021 Do you belong to any clubs o r organizations such as lutheran groups, unions, fraternal or athletic groups, or [...] and heating? Not hard at all 04/07/2023 [facility] [place] of Occupat ional Health - Occupational Stress [...] Sex Assigned at Male 08/15/2021 10:21 AM CHAIN MAKER MACHINE Gender Identity Male 08/15/2021 10:21 AM CHAIN MAKER MACHINE Sexual Orientation Straight 08/15/2021 10 :21 AM CHAIN MAKER MACHINE documented as of this encounter Progress Notes [...] CDT Ancillary Procedure Department of Ophthalmology in [place], [place] [address] [place] [phone] Sarah Dick M.D. [address] [place] [phone] 11/29/2023 3:20 PM CDT Ancillary Procedure Department of Ophthalmology in [place], [place] [address] [place] [phone] Sarah Dick M.D. [address] [place] [phone] 11/29/2023 3:30 PM CDT Office Visit Department of Ophthalmology in [place], [place] [address] [place] [phone] Sarah Dick M.D. [address] [place] [phone] documented as of this encounter Procedures Procedure [...] mg documented in this encounter Care Teams Space And Missile Defense Operations Relationship Specialty Start Date End Date Elsewhere, Pcp PCP - General Internal Medicine 04/13/23 documented as of this encounter
--- OUTSIDE RECORDS SUMMARY | 2023-10-13 08:09 | XMS_ITS | Encounter Summary ---
Author Name Unknown Organization [facility] Address [address] [place] [address] Care Team Providers Care Fish And Game Club Manager Name Role Phone Elsewhere, Pcp Primary [...] week 08/15/2021 How often do you attend yarsanism or mu-ism serv ices? Never 08/15/2021 Do you belong to any clubs o r organizations such as yarsanism groups, unions, fraternal or athletic groups, or [...] and heating? Not hard at all 04/07/2023 [facility] [place] of Occupat ional Health - Occupational Stress [...] your living situation today? I have a [facility] place to live 04/07/2023 Education Answer Date Recorded What is the highest level of school you have completed or the highest degree you have received? Professional school degree (e.g., MD, DDS, DVM, EFREM) 07/16/2020 Sex and Gender Information Value Date Recorded Sex Assigned at Male 08/15/2021 10:21 AM RV REPAIR TECHNICIAN Gender Identity Male 08/15/2021 10:21 AM RV REPAIR TECHNICIAN Sexual Orientation Straight 08/15/2021 10 :21 AM RV REPAIR TECHNICIAN documented as of this encounter Plan of Treatment Upcoming Encounters Date Type Department Care Team (Late st Contact Info) Description 11/29/2023 2:45 PM CDT Ancillary Procedure Department of Ophthalmology in [place], [place] [address] [place] [phone] Sarah Dick M.D. [address] [place] [phone] 11/29/2023 3:20 PM CDT Ancillary Procedure Department of Ophthalmology in [place], [place] [address] [place] [phone] Sarah Dick M.D. [address] [place] [phone] 11/29/2023 3:30 PM CDT Office Visit Department of Ophthalmology in [place], [place] [address] [place] [address] Sarah Dick M.D. [address] [place] [phone] documented as of this encounter Procedures Procedure [...] on filedocumented in this encounter Care Teams Fish And Game Club Manager Relationship Specialty Start Date End Date Elsewhere, Pcp PCP - General Internal Medicine 04/13/23 documented as of this encounter
--- OUTSIDE RECORDS SUMMARY | 2023-10-13 08:09 | XMS_ITS | Encounter Summary ---
Author Name Unknown Organization [facility] Address [address] [place] [address] Care Team Providers Care Manager Six Sigma Name Role Phone Elsewhere, Pcp Primary Care Provider Unavailabl e Reason for Visit * Reason Onset Date Comments Pre-visit Intake 04/13/2023 Encounter Details Date Type Department Care Team (Latest Contact Info) Description 04/13/2023 8:45 AM CDT Clinical Communication Virtual Review in [place], [place] [address] [place], [place] [phone] Pre-visit Intake Social History Tobacco Use Types [...] How often do you attend buddhist or protestant serv ices? Never 08/15/2021 Do you belong [...] and heating? Not hard at all 04/07/2023 [facility] of Occupat ional Health - [...] your living situation today? I have a [facility] place to live 04/07/2023 Education Answer Date Recorded What is the highest level of school you have completed or the highest degree you have received? Professional school degree (e.g., , DDS, DVM, EFREM) 07/16/2020 Sex and Gender Information Value Date Recorded Sex Assigned at Male 08/15/2021 10:21 AM NUCLEAR POWER PLANT ENGINEER Gender Identity Male 08/15/2021 10:21 AM NUCLEAR POWER PLANT ENGINEER Sexual Orientation Straight 08/15/2021 10 :21 AM NUCLEAR POWER PLANT ENGINEER documented as of this encounter Plan of Treatment Upcoming Encounters Date Type Department Care Team (Late st Contact Info) Description 11/29/2023 2:45 PM CDT Ancillary Procedure Department of Ophthalmology in [place], [place] [address] [place] [phone] Sarah Dick M.D. [address] [place] [phone] 11/29/2023 3:20 PM CDT Ancillary Procedure Department of Ophthalmology in [place], [place] [address] [place] [phone] Sarah Dick M.D. [address] [place] [phone] 11/29/2023 3:30 PM CDT Office Visit Department of Ophthalmology in [place], [place] [address] [place] [address] Sarah Dick M.D. [address] [place] [address] documented as of this encounter Visit Diagnoses Not on filedocumented in this encounter Care Teams Manager Six Sigma Relationship Specialty Start Date End Date Elsewhere, Pcp PCP - General Internal Medicine 04/13/23 documented as of this encounter
--- OUTSIDE RECORDS SUMMARY | 2023-10-13 08:09 | XMS_ITS | Encounter Summary ---
Author Name Unknown Organization [facility] Address [address] [place] [address] Care Team Providers Care Laborer Turkey Farm Name Role Phone Elsewhere, Pcp Primary Care Provider Unavailabl e Reason for Visit * Outpatient (Routine) - Closed Specialty Diagnoses / Procedures Referred By Don t Referred To Contact Ophthalmology Diagnoses Vogt Koyanagi Syndrome Bilateral Procedures OPTICAL COHERENCE TOMOGRAPHY - MACULA/RETINA - OU - BOTH EYES OPH TEST OCT Sarah Dick M.D. [address] [place] [phone] Rst Oph [place] [address] [place] [phone] Referral ID Status Reason Start Date Expiration Date Visits Re quested Visits Authorized [id number] Closed 04/20/2020 04/27/2025 3 3 Encounter Details Date Type Department Care Team (Late st Contact Info) Description 04/27/2023 2:30 PM CDT Ancillary Procedure Department of Ophthalmology in [place], [place] [address] [place] [phone] Sarah Dick M.D. [address] [place] [phone] Social History Tobacco Use Types Packs/Day Years [...] How often do you attend gnosticist or christianity serv ices? Never 08/15/2021 Do you belong [...] and heating? Not hard at all 04/07/2023 [facility] [place] of Occupat ional Health - Occupational Stress [...] your living situation today? I have a [facility] place to live 04/07/2023 Education Answer Date Recorded What is the highest level of school you have completed or the highest degree you have received? Professional school degree (e.g., MD, DDS, DVM, EFREM) 07/16/2020 Sex and Gender Information Value Date Recorded Sex Assigned at Male 08/15/2021 10:21 AM COMMERCIAL MAKEUP ARTIST Gender Identity Male 08/15/2021 10:21 AM COMMERCIAL MAKEUP ARTIST Sexual Orientation Straight 08/15/2021 10 :21 AM COMMERCIAL MAKEUP ARTIST documented as of this encounter Plan of Treatment Upcoming Encounters Date Type Department Care Team (Late st Contact Info) Description 11/29/2023 2:45 PM CDT Ancillary Procedure Department of Ophthalmology in [place], [place] [address] [place] [address] Sarah Dick M.D. [address] [place] [phone] 11/29/2023 3:20 PM CDT Ancillary Procedure Department of Ophthalmology in [place], [place] [address] [place] [address] Sarah Dick M.D. [address] [place] [phone] 11/29/2023 3:30 PM CDT Office Visit Department of Ophthalmology in [place], [place] [address] [place] [address] Sarah Dick M.D. [address] [place] [phone] documented as of this encounter Procedures Procedure [...] on filedocumented in this encounter Care Teams Laborer Turkey Farm Relationship Specialty Start Date End Date Elsewhere, Pcp PCP - General Internal Medicine 04/13/23 documented as of this encounter
--- OUTSIDE RECORDS SUMMARY | 2023-10-13 08:09 | XMS_ITS | Encounter Summary ---
Author Name Unknown Organization [facility] Address [address] [place] [address] Care Team Providers Care Senior Principal Name Role Phone Elsewhere, Pcp Primary Care [...] TEST BLOOD Christofer England APRN, C.N.P. [address] [place] [phone] Rst Lab Rohi Cl C [address] [place] [phone] Referral ID Status Reason Start Date Expiration Date Visits Re quested Visits Authorized [id number] Closed 09/04/2022 05/20/2035 1 1 Encounter Details Date Type Department Care Team (Latest Contact Info) Description 04/14/2023 8:23 AM CDT - 04/14/2023 11:59 PM CDT Hospital Encounter Department of Laboratory Medicine and Pathology, [facility], in [place], [place] [address] [place] [phone] Christofer England APRN, C.N.P. [address] [place] [phone] Vogt Koyanagi Syndrome Bilateral Discharge Disposition: Home [...] week 08/15/2021 How often do you attend christian or anglican serv ices? Never 08/15/2021 Do you belong to any clubs o r organizations such as christian groups, unions, fraternal or athletic groups, or [...] and heating? Not hard at all 04/07/2023 [facility] [place] of Occupat ional Health - Occupational Stress [...] your living situation today? I have a [facility] place to live 04/07/2023 Education Answer Date Recorded What is the highest level of school you have completed or the highest degree you have received? Professional school degree (e.g., MD, DDS, DVM, EFREM) 07/16/2020 Sex and Gender Information Value Date Recorded Sex Assigned at Male 08/15/2021 10:21 AM PRODUCT MARKETER Gender Identity Male 08/15/2021 10:21 AM PRODUCT MARKETER Sexual Orientation Straight 08/15/2021 10 :21 AM PRODUCT MARKETER documented as of this encounter Medications at [...] CDT Ancillary Procedure Department of Ophthalmology in [place], [place] [address] [place] [phone] Sarah Dick M.D. [address] [place] [phone] 11/29/2023 3:20 PM CDT Ancillary Procedure Department of Ophthalmology in [place], [place] [address] [place] [phone] Sarah Dick M.D. [address] [place] [phone] 11/29/2023 3:30 PM CDT Office Visit Department of Ophthalmology in [place], [place] [address] [place] [phone] Sarah Dick M.D. [address] [place] [phone] documented as of this encounter Procedures Procedure [...] Undetected Undetected IU/mL 04/15/2023 1:34 PM CDT [facility] Comment: Result in log IU/mL is Undetected. ----ADDITIONAL INFORMATION---- The quantification range of this assay is 10 to 1,000,000,000 IU/mL (1.00 log to 9.00 log IU/mL). Testing was performed using the devaughn HBV test ([employer] with the devaughn 6800 System. Blood (Blood, Venous) 04/14/2023 8:36 AM CDT 04/14/2023 11:49 AM CDT Christofer England APRN, C.N.P. LAB MICROBIO LOGY - BLOOD ORDERABLES [facility] [address] [place] [address] [facility] [address] [place] [address] [place] [address] * Creatinine with Estimated GFR (04/14/2023 8:36 AM CDT) Creatinine 1.02 0.74 - 1.35 mg/dL 04/14/2023 9:30 AM CDT DTL Estimated GFR (eGFR) 86 >=60 mL/min/BSA 04/14/2023 9:30 AM CDT DTL Comment: Estimated GFR calculated using the 2020 CKD_EPI creatinine equation. Blood (Blood, Venous) 04/14/2023 8:36 AM CDT 04/14/2023 9:14 AM CDT Suzanne Kimble APRN.N.P. LAB BLOOD AD D-ON [facility] [address] [place] [id number] * AST (Aspartate Aminotransferase) (04/14/2023 8:36 AM CDT) Pathologist [facility] Aspartate Aminotransferase (AST), S 29 8 - 48 U/L 04/14/2023 9:30 AM CDT DTL Blood (Blood, Venous) 04/14/2023 8:36 AM CDT 04/14/2023 9:14 AM CDT Suzanne Kimble APRN.N.P. LAB BLOOD AD D-ON Performing Organization Address [facility] Co de Phone Number [facility] [address] [place] [address] * CBC with Differential, Blood (04/14/2023 8:36 AM CDT) [facility] Hemoglobin 14.8 13.2 - 16.6 g/dL [...] England APRN C.N.P. LAB BLOOD AD D-ON [facility] [address] [place] [address], [facility] DTL [facility] [address] [place] [address] DHPM [facility] [address] [place] [address] documented in this encounter Visit Diagnoses Diagnosis Vogt Koyanagi Syndrome Bilateral documented in this encounter Care Teams Senior Principal Relationship Specialty Start Date End Date Elsewhere, Pcp PCP - General Internal Medicine 04/13/23 documented as of this encounter
--- OUTSIDE RECORDS SUMMARY | 2023-10-13 08:09 | XMS_ITS | Encounter Summary ---
Author Name Unknown Organization [facility] Address [address] [place] [address] Care Team Providers Care Preparation Room Manager Name Role Phone Unavailable Primary Care Provider Unavailabl e Reason for Visit * Reason Onset Date Comments Lab Monitoring 03/30/2023 Labs collected o n 03/29/23 Encounter Details Date Type Department Care Team (Latest Contact Info) Description 03/30/2023 Clinical Communication Division of Rheumatology in [place], [place] [address] [place] [address] Antione Ordaz M.D. [address] [place] [address] Lab Monitoring (Labs collected on 03/29/23) Social [...] week 08/15/2021 How often do you attend caodaism or rastafari serv ices? Never 08/15/2021 Do you belong to any clubs o r organizations such as caodaism groups, unions, fraternal or athletic groups, or [...] and heating? Not hard at all 02/01/2023 [facility] of Occupat ional Health - Occupational Stress [...] your living situation today? I have a [facility] place to live 02/01/2023 Education Answer Date Recorded What is the highest level of school you have completed or the highest degree you have received? Professional school degree (e.g., MD, DDS, DVM, EFREM) 07/16/2020 Sex and Gender Information Value Date Recorded Sex Assigned at Male 08/15/2021 10:21 AM CONTINUOUS PICKLING LINE PICKLER HELPER Gender Identity Male 08/15/2021 10:21 AM CONTINUOUS PICKLING LINE PICKLER HELPER Sexual Orientation Straight 08/15/2021 10 :21 AM CONTINUOUS PICKLING LINE PICKLER HELPER documented as of this encounter Miscellaneous Notes [...] CDT Ancillary Procedure Department of Ophthalmology in [place], [place] [address] [place] [phone] Sarah Dick M.D. [address] [place] [phone] 11/29/2023 3:20 PM CDT Ancillary Procedure Department of Ophthalmology in [place], [place] [address] [place] [phone] Sarah Dick M.D. [address] [place] [phone] 11/29/2023 3:30 PM CDT Office Visit Department of Ophthalmology in [place], [place] [address] [place] [phone] Sarah Dick M.D. [address] [place] [phone] documented as of this encounter Visit Diagnoses Not on filedocumented in this encounter
--- OUTSIDE RECORDS SUMMARY | 2023-10-13 08:09 | XMS_ITS | Encounter Summary ---
Author Name Unknown Organization [facility] Address [address] [place] [address] Care Team Providers Care Boilermaker Name Role Phone Elsewhere, Pcp Primary Care [...] How often do you attend jainism or buddhist serv ices? Never 08/15/2021 Do you belong [...] and heating? Not hard at all 04/07/2023 [facility] of Occupat ional Health - Occupational Stress [...] your living situation today? I have a [facility] place to live 04/07/2023 Education Answer Date Recorded What is the highest level of school you have completed or the highest degree you have received? Professional school degree (e.g., , DDS, DVM, EFREM) 07/16/2020 Sex and Gender Information Value Date Recorded Sex Assigned at Male 08/15/2021 10:21 AM TRUSS ASSEMBLER Gender Identity Male 08/15/2021 10:21 AM TRUSS ASSEMBLER Sexual Orientation Straight 08/15/2021 10 :21 AM TRUSS ASSEMBLER documented as of this encounter Plan of Treatment Upcoming Encounters Date Type Department Care Team (Late st Contact Info) Description 11/29/2023 2:45 PM CDT Ancillary Procedure Department of Ophthalmology in [place], [place] [address] [place] [phone] Sarah Dick M.D. [address] [place] [phone] 11/29/2023 3:20 PM CDT Ancillary Procedure Department of Ophthalmology in [place], [place] [address] [place] [phone] Sarah Dick M.D. [address] [place] [phone] 11/29/2023 3:30 PM CDT Office Visit Department of Ophthalmology in [place], [place] [address] [place] [phone] Sarah Dick M.D. [address] [place] [address], [place] [phone] documented as of this encounter Procedures Procedure [...] on filedocumented in this encounter Care Teams Boilermaker Relationship Specialty Start Date End Date Elsewhere, Pcp PCP - General Internal Medicine 04/13/23 documented as of this encounter
--- OUTSIDE RECORDS SUMMARY | 2023-10-13 08:09 | XMS_ITS | Encounter Summary ---
Author Name Unknown Organization [facility] Address [address] [place] [address] Care Team Providers Care Process Control Programmer Name Role Phone Unavailable Primary Care Provider Unavailabl e Reason for Visit * Reason Onset Date Comments Lab Monitoring 03/29/2023 Collected 3 Encounter Details Date Type Department Care Team (Late st Contact Info) Description 03/29/2023 Refill Division of Rheumatology in [place], [place] [address] [place] [address] Antione Ordaz M.D. [address] [place] [address] Lab Monitoring (Collected 03/29/23) Social History Tobacco [...] How often do you attend baptism or episcopal serv ices? Never 08/15/2021 Do [...] and heating? Not hard at all 02/01/2023 [facility] - Occupational Stress Questionnaire Answer Date [...] your living situation today? I have a [facility] place to live 02/01/2023 Education Answer Date Recorded What is the highest level of school you have completed or the highest degree you have received? Professional school degree (e.g., MD, DDS, DVM, EFREM) 07/16/2020 Sex and Gender Information Value Date Recorded Sex Assigned at Male 08/15/2021 10:21 AM JAVA DEVELOPER ANALYST Gender Identity Male 08/15/2021 10:21 AM JAVA DEVELOPER ANALYST Sexual Orientation Straight 08/15/2021 10 :21 AM JAVA DEVELOPER ANALYST documented as of this encounter Miscellaneous Notes * Telephone Encounter - Soha Kaur L.P.N. - 03/29/2023 2:32 PM CDT ASSESSMENT [...] CDT Ancillary Procedure Department of Ophthalmology in [place], [place] [address] [place] [phone] Sarah Dick M.D. [address] [place] [phone] 11/29/2023 3:20 PM CDT Ancillary Procedure Department of Ophthalmology in [place], [place] [address] [place] [phone] Sarah Dick M.D. [address] [place] [phone] 11/29/2023 3:30 PM CDT Office Visit Department of Ophthalmology in [place], [place] [address] [place] [phone] Sarah Dick M.D. [address] [place] [phone] documented as of this encounter Procedures Procedure Name Priority Date/Time Associated Diagnosis Comments CBC WITH DIFFERENTIAL, B Routine 03/29/2023 documented in this encounter Results * CBC with Differential, Blood (03/29/2023) EXT Platelet Count 271 140 - 440 [facility] EXT Neutrophils 2.53 1.7 - 7 [facility] EXT Hemoglobin 14.7 13.5 - 17.5 [facility] EXT Leukocytes 5.4 4.5 - 11.0 [facility] Blood (Blood, Venous) Antione Ordaz M.D. LAB BLOOD ADD-ON [facility] [address] [place] [address], [facility] [phone] documented in this encounter Visit Diagnoses Not on filedocumented in this encounter
--- OUTSIDE RECORDS SUMMARY | 2023-10-13 08:09 | XMS_ITS | Encounter Summary ---
Author Name Unknown Organization [facility] Address [address] [place] [address] Care Team Providers Care Trauma Program Manager Name Role Phone Unavailable Primary Care Provider Unavailabl e Reason for Visit * Reason Comments Med Refill Encounter Details Date Type Department Care Team (Late st Contact Info) Description 04/07/2023 Refill Division of Rheumatology in [place], [place] [address] [place] [address] Antione Ordaz M.D. [address] [place] [phone] Med Refill Social History Tobacco Use Types [...] week 08/15/2021 How often do you attend faith or yazidi serv ices? Never 08/15/2021 Do you belong to any clubs o r organizations such as faith groups, unions, fraternal or athletic groups, or [...] your living situation today? I have a [facility] place to live 04/07/2023 Education Answer Date Recorded What is the highest level of school you have completed or the highest degree you have received? Professional school degree (e.g., MD, DDS, DVM, EFREM) 07/16/2020 Sex and Gender Information Value Date Recorded Sex Assigned at Male 08/15/2021 10:21 AM HUMANITIES PROFESSOR Gender Identity Male 08/15/2021 10:21 AM HUMANITIES PROFESSOR Sexual Orientation Straight 08/15/2021 10 :21 AM HUMANITIES PROFESSOR documented as of this encounter Miscellaneous Notes [...] CDT Ancillary Procedure Department of Ophthalmology in [place], [place] [address] [place] [address] Sarah Dick M.D. [address] [place] [phone] 11/29/2023 3:20 PM CDT Ancillary Procedure Department of Ophthalmology in [place], [place] [address] [place] [address] Sarah Dick M.D. [address] [place] [phone] 11/29/2023 3:30 PM CDT Office Visit Department of Ophthalmology in [place], [place] [address] [place] [address] Sarah Dick M.D. 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
--- OUTSIDE RECORDS SUMMARY | 2023-10-13 08:09 | XMS_ITS | Encounter Summary ---
Author Name Unknown Organization [facility] Address [address] [place] [address] Care Team Providers Care Post Office Manager Name Role Phone Elsewhere, Pcp Primary Care Provider Unavailabl e Reason for Referral * Outpatient (Routine) - Pending Review Specialty Diagnoses / Procedures Referred By Don hall Referred To Contact Rheumatology Christofer England APRN, C.N.P. [address] [place] [phone] [facility] Referral ID Status Reason Start Date Expiration Date V isits Requested Visits Authorized [id number] Pending Review 04/14/2023 04/13/2026 1 1 Reason for Visit * Outpatient (Routine) - Closed Specialty Diagnoses / Procedures Referred By Don hall Referred To Contact Rheumatology Diagnoses dx Antione Ordaz M.D. [address] [place] [phone] [facility] Referral ID Status Reason Start Date Expiration Date Visits Re quested Visits Authorized [id number] Closed 09/04/2022 10/16/2026 1 1 Encounter Details Date Type Department Care Team (Latest Contact Info) Description 04/14/2023 9:30 AM CDT Office Visit Division of Rheumatology in [place], [place] [address] [place] [phone] Christofer England, PRINCE, C.N.P. 200 [place] [phone] Vogt Koyanagi Syndrome Bilateral (Primary Dx); High [...] week 08/15/2021 How often do you attend tenriism or yazdanism serv ices? Never 08/15/2021 Do you belong to any clubs o r organizations such as tenriism groups, unions, fraternal or athletic groups, or [...] and heating? Not hard at all 04/07/2023 [facility] - [facility]ational Stress Questionnaire Answer [...] [facility] to [facility] 04/07/2023 Education Answer Date Recorded What is the highest level of school you have completed or the highest degree you have received? Professional school degree (e.g., MD, DDS, DVM, EFREM) 07/16/2020 Sex and Gender Information Value Date Recorded Sex Assigned at Male 08/15/2021 10:21 AM BOX OFFICE MANAGER Gender Identity Male 08/15/2021 10:21 AM BOX OFFICE MANAGER Sexual Orientation Straight 08/15/2021 10 :21 AM BOX OFFICE MANAGER documented as of this encounter Last Filed [...] a very pleasant 57 y.o. male from [place], [place], presenting today as an established patient [...] follow-up in the Division of Rheumatology at [facility]. Next appointment in 12 months. Rheumatology-related medications: Prescriptions, laboratory monitoring, and refills will be managedby the Division of Rheumatology at [facility]. Disease flares or relapse: Mr. Lai [...] CDT Ancillary Procedure Department of Ophthalmology in [place], [place] [address] [place] [phone] Sarah Dick M.D. [address] [place] [phone] 11/29/2023 3:20 PM CDT Ancillary Procedure Department of Ophthalmology in [place], [place] [address] [place] [address] Sarah Dick M.D. [address] [place] [phone] 11/29/2023 3:30 PM CDT Office Visit Department of Ophthalmology in [place], [place] 200 [place] [address] Sarah Dick M.D. 200 [place] [phone] Scheduled Orders Name Type Priority Associated Diagnoses [...] Medication documented in this encounter Care Teams Post Office Manager Relationship Specialty Start Date End Date Elsewhere, Pcp PCP - General Internal Medicine 04/13/23 documented as of this encounter
--- OUTSIDE RECORDS SUMMARY | 2023-10-13 08:10 | XMS_ITS | Encounter Summary ---
Author Name Unknown Organization [facility] Address [address] [place] [address] Care Team Providers Care Donor Relations Officer Name Role Phone Unavailable Primary Care Provider [...] How often do you attend scientologist or jewish serv ices? Never 08/15/2021 Do you belong [...] and heating? Not hard at all 02/01/2023 [facility] of Occupat ional Health - Occupational Stress [...] your living situation today? I have a [facility] place to live 02/01/2023 Education Answer Date Recorded What is the highest level of school you have completed or the highest degree you have received? Professional school degree (e.g., MD, DDS, DVM, EFREM) 07/16/2020 Sex and Gender Information Value Date Recorded Sex Assigned at Male 08/15/2021 10:21 AM ELECTRIC CAR OPERATOR Gender Identity Male 08/15/2021 10:21 AM ELECTRIC CAR OPERATOR Sexual Orientation Straight 08/15/2021 10 :21 AM ELECTRIC CAR OPERATOR documented as of this encounter Plan of Treatment Upcoming Encounters Date Type Department Care Team (Late st Contact Info) Description 11/29/2023 2:45 PM CDT Ancillary Procedure Department of Ophthalmology in [place], [place] [address] [place] [address] Sarah Dick M.D. [address] [place] [phone] 11/29/2023 3:20 PM CDT Ancillary Procedure Department of Ophthalmology in [place], [place] [address] [place] [address] Sarah Dick M.D. [address] [place] [phone] 11/29/2023 3:30 PM CDT Office Visit Department of Ophthalmology in [place], [place] [address] [place] [address] Sarah Dick M.D. [address] [place] [phone] documented as of this encounter Procedures Procedure [...]
--- OUTSIDE RECORDS SUMMARY | 2023-10-13 08:10 | XMS_ITS | Encounter Summary ---
Author Name Unknown Organization [facility] Address [address] [place] [address] Care Team Providers Care Metal Template Maker Name Role Phone Unavailable Primary Care Provider Unavailabl e Reason for Visit * Reason Comments Med Refill Encounter Details Date Type Department Care Team (Late st Contact Info) Description 10/12/2022 Refill Division of Rheumatology in [place], [place] [address] [place] [address] Antione Ordaz M.D. [address] [place] [phone] Med Refill Social History Tobacco Use Types [...] How often do you attend yarsanism or confucianism serv ices? Never 08/15/2021 Do you belong [...] and heating? Not hard at all 08/15/2021 [facility] of Occupat ional Health - Occupational Stress [...] place to sleep or slept in a correction (including now)? No 08/15/2021 Nutrition Answer Date [...] Sex Assigned at Male 08/15/2021 10:21 AM LABEL PINKER Gender Identity Male 08/15/2021 10:21 AM LABEL PINKER Sexual Orientation Straight 08/15/2021 10 :21 AM LABEL PINKER documented as of this encounter Miscellaneous Notes * Telephone Encounter - Bianca Corcoran RJaquan. - 10/17/2022 10:22 AM LABEL PINKER Prescription renewal request for mycophenolate mofetil (Cellcept) [...] missing monitoring labs. 30 day supply pended. L PINKER documented in this encounter Plan of Treatment Upcoming Encounters Date Type Department Care Team (Late st Contact Info) Description 11/29/2023 2:45 PM CDT Ancillary Procedure Department of Ophthalmology in [place], [place] [address] [place] [address] Sarah Dick M.D. [address] [place] [phone] 11/29/2023 3:20 PM CDT Ancillary Procedure Department of Ophthalmology in [place], [place] [address] [place] [phone] Sarah Dick M.D. [address] [place] [phone] 11/29/2023 3:30 PM CDT Office Visit Department of Ophthalmology in [place], [place] [address] [place] [phone] Sarah Dick M.D. 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
--- OUTSIDE RECORDS SUMMARY | 2023-10-13 08:10 | XMS_ITS | Encounter Summary ---
Author Name Unknown Organization [facility] Address [address] [place] [address] Care Team Providers Care Template Maker Name Role Phone Unavailable Primary Care Provider Unavailabl e Encounter Details Date Type Department Care Team (Late st Contact Info) Description 01/19/2023 Clinical Communication Division of Rheumatology in [place], [place] [address] [place] [address] Christofer England, GAS PLANT DISPATCHER, C.N.P. [address] [place] [address] Social History Tobacco Use Types Packs/Day Years [...] How often do you attend baptist or islam serv ices? Never 08/15/2021 Do [...] and heating? Not hard at all 02/01/2023 [facility] [place] of Occupat ional Health - Occupational Stress [...] your living situation today? I have a [facility] place to live 02/01/2023 Education Answer Date Recorded What is the highest level of school you have completed or the highest degree you have received? Professional school degree (e.g., MD, DDS, DVM, EFREM) 07/16/2020 Sex and Gender Information Value Date Recorded Sex Assigned at Male 08/15/2021 10:21 AM MEDICAL DOCTOR Gender Identity Male 08/15/2021 10:21 AM MEDICAL DOCTOR Sexual Orientation Straight 08/15/2021 10 :21 AM MEDICAL DOCTOR documented as of this encounter Miscellaneous Notes [...] CDT Ancillary Procedure Department of Ophthalmology in [place], [place] [address] [place] [phone] Sarah Dick M.D. [address] [place] [phone] 11/29/2023 3:20 PM CDT Ancillary Procedure Department of Ophthalmology in [place], [place] [address] [place] [phone] Sarah Dick M.D. [address] [place] [phone] 11/29/2023 3:30 PM CDT Office Visit Department of Ophthalmology in [place], [place] [address] [place] [phone] Sarah Dick M.D. [address] [place] [phone] documented as of this encounter Results * HBV DNA Detect/Quant, Serum (04/14/2023 8:36 AM CDT) [facility] HBV DNA Detect/Quant, S Undetected Undetected IU/mL 04/15/2023 1:34 PM CDT [facility] Comment: Result in log IU/mL is Undetected. ----ADDITIONAL INFORMATION---- The quantification range of this assay is 10 to 1,000,000,000 IU/mL (1.00 log to 9.00 log IU/mL). Testing was performed using the devaughn HBV test ([employer] with the devaughn 6800 System. Blood (Blood, Venous) 04/14/2023 8:36 AM CDT 04/14/2023 11:49 AM CDT Christofer England APRN C.N.P. LAB MICROBIO LOGY - BLOOD ORDERABLES [facility] [address] [place] [address] [facility] [address] [place] [address] [place] [address] * Creatinine with Estimated GFR (04/14/2023 8:36 AM CDT) Creatinine 1.02 0.74 - 1.35 mg/dL 04/14/2023 9:30 AM CDT DTL Estimated GFR (eGFR) 86 >=60 mL/min/BSA 04/14/2023 9:30 AM CDT [facility] Comment: Estimated GFR calculated using the 2020 CKD_EPI creatinine equation. Blood (Blood, Venous) 04/14/2023 8:36 AM CDT 04/14/2023 9:14 AM CDT Christofer England APRN, C.N.P. LAB BLOOD AD D-ON Performing Organization Address City/[facility]/ZIP Co de Phone Number [address] [place] [address] * AST (Aspartate Aminotransferase) (04/14/2023 8:36 AM CDT) Pathologist [facility] Aspartate Aminotransferase (AST), S 29 8 - 48 U/L 04/14/2023 9:30 AM CDT DTL Blood (Blood, Venous) 04/14/2023 8:36 AM CDT 04/14/2023 9:14 AM CDT Christofer England APRN, C.N.P. LAB BLOOD AD D-ON Performing Organization Address City/[facility]/ZIP Co de Phone Number [address] [place] [address] * CBC with Differential, Blood (04/14/2023 8:36 [...] England APRN, C.N.P. 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
--- OUTSIDE RECORDS SUMMARY | 2023-10-13 08:10 | XMS_ITS | Encounter Summary ---
Author Name Unknown Organization [facility] Address [address] [place] [address] Care Team Providers Care Spray Worker Name Role Phone Unavailable Primary Care Provider Unavailabl e Reason for Visit * Reason Onset Date Comments Appointment 10/17/2022 For med refills Encounter Details Date Type Department Care Team (Latest Contact Info) Description 10/17/2022 Clinical Communication Division of Rheumatology in [place], [place] [address] [place] [address] Antione Ordaz M.D. [address] [place] [phone] Appointment (For med refills) Social History Tobacco [...] week 08/15/2021 How often do you attend worship or advent serv ices? Never 08/15/2021 Do you belong to any clubs o r organizations such as worship groups, unions, fraternal or athletic groups, or [...] and heating? Not hard at all 08/15/2021 [facility] [place] of Occupat ional Health - Occupational Stress [...] place to sleep or slept in a half-way (including now)? No 08/15/2021 Nutrition Answer Date [...] Sex Assigned at Male 08/15/2021 10:21 AM STOCK CONTROLLER Gender Identity Male 08/15/2021 10:21 AM STOCK CONTROLLER Sexual Orientation Straight 08/15/2021 10 :21 AM STOCK CONTROLLER documented as of this encounter Plan of Treatment Upcoming Encounters Date Type Department Care Team (Late st Contact Info) Description 11/29/2023 2:45 PM CDT Ancillary Procedure Department of Ophthalmology in [place], [place] [address] [place] [phone] Sarah Dick M.D. [address] [place] [phone] 11/29/2023 3:20 PM CDT Ancillary Procedure Department of Ophthalmology in [place], [place] [address] [place] [phone] Sarah Dick M.D. [address] [place] [phone] 11/29/2023 3:30 PM CDT Office Visit Department of Ophthalmology in [place], [place] [address] [place] [address] Sarah Dick M.D. [address] [place] [phone] documented as of this encounter Visit Diagnoses Not on filedocumented in this encounter
--- OUTSIDE RECORDS SUMMARY | 2023-10-13 08:10 | XMS_ITS | Encounter Summary ---
Author Name Unknown Organization [facility] Address [address] [place] [address] Care Team Providers Care Geophysical Operator Name Role Phone Unavailable Primary Care Provider Unavailabl e Encounter Details Date Type Department Care Team (Latest Contact Info) Description 02/06/2023 8:00 AM CDT Ancillary Procedure Department of Ophthalmology in [place], [place] [address] [place] [address] Sarah Dick M.D. [address] [place] [phone] Membrane Macula Epiretinal Bilateral (Primary Dx); Vogt [...] week 08/15/2021 How often do you attend advent or cheondoism serv ices? Never 08/15/2021 Do you belong to any clubs o r organizations such as advent groups, unions, fraternal or athletic groups, or [...] and heating? Not hard at all 02/01/2023 [facility] [place] of Occupat ional Health - Occupational Stress [...] your living situation today? I have a [facility] place to live 02/01/2023 Education Answer Date Recorded What is the highest level of school you have completed or the highest degree you have received? Professional school degree (e.g., MD, DDS, DVM, EFREM) 07/16/2020 Sex and Gender Information Value Date Recorded Sex Assigned at Male 08/15/2021 10:21 AM LATHE SCALPER OPERATOR Gender Identity Male 08/15/2021 10:21 AM LATHE SCALPER OPERATOR Sexual Orientation Straight 08/15/2021 10 :21 AM LATHE SCALPER OPERATOR documented as of this encounter Plan of Treatment Upcoming Encounters Date Type Department Care Team (Late st Contact Info) Description 11/29/2023 2:45 PM CDT Ancillary Procedure Department of Ophthalmology in [place], [place] [address] [place] [address] Sarah Dick M.D. [address] [place] [phone] 11/29/2023 3:20 PM CDT Ancillary Procedure Department of Ophthalmology in [place], [place] [address] [place] [phone] Sarah Dick M.D. [address] [place] [phone] 11/29/2023 3:30 PM CDT Office Visit Department of Ophthalmology in [place], [place] [address] [place] [address] Sarah Dick M.D. [address] [place] [address] documented as of this encounter Procedures Procedure [...]
--- OUTSIDE RECORDS SUMMARY | 2023-10-13 08:10 | XMS_ITS | Encounter Summary ---
Author Name Unknown Organization [facility] Address [address] [place] [address] Care Team Providers Care Room Cooler Installer Name Role Phone Unavailable Primary Care Provider Unavailabl e Reason for Referral * Outpatient (Routine) - Closed Specialty Diagnoses / Procedures Referred By Don hall Referred To Contact Ophthalmology Diagnoses Vogt Koyanagi Syndrome Bilateral Sarah Dick M.D. [address] [place] [address] [facility] Referral ID Status Reason Start Date Expiration Date Visits Re quested Visits Authorized [id number] Closed 04/20/2020 05/20/2035 1 1 Reason for Visit * Outpatient (Routine) - Closed Specialty Diagnoses / Procedures Referred By Don hall Referred To Contact Ophthalmology Diagnoses ov Sarah Dick M.D. [address] [place] [address] [facility] Referral ID Status Reason Start Date Expiration Date Visits Re quested Visits Authorized [id number] Closed 08/12/2022 08/11/2025 1 1 Encounter Details Date Type Department Care Team (Latest Contact Info) Description 11/28/2022 9:00 AM CDT Office Visit Department of Ophthalmology in [place], [place] [address] [place] [phone] Sarah Dick M.D. [address] [place] [address] Vogt Koyanagi Syndrome Bilateral (Primary Dx) Social [...] How often do you attend confucianism or worship serv ices? Never 08/15/2021 Do you belong [...] and heating? Not hard at all 08/15/2021 [facility] [place] of Occupat ional Health - Occupational Stress [...] Sex Assigned at Male 08/15/2021 10:21 AM SECURITY INCIDENT RESPONSE SPECIALIST Gender Identity Male 08/15/2021 10:21 AM SECURITY INCIDENT RESPONSE SPECIALIST Sexual Orientation Straight 08/15/2021 10 :21 AM SECURITY INCIDENT RESPONSE SPECIALIST documented as of this encounter Progress Notes * Sarah Dick M.D. 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 He had a [facility] for a check up - called for an earlier appointment. Saw Dr. Shahid 2-3 days after that. He did not have any redness or light sensitivity at that time. 02/18/20 - golf range attendant Dr. Fifi Shaihd at [facility] in [place]. He had had red eyes for 2-3 [...] AST slightly elevated.) He was referred to audioprosthologist Dr. Ledesma in [place]. On 02/19/20, he saw Dr. Ledesma who [...] folds. 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 He was admitted for [...] macular serous fluid were also resolving. Account Support Associate Dr. Nancy Meeks - 02/28/20. He was [...] as evaluation with ENT and rheumatology at [place]. Subsequently, he did increase prednisone to 20mg x 2 wks, 15 mg x 2wks, then 10 mg. The tinnitus isresolved, he is not sure if the hearing loss has improved. The most recent telemedicine visit with Dr. Meeks was 05/22/20. PMH Gluten sensitivity, lactose intolerance. 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 #2 status post LASIK (2000) #3 Positive hepatitis B core antibody CLINICAL COURSE FIRST EVALUATION WITH [facility] - telemedicine due to S quarantine - [...] the testing and imaging suggests that the Olmp-Yorckfab-Exysir syndrome uveitis is currently controlled. It sounds [...] systemic corticosteroid sparing medication improves outcomes in Kexu-Buxqzahe-Ivmepx syndrome uveitis by lowering the risk of [...] His is on a Facebook page for Ffvl-Covzxanf-Ncpniu syndrome - wondering which medication he should take. They would like to consolidate care here with specialists who have familiarity with Jofm-Rrvrgqtl-Usvkax syndrome. Therefore, I will refer him to [...] the literature reporting efficacy of adalimumab in Mkqw-Ovcmnqie-Hfrjls syndrome. 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 (The headache related to Vsyt-Gjabzqwp-Mbkauu syndrome is different than previous tension headaches.) [...] illnesses/infections He had labs on Monday through [facility]. (results not visible in Epic; most [...] Dr. Zelaya Rheum: Dr. Nancy Meeks (in [facility]) now Dr. Ordaz ENT Dr. Cj Garnica documented in this encounter Plan of Treatment Upcoming Encounters Date Type Department Care Team (Late st Contact Info) Description 11/29/2023 2:45 PM CDT Ancillary Procedure Department of Ophthalmology in [place], [place] [address] [place] [address] Sarah Dick M.D. [address] [place] [phone] 11/29/2023 3:20 PM CDT Ancillary Procedure Department of Ophthalmology in [place], [place] [address] [place] [phone] Sarah Dick M.D. [address] [place] [phone] 11/29/2023 3:30 PM CDT Office Visit Department of Ophthalmology in [place], [place] [address] [place] [address] Sarah Dick M.D. [address] [place] [address] Scheduled Referrals Name Type Priority Associated Diagnoses [...]
--- OUTSIDE RECORDS SUMMARY | 2023-10-13 08:10 | XMS_ITS | Encounter Summary ---
Author Name Unknown Organization [facility] Address [address] [place] [address] Care Team Providers Care Button Grader Name Role Phone Unavailable Primary Care Provider Unavailabl e Reason for Visit * Reason Onset Date Comments Lab Monitoring 11/23/2022 Collected 3 Encounter Details Date Type Department Care Team (Latest Contact Info) Description 11/23/2022 Clinical Communication Division of Rheumatology in [place], [place] [address] [place] [address] Antione Ordaz M.D. [address] [place] [address] Lab Monitoring (Collected 11/22/22) Social History Tobacco [...] week 08/15/2021 How often do you attend jehovah's witness or episcopal serv ices? Never 08/15/2021 Do you belong to any clubs o r organizations such as jehovah's witness groups, unions, fraternal or athletic groups, or [...] and heating? Not hard at all 08/15/2021 [facility] [place] of Occupat ional Health - Occupational Stress [...] place to sleep or slept in a senior care (including now)? No 08/15/2021 Nutrition Answer Date [...] Sex Assigned at Male 08/15/2021 10:21 AM FIELD HOCKEY AND LACROSSE COACH Gender Identity Male 08/15/2021 10:21 AM FIELD HOCKEY AND LACROSSE COACH Sexual Orientation Straight 08/15/2021 10 :21 AM FIELD HOCKEY AND LACROSSE COACH documented as of this encounter Miscellaneous Notes [...] CDT Ancillary Procedure Department of Ophthalmology in [place], [place] [address] [place] [address] Sarah Dick M.D. [address] [place] [address] 11/29/2023 3:20 PM CDT Ancillary Procedure Department of Ophthalmology in [place], [place] [address] [place] [address] Sarah Dick M.D. [address] [place] [phone] 11/29/2023 3:30 PM CDT Office Visit Department of Ophthalmology in [place], [place] [address] [place] [address] Sarah Dick M.D. [address] [place] [phone] documented as of this encounter Procedures Procedure Name Priority Date/Time Associated Diagnosis Comments CBC WITH DIFFERENTIAL, B Routine 11/22/2022 documented in this encounter Results * CBC with Differential, Blood (11/22/2022) EXT Platelet Count 272 140 - 440 [facility] EXT Neutrophils 3.83 1.7 - 7 [facility] EXT Hemoglobin 14.4 13.5 - 17.5 [facility] EXT Leukocytes 6.5 4.5 - 11.0 [facility] Blood (Blood, Venous) Antione Ordaz M.D. LAB BLOOD ADD-ON [facility] [address] [place] [address], [facility] [phone] documented in this encounter Visit Diagnoses Not on filedocumented in this encounter
--- OUTSIDE RECORDS SUMMARY | 2023-10-13 08:10 | XMS_ITS | Encounter Summary ---
Author Name Unknown Organization [facility] Address [address] [place] [address] Care Team Providers Care Marketing Professor Name Role Phone Unavailable Primary Care Provider Unavailabl e Reason for Referral * Outpatient (Routine) - Closed Specialty Diagnoses / Procedures Referred By Don hall Referred To Contact Ophthalmology Diagnoses Vogt Koyanagi Syndrome Bilateral Sarah Dick M.D. [address] [place] [address] [facility] Referral ID Status Reason Start Date Expiration Date Visits Re quested Visits Authorized [id number] Closed 09/04/2025 02/05/2027 1 1 Reason for Visit * Outpatient (Routine) - Closed Specialty Diagnoses / Procedures Referred By Don hall Referred To Contact Ophthalmology Diagnoses Vogt Koyanagi Syndrome Bilateral Sarah Dick M.D. [address] [place] [address] [facility] Referral ID Status Reason Start Date Expiration Date Visits Re quested Visits Authorized [id number] Closed 04/20/2020 05/20/2035 1 1 Encounter Details Date Type Department Care Team (Latest Contact Info) Description 02/06/2023 8:30 AM CDT Office Visit Department of Ophthalmology in [place], [place] [address] [place] [phone] [place] [address] Vogt Koyanagi Syndrome Bilateral (Primary Dx); Membrane [...] How often do you attend quaker or confucianist serv ices? Never 08/15/2021 Do [...] and heating? Not hard at all 02/01/2023 [facility] - Occupational Stress Questionnaire Answer [...] Sex Assigned at Male 08/15/2021 10:21 AM CRANE HOIST OR LIFT OPERATOR Gender Identity Male 08/15/2021 10:21 AM CRANE HOIST OR LIFT OPERATOR Sexual Orientation Straight 08/15/2021 10 :21 AM CRANE HOIST OR LIFT OPERATOR documented as of this encounter Progress Notes * Sarah Dick M.D. 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 He is adopted, Mother is [place], father of ancestry His symptoms started when [...] vision. He had a regular appointment with [facility] eye doctor for a check up - called for an earlier appointment. Saw Dr. Shahid 2-3 days after that. He did not have any redness or light sensitivity at that time. 02/18/20 - telephone directory deliverer Dr. Fifi Shahid at [facility] in [place]. He had had red eyes for 2-3 [...] AST slightly elevated.) He was referred to sales branch manager Dr. Ledesma in [place]. On 02/19/20, he saw Dr. Ledesma who [...] folds. Fluorescein angiography findings were consistent with Nauu-Xcamsqul-Lwojmv syndrome per notes. He was admitted for [...] macular serous fluid were also resolving. Oil Distributor Dr. Nancy Meeks - 02/28/20. He was [...] as evaluation with ENT and rheumatology at [place]. Subsequently, he did increase prednisone to 20mg x 2 wks, 15 mg x 2wks, then 10 mg. The tinnitus isresolved, he is not sure if the hearing loss has improved. The most recent telemedicine visit with Dr. Meeks was 05/22/20. PMH Gluten sensitivity, lactose intolerance. 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 # Posterior vitreous detachment, right eye # status post LASIK (2000) # Positive hepatitis B core antibody CLINICAL COURSE FIRST EVALUATION WITH [facility] - telemedicine due to [facility] quarantine - [...] the testing and imaging suggests that the Hdtw-Kpanxxxg-Eoxnwy syndrome uveitis is currently controlled. It sounds [...] systemic corticosteroid sparing medication improves outcomes in Vnhf-Kcfsiivl-Dambqm syndrome uveitis by lowering the risk of [...] His is on a Facebook page for Elye-Mksesthr-Jyownp syndrome - wondering which medication he should take. They would like to consolidate care here with specialists who have familiarity with Fmfu-Qjxkyqhs-Cqomtn syndrome. Therefore, I will refer him to [...] the literature reporting efficacy of adalimumab in Kkre-Nhawyhye-Lwlzfb syndrome. 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 (The headache related to Uaaz-Lmvvtetx-Cwzbgy syndrome is different than previous tension headaches.) [...] illnesses/infections He had labs on Monday through [facility]. (results not visible in Epic; most recent [...] Encounters Date Type Department Care Team (Late Contact Info) Description 11/29/2023 2:45 PM CDT Ancillary Procedure Department of Ophthalmology in [place], [place] [address] [place] [phone] Sarah Dick M.D. [address] [place] [phone] 11/29/2023 3:20 PM CDT Ancillary Procedure Department of Ophthalmology in [place], [place] [address] [place] [phone] Sarah Dick M.D. [address] [place] [phone] 11/29/2023 3:30 PM CDT Office Visit Department of Ophthalmology in [place], [place] [address] [place] [address] Sarah Dick M.D. [address] [place] [address] Scheduled Referrals Name Type Priority Associated Diagnoses [...] Dick M.D. OPHTH TOMOGRAPHY OPHTHALMOLOGY IMAGING EXAM * Fluorescein Angiography - [...] macular leakage. Sarah Dick M.D. OPHTH PHOTOGRAPHY Performing Organization Address 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
--- OUTSIDE RECORDS SUMMARY | 2023-10-13 08:10 | XMS_ITS | Encounter Summary ---
Author Name Unknown Organization [facility] Address [address] [place] [address] Care Team Providers Care Center Consultant Name Role Phone Unavailable Primary Care [...] How often do you attend mandaeism or gnosticism serv ices? Never 08/15/2021 Do you belong [...] and heating? Not hard at all 08/15/2021 [facility] of Occupat ional [facility] - Occupational Stress Questionnaire Answer [...] place to sleep or slept in a fpc (including now)? No 08/15/2021 Nutrition Answer Date [...] Sex Assigned at Male 08/15/2021 10:21 AM CAPACITY ANALYST Gender Identity Male 08/15/2021 10:21 AM CAPACITY ANALYST Sexual Orientation Straight 08/15/2021 10 :21 AM CAPACITY ANALYST documented as of this encounter Plan of Treatment Upcoming Encounters Date Type Department Care Team (Late st Contact Info) Description 11/29/2023 2:45 PM CDT Ancillary Procedure Department of Ophthalmology in [place], [place] [address] [place] [phone] Sarah Dick M.D. [address] [place] [phone] 11/29/2023 3:20 PM CDT Ancillary Procedure Department of Ophthalmology in [place], [place] [address] [place] [phone] Sarah Dick M.D. [address] [place] [phone] 11/29/2023 3:30 PM CDT Office Visit Department of Ophthalmology in [place], [place] [address] [place] [phone] Sarah Dick M.D. [address] [place] [phone] documented as of this encounter Procedures Procedure [...]
--- OUTSIDE RECORDS SUMMARY | 2023-10-13 08:10 | XMS_ITS | Encounter Summary ---
Author Name Unknown Organization [facility] Address [address] [place] [address] Care Team Providers Care Plumbing And Heating Mechanic Name Role Phone Unavailable Primary Care Provider Unavailabl e Reason for Visit * Reason Comments Med Refill Encounter Details Date Type Department Care Team (Late st Contact Info) Description 12/09/2022 Refill Division of Rheumatology in [place], [place] [address] [place] [address] Antione Ordaz M.D. [address] [place] [phone] Med Refill Social History Tobacco Use Types [...] week 08/15/2021 How often do you attend zoroastrianism or methodist serv ices? Never 08/15/2021 Do you belong to any clubs o r organizations such as zoroastrianism groups, unions, fraternal or athletic groups, or [...] and heating? Not hard at all 08/15/2021 [facility] of Occupat ional Health - Occupational Stress [...] Sex Assigned at Male 08/15/2021 10:21 AM SWEEP MOLDER Gender Identity Male 08/15/2021 10:21 AM SWEEP MOLDER Sexual Orientation Straight 08/15/2021 10 :21 AM SWEEP MOLDER documented as of this encounter Miscellaneous Notes * Telephone Encounter - Guerita León RJaquan. - 12/09/2022 12:52 PM CDT Prescription renewal [...] CDT Ancillary Procedure Department of Ophthalmology in [place], [place] [address] [place] [address] Sarah Dick M.D. [address] [place] [phone] 11/29/2023 3:20 PM CDT Ancillary Procedure Department of Ophthalmology in [place], [place] [address] [place] [phone] Sarah Dick M.D. [address] [place] [phone] 11/29/2023 3:30 PM CDT Office Visit Department of Ophthalmology in [place], [place] [address] [place] [address] Sarah Dick M.D. [address] [place] [phone] documented as of this encounter Visit Diagnoses Diagnosis Vogt Koyanagi Syndrome Bilateral documented in this encounter
--- OUTSIDE RECORDS SUMMARY | 2023-10-13 08:10 | XMS_ITS | Encounter Summary ---
Author Name Unknown Organization [facility] Address [address] [place] [address] Care Team Providers Care Roof Promenade Tile Setter Name Role Phone Unavailable Primary Care Provider Unavailabl e Reason for Visit * Outpatient (Routine) - Closed Specialty Diagnoses / Procedures Referred By Don hall Referred To Contact Ophthalmology Diagnoses Vogt Koyanagi Syndrome Bilateral Procedures OPTICAL COHERENCE TOMOGRAPHY - MACULA/RETINA - OU - BOTH EYES OPH TEST OCT Sarah Dick M.D. [address] [place] [address] Rst Oph [facility] [address] [place] [phone] Referral ID Status Reason Start Date Expiration Date Visits Re quested Visits Authorized [id number] Closed 11/28/2022 05/20/2035 1 1 Encounter Details Date Type Department Care Team (Latest Contact Info) Description 11/28/2022 8:50 AM CDT Ancillary Procedure Department of Ophthalmology in [place], [place] [address] [place] [address] Sarah Dick M.D. [address] [place] [phone] Vogt Koyanagi Syndrome Bilateral Social History [...] week 08/15/2021 How often do you attend gnosticism or latter day serv ices? Never 08/15/2021 Do you belong to any clubs o r organizations such as gnosticism groups, unions, fraternal or athletic groups, or [...] and heating? Not hard at all 08/15/2021 [facility] of Occupat ional Health - [...] place to sleep or slept in a prison (including now)? No 08/15/2021 Nutrition Answer Date [...] Sex Assigned at Male 08/15/2021 10:21 AM LAMINATION TECHNICIAN Gender Identity Male 08/15/2021 10:21 AM LAMINATION TECHNICIAN Sexual Orientation Straight 08/15/2021 10 :21 AM LAMINATION TECHNICIAN documented as of this encounter Plan of Treatment Upcoming Encounters Date Type Department Care Team (Late st Contact Info) Description 11/29/2023 2:45 PM CDT Ancillary Procedure Department of Ophthalmology in [place], [place] [address] [place] [address] Sarah Dick M.D. [address] [place] [phone] 11/29/2023 3:20 PM CDT Ancillary Procedure Department of Ophthalmology in [place], [place] [address] [place] [address] Sarah Dick M.D. [address] [place] [address] 11/29/2023 3:30 PM CDT Office Visit Department of Ophthalmology in [place], [place] [address] [place] [address] Sarah Dick M.D. [address] [place] [address] documented as of this encounter Procedures Procedure [...]
--- OUTSIDE RECORDS SUMMARY | 2023-10-13 08:10 | XMS_ITS | Encounter Summary ---
Author Name Unknown Organization [facility] Address [address] [place] [address] Care Team Providers Care Dip Painter Name Role Phone Unavailable Primary Care Provider Unavailabl e Reason for Referral * Outpatient (Routine) - Closed Specialty Diagnoses / Procedures Referred By Don hall Referred To Contact Rheumatology Diagnoses dx Antione Ordaz M.D. [address] [place] [phone] [facility] Referral ID Status Reason Start Date Expiration Date Visits Re quested Visits Authorized [id number] Closed 09/04/2022 10/16/2026 1 1 ILATED RIB FITTER Encounter Details Date Type Department Care Team (Late st Contact Info) Description 10/17/2022 Orders Only Division of Rheumatology in [place], [place] [address] [place] [phone] Antione Ordaz M.D. [address] [place] [phone] Vogt Koyanagi Syndrome Bilateral (Primary Dx); Hepatitis [...] How often do you attend taoism or baptist serv ices? Never 08/15/2021 Do you belong [...] and heating? Not hard at all 08/15/2021 [facility] - Occupational [...] place to sleep or slept in a chcf (including now)? No 08/15/2021 Nutrition Answer Date [...] Sex Assigned at Male 08/15/2021 10:21 AM VENTILATED RIB FITTER Gender Identity Male 08/15/2021 10:21 AM VENTILATED RIB FITTER Sexual Orientation Straight 08/15/2021 10 :21 AM VENTILATED RIB FITTER documented as of this encounter Plan of Treatment Upcoming Encounters Date Type Department Care Team (Late st Contact Info) Description 11/29/2023 2:45 PM CDT Ancillary Procedure Department of Ophthalmology in [place], [place] [address] [place] [phone] Sarah Dick M.D. [address] [place] [phone] 11/29/2023 3:20 PM CDT Ancillary Procedure Department of Ophthalmology in [place], [place] [address] [place] [phone] Sarah Dick M.D. [address] [place] [phone] 11/29/2023 3:30 PM CDT Office Visit Department of Ophthalmology in [place], [place] [address] [place] [address] Sarah Dick M.D. 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
--- OUTSIDE RECORDS SUMMARY | 2023-10-13 08:10 | XMS_ITS | Encounter Summary ---
Author Name Unknown Organization [facility] Address [address] [place] [address] Care Team Providers Care Computer Systems Consultant Name Role Phone Unavailable Primary Care Provider Unavailabl e Reason for Visit * Reason Comments Med Refill Encounter Details Date Type Department Care Team ([facility] st Contact Info) Description 03/17/2023 Refill Division of Rheumatology in [place], [place] [address] [place] [address] Reese Jimenez M.D. [address] [place] [phone] Med Refill Social History Tobacco Use Types [...] often do you attend jehovah's witness or latter day serv ices? Never 08/15/2021 [...] and heating? Not hard at all 02/01/2023 [facility] - Occupational Stress Questionnaire Answer Date [...] your living situation today? I have a [facility] place to live 02/01/2023 Education Answer Date Recorded What is the highest level of school you have completed or the highest degree you have received? Professional school degree (e.g., MD, DDS, DVM, EFREM) 07/16/2020 Sex and Gender Information Value Date Recorded Sex Assigned at Male 08/15/2021 10:21 AM JUICE WEIGHER Gender Identity Male 08/15/2021 10:21 AM JUICE WEIGHER Sexual Orientation Straight 08/15/2021 10 :21 AM JUICE WEIGHER documented as of this encounter Miscellaneous Notes [...] CDT Ancillary Procedure Department of Ophthalmology in [place], [place] [address] [place] [phone] Sarah Dick M.D. [address] [place] [phone] 11/29/2023 3:20 PM CDT Ancillary Procedure Department of Ophthalmology in [place], [place] [address] [place] [phone] Sarah Dick M.D. [address] [place] [phone] 11/29/2023 3:30 PM CDT Office Visit Department of Ophthalmology in [place], [place] [address] [place] [phone] Sarah Dick M.D. [address] [place] [phone] documented as of this encounter Visit Diagnoses Diagnosis Vogt Koyanagi Syndrome Bilateral documented in this encounter
--- NOTE | 2023-10-13 09:25 | W.ANESCHARGE ---
Anesthesia Charges Start Date/Time Anesthesia Start Date: 10/13/23 Anesthesia Start Time: 08:58 Stop Date/Time Anesthesia Stop Date: 10/13/23 Anesthesia Stop Time: 09:20
== END 2023-10-13 08:06 | disposition home or self-care (01) ==
LOC: OP CLINIC 08:06
PROVIDERS: PCP Internal Medicine; Visit Provider Internal Medicine
DX: Z12.11 Encounter for screening for malignant neoplasm of colon (principal); K64.9 Unspecified hemorrhoids
CPT/HCPCS: 00811; 45380; 88305; J2704

== ENCOUNTER 2025-01-30 15:31 | Outpatient (CLI) | payer OTHER, SELFPAY | END 2025-01-30 15:32 | disposition home or self-care (01) | LOC: NFLDREF 02-03 17:24 | PROVIDERS: PCP Internal Medicine; Referring Provider Internal Medicine; Visit Provider Family Medicine | DX: N39.0 Urinary tract infection, site not specified (principal) | CPT/HCPCS: 87086 ==